=== PATIENT | male | born 1960 | race Caucasian/White ===

== ENCOUNTER 2022-05-30 18:11 | Emergency (ER) | payer MEDICARE, SELFPAY ==
[2022-05-30 18:22] VITALS: BP 144/94; PULSE 99; RESP 18; TEMP 38.2; O2SAT 95
[2022-05-30 18:24] LABS: Basophils % 0.4 %; Hematocrit 49.3 % (42.0-52.0); Hemoglobin 16.9 g/dL (11.7-16.6); Lymphocytes # 1.4 10^3/uL (0.8-4.8); Mean Corpuscular HGB Conc 34.3 g/dL (30.0-36.0); Mean Corpuscular Hemoglobin 30.3 pg (28.0-34.0); Mean Corpuscular Volume 88.4 fl (80-94); Mean Platelet Volume 11.3 fL (7.4-10.4); Monocytes # 0.6 10^3/uL (0.2-0.9); Monocytes % 10.6 %; Neutrophils # 3.26 10^3/uL (1.8-7.7); Neutrophils % 62.6 %; Nucleated Red Blood Cells % 0 %; Platelet Count 139 10^3/cmm (130-400); Red Blood Count 5.58 10^6/uL (4.1-5.3); Red Cell Distribution Width 12.5 % (12.1-15.1); White Blood Count 5.2 10^3/uL (4.0-10.0)
--- NOTE | 2022-05-30 19:12 | CTR_ITS ---
PROCEDURE INFORMATION: Exam: CT Abdomen And Pelvis Without Contrast Exam date and time: 05/30/2022 8:00 PM Age: 61 years old Clinical indication: Other: Rlq; Prior surgery; Surgery date: 6+ months; Surgery type: Inguinal hernia repair and lumbar surgery; Patient HX: Patient felt excruciating pain after lifting a box of 18 x 18 ceramic tile; Additional info: Abd pain TECHNIQUE: Imaging protocol: Computed tomography of the abdomen and pelvis without contrast. Sagittal and coronal reformatted images were created and reviewed. Radiation optimization: All CT scans at this facility use at least one of these dose optimization techniques: automated exposure control; mA and/or kV adjustment per patient size (includes targeted exams where dose is matched to clinical indication); or iterative reconstruction. COMPARISON: No relevant prior studies available. RADIATION DOSE METRICS: Total DLP (mGy-cm): 1286.23 FINDINGS: Limitations: Evaluation of solid organs and vasculature is limited without intravenous contrast. Lungs: Mild elevation of the right hemidiaphragm. Compressive atelectasis in the right middle and lower lobes. Pleural spaces: No pleural effusion. Heart: Mild enlargement of the heart. Liver: Diffuse, mildly decreased attenuation in the liver. Findings are consistent with mild fatty infiltration. Gallbladder and bile ducts: The gallbladder is unremarkable. No biliary ductal dilatation. Pancreas: The pancreas is unremarkable. No pancreatic ductal dilatation. Spleen: The spleen is unremarkable. Adrenal glands: The right and left adrenal glands are unremarkable. Kidneys and ureters: The right and left kidneys are unremarkable. The right and left ureters are unremarkable. Stomach and bowel: Scattered diverticula in the sigmoid colon. No evidence for diverticulitis. No acute abnormality in the small bowel. No acute abnormality in the stomach. Appendix: Appendix not definitely visualized. No inflammatory changes in the pericecal region however. Intraperitoneal space: No free intraperitoneal air. No ascites. No loculated fluid collections to suggest an abscess. Vasculature: Mild atherosclerotic changes in the visualized arteries. No evidence for aortic aneurysm. Lymph nodes: No lymphadenopathy. Urinary bladder: The bladder is incompletely filled, which can limit evaluation. No focal abnormality in the bladder however. Reproductive: Nonspecific parenchymal calcifications in the prostate gland. Bones/joints: Moderate degenerative changes at both the right and left hips. Patient has had previous posterior fusion at L5-S1 with an L5 laminectomy. Multilevel degenerative changes of varying severity in the visualized spine. No acute fracture. Soft tissues: No acute abnormality in the extra-abdominal soft tissues. CT/CT abdomen pelvis wo con [id number] IMPRESSION: 1. No acute abnormality in the abdomen or pelvis. 2. No evidence for acute traumatic injury in the abdomen or pelvis. 3. Mild fatty infiltration of the liver. 4. Scattered diverticula in the sigmoid colon. No evidence for diverticulitis. 5. Incidental/nonacute findings are listed in the report.
--- NOTE | 2022-05-30 19:13 | ED_ITS ---
HPI - Abdominal Pain General: Chief Complaint: Abdominal Pain Stated Complaint: ABDOMINAL PAIN/ HEADACHE Time Seen by Provider: 05/30/22 19:07 Source: patient Mode of arrival: ambulatory Limitations: no limitations History of Present Illness: 61-year-old male who states that he has been having abdominal pain throughout the day. States he is actually had pain for 2 weeks with a getting much worse over the last 2 days. Patient states that pain is sharp and mainly in his lower abdomen. He had low-grade fevers as well as some mild body aches and headache. Denies any vomiting or diarrhea denies any chest pain. Associated Symptoms: Reports fever(s); Denies chills and dysuria Review of Systems Const: Reports: fever(s) and body aches; Denies: chills or change in appetite Eyes: Denies: blurry vision or eye discomfort ENMT: Denies: throat pain or dental pain Card: Denies: chest pain Resp: Denies: dyspnea GI: Reports: abdominal pain : Denies: dysuria Musc: Denies: neck pain or back pain Skin/Breast: Denies: rash Neuro: Denies: headache(s) Psych: Denies: depression Mike/Lymph: Denies: easy bruising All/Imm: Denies: urticaria PFSH ED PFSH: Medical History No pertinent past medical history Social History Substance/Drug Use: never Physical Exam Const: COMMON NORMALS: no acute distress, patient oriented x3 and healthy appearing HENMT: COMMON NORMALS: normocephalic and atraumatic HEAD & SCALP: normocephalic and atraumatic Eye: COMMON NORMALS: Equal, round and reactive pupils present and EOMs intact bilaterally PUPIL: Yes Equal, round and reactive pupils present Neck/C-Spine: COMMON NORMALS: full ROM and supple Chest: COMMONS NORMALS: normal inspection of the chest and normal palpation of entire chest wall Resp: COMMON NORMALS: normal respiratory effort, No retractions, No use of accessory muscles and clear to auscultation bilaterally AUSCULTATION: clear to auscultation bilaterally Cardio: COMMON NORMALS: regular rate, regular rhythm and No murmurs present (Cardio) RATE: regular rate RHYTHM: regular rhythm GI: COMMON NORMALS: Normal to inspection, nondistended, normoactive bowel sounds present, Soft to palpation and no masses PALPATION: Yes Soft to palpation and Yes Tenderness to palpation present (GI) Details: RLQ Extremity: COMMON NORMALS: normal to inspection and full ROM Neuro: COMMON NORMALS: patient oriented x3, moves all extremities and no focal motor deficits Psych: COMMON NORMALS: mental status grossly normal, Normal thought process present and cooperative THOUGHT PROCESS: Normal thought process present Skin: COMMON NORMALS: no rashes or lesions noted and no wounds GENERAL SKIN EXAM: no rashes or lesions noted Course Vital Signs: Vital signs: Vital Signs Temperature 101.8 F H 05/30/22 19:24 Pulse Rate 84 05/30/22 20:33 Respiratory Rate 18 05/30/22 20:33 Blood Pressure 111/72 05/30/22 20:33 Pulse Oximetry 93 05/30/22 20:33 MDM - Abdominal Pain Medical Decision Making Patient presents here with abdominal pain he does have a fever well he could have a viral illness is CT here is normal blood work is normal as well his COVID is negative he has no signs of pneumonia. He is to follow-up with his PCP in 2 to 4 days and return if worsening he understands and agrees to plan. Lab Data : 05/30/22 17:07 05/30/22 19:20 Labs/Radiology: Radiology Impressions Abdomen/Pelvis CT 05/30/22 19:12 IMPRESSION: 1. No acute abnormality in the abdomen or pelvis. 2. No evidence for acute traumatic injury in the abdomen or pelvis. 3. Mild fatty infiltration of the liver. 4. Scattered diverticula in the sigmoid colon. No evidence for diverticulitis. 5. Incidental/nonacute findings are listed in the report. Chest X-Ray 05/30/22 21:30 IMPRESSION: 1. No acute cardiopulmonary process. 2. Incidental/nonacute findings are listed in the report. Laboratory Results WBC 5.2 10^3/uL (4.0-10.0) 05/30/22 17:07 RBC 5.58 10^6/uL (4.1-5.3) H 05/30/22 17:07 Hgb 16.9 g/dL (11.7-16.6) H 05/30/22 17:07 Hct 49.3 % (42.0-52.0) 05/30/22 17:07 MCV 88.4 fl (80-94) 05/30/22 17:07 MCH 30.3 pg (28.0-34.0) 05/30/22 17:07 MCHC 34.3 g/dL (30.0-36.0) 05/30/22 17:07 RDW 12.5 % (12.1-15.1) 05/30/22 17:07 Plt Count 139 10^3/cmm (130-400) 05/30/22 17:07 MPV 11.3 fL (7.4-10.4) H 05/30/22 17:07 Neut % (Auto) 62.6 % 05/30/22 17:07 Lymph % (Auto) 26.0 % 05/30/22 17:07 [place] % (Auto) 10.6 % 05/30/22 17:07 Eos % (Auto) 0.0 % 05/30/22 17:07 Baso % (Auto) 0.4 % 05/30/22 17:07 Neut # (Auto) 3.26 10^3/uL (1.8-7.7) 05/30/22 17:07 Lymph # (Auto) 1.4 10^3/uL (0.8-4.8) 05/30/22 17:07 [place] # (Auto) 0.6 10^3/uL (0.2-0.9) 05/30/22 17:07 Eos # (Auto) 0.0 10^3/uL (0.0-0.8) 05/30/22 17:07 Baso # (Auto) 0.0 10^3/uL (0.0-0.1) 05/30/22 17:07 Nucleated RBC % (auto) 0 % 05/30/22 17:07 Nucleated RBCs # 0.0 /100WBC 05/30/22 17:07 Sodium 135 mmol/L (136-145) L 05/30/22 19:20 Potassium 3.8 mmol/L (3.5-5.1) 05/30/22 19:20 Chloride 100 mmol/L (98-107) 05/30/22 19:20 Carbon Dioxide 21 mmol/L (22-29) L 05/30/22 19:20 Anion Gap 17.8 (5-19) 05/30/22 19:20 BUN 11 mg/dL (8-23) 05/30/22 19:20 Creatinine 0.9 mg/dL (0.7-1.2) 05/30/22 19:20 GFR Calculation 86.1 mL/min (90-130) L 05/30/22 19:20 Glucose 111 mg/dL (65-115) 05/30/22 19:20 Calculated Osmolality 280 mOsm/kg (285-295) L 05/30/22 19:20 Calcium 8.6 mg/dL (8.5-10.5) 05/30/22 19:20 Total Bilirubin 0.6 mg/dL (0.15-1.2) 05/30/22 19:20 AST 50 U/L (0-40) H 05/30/22 19:20 ALT 63 U/L (0-41) H 05/30/22 19:20 Alkaline Phosphatase 126 IU/L (40-130) 05/30/22 19:20 Total Protein 7.0 g/dL (6.6-8.7) 05/30/22 19:20 Albumin 4.2 g/dL (3.5-5.2) 05/30/22 19:20 Globulin 2.8 g/dL (1.3-4.6) 05/30/22 19:20 Lipase 101 U/L (13-60) H 05/30/22 19:20 Urine Color Yellow (Yellow) 05/30/22 19:17 Urine Appearance Clear (CLEAR) 05/30/22 19:17 Urine pH 7 (5-7) 05/30/22 19:17 Ur Specific [place] 1.010 (1.005-1.030) 05/30/22 19:17 Urine Protein Neg (Negative) 05/30/22 19:17 Urine Glucose (UA) Norm (Normal) 05/30/22 19:17 Urine Ketones Negative (Negative) 05/30/22 19:17 Urine Blood Neg (Negative) 05/30/22 19:17 Urine Nitrate Negative (Negative) 05/30/22 19:17 Urine Bilirubin Neg (Negative) 05/30/22 19:17 Urine Urobilinogen 1 mg/dL (Negative) H 05/30/22 19:17 Ur Leukocyte Esterase Negative (Negative) 05/30/22 19:17 Discharge Plan Discharge Patient Disposition: Home Clinical Impression: Abdominal pain Prescriptions: New hydrocodone-acetaminophen 5-325 mg tablet 1 tab PO Q6H PRN (Reason: pain) Qty: 14 0RF ondansetron 4 mg tablet,disintegrating 4 mg PO Q6H PRN (Reason: nausea and vomiting) Qty: 14 0RF Discharge Orders: Discharge ED (Routine); Ordered 05/30/22 Ordered By: Kalyan Ku Discharge Diet: Advance as tolerated Discharge Activity: Resume usual activity Patient Instructions: Abdominal Pain (ED), Opioid Safety Coding 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
[2022-05-30 19:24] VITALS: BP 133/92; PULSE 94; RESP 20; TEMP 38.8; O2SAT 92
[2022-05-30 19:29] VITALS: RESP 20
[2022-05-30] MEDS: acetaminophen 325 mg Tablet 650 MG PO (19:29)
[2022-05-30] MEDS: morphine 4 mg/mL SDV 1 mL IVP (19:29)
[2022-05-30] MEDS: ondansetron 2 mg/ML SDV 2 mL 4 MG IVP (19:30)
[2022-05-30] MEDS: sodium chloride 0.9% 1,000 ML 999 ML IV (19:30)
[2022-05-30 19:40] LABS: Add Urine Microscopic? NO; Charge for UA Resulting for Rev
[2022-05-30 19:48] LABS: Alanine Aminotransferase 63 U/L (0-41); Albumin Level 4.2 g/dL (3.5-5.2); Alkaline Phosphatase 126 IU/L (40-130); Anion Gap 17.8 (5-19); Aspartate Amino Transferase 50 U/L (0-40); Blood Urea Nitrogen 11 mg/dL (8-23); Calcium 8.6 mg/dL (8.5-10.5); Carbon Dioxide 21 mmol/L (22-29); Chloride 100 mmol/L (98-107); Globulin 2.8 g/dL (1.3-4.6); Glomerular Filtration Rate 86.1 mL/min (90-130); Glucose 111 mg/dL (65-115); Lipase 101 U/L (13-60); Osmolality Calculated 280 mOsm/kg (285-295); Potassium 3.8 mmol/L (3.5-5.1); Sodium 135 mmol/L (136-145); Total Bilirubin 0.6 mg/dL (0.15-1.2)
[2022-05-30 19:51] LABS: Bilirubin Urine Neg (Negative); Blood Urine Neg (Negative); Glucose Urine UA Norm (Normal); Ketones Urine Negative (Negative); Leukocyte Esterase Urine Negative (Negative); Nitrate Urine Negative (Negative); Protein Urine Neg (Negative); Urine Appearance Clear (CLEAR); Urine Color Yellow (Yellow); Urobilinogen Urine 1 mg/dL (Negative); pH Urine 7 (5-7)
[2022-05-30 20:33] VITALS: BP 111/72; PULSE 84; RESP 18; O2SAT 93
--- NOTE | 2022-05-30 21:30 | XRR_ITS ---
PROCEDURE INFORMATION: Exam: XR Chest Exam date and time: 05/30/2022 9:40 PM Age: 61 years old Clinical indication: Fever; Prior surgery; Surgery date: 6+ months; Surgery type: Cervical fusion TECHNIQUE: Imaging protocol: Radiologic exam of the chest. Views: 1 view. COMPARISON: CT abdomen pelvis wo con [id number] 05/30/2022 8:00 PM FINDINGS: Lungs: Stable mild elevation of the right hemidiaphragm. Lungs are clear bilaterally. Pleural spaces: No pleural effusion. No pneumothorax. Heart/Mediastinum: The cardiac silhouette and mediastinal contours are unremarkable. Bones/joints: Patient has had a prior cervical spine fusion. The patient has had a previous right rotator cuff repair. XR/XR chest 1V portable [id number] IMPRESSION: 1. No acute cardiopulmonary process. 2. Incidental/nonacute findings are listed in the report.
[2022-05-30 22:49] VITALS: BP 111/86; PULSE 73; RESP 20; TEMP 36.9; O2SAT 94
== END 2022-05-30 22:50 | disposition home or self-care (01) ==
PROVIDERS: Emergency Provider Emergency Medicine
DX: R10.30 Lower abdominal pain, unspecified (principal)
CPT/HCPCS: 71045; 74176; 80053; 81003; 83690; 85025; 96361; 96374; 96375; 99285; J2270; J2405; J7030

== ENCOUNTER 2022-07-08 00:38 | Emergency (ER) | payer MEDICARE, SELFPAY ==
[2022-07-08 00:42] VITALS: BP 164/105; PULSE 85; RESP 18; TEMP 36.8; O2SAT 95; BMI 33.3
[2022-07-08 00:47] VITALS: BP 120/75; PULSE 78; RESP 18; O2SAT 97
--- NOTE | 2022-07-08 00:47 | CTR_ITS ---
PROCEDURE INFORMATION: Exam: CT Lumbar Spine Without Contrast Exam date and time: 07/08/2022 1:04 AM Age: 61 years old Clinical indication: Injury or trauma; Other: Dry wall fell on head; Blunt trauma (contusions or hematomas); Injury details: PT states a bundle of drywall fell on his head. C/O neck, head, and back pain. C-collar in place; Prior surgery; Surgery type: Lumbar TECHNIQUE: Imaging protocol: Computed tomography of the lumbar spine without contrast. Radiation optimization: All CT scans at this facility use at least one of these dose optimization techniques: automated exposure control; mA and/or kV adjustment per patient size (includes targeted exams where dose is matched to clinical indication); or iterative reconstruction. COMPARISON: CT thoracic spin wo con* [id number] 07/08/2022 1:01 AM RADIATION DOSE METRICS: Total DLP (mGy-cm): 886.38 FINDINGS: Bones/joints: No evidence of acute fracture or subluxation. Normal vertebral body height. Mild lower lumbar spondylosis with degenerative endplate spurring. Previous L5-S1 laminectomies, discectomy, posterior decompression and fusion with disc spacer, right posterior fusion west and pedicle screws in place as well as left S1 pedicle screw. Evidence of prior left L5 pedicle screw removal. Possible bilateral L5 spondylolysis versus postsurgical changes. Discs/Spinal canal/Neural foramina: No acute abnormality. No significant spinal stenosis. Moderate bilateral L4 foraminal stenosis. Soft tissues: No significant soft tissue abnormalities. CT/CT lumbar spine wo con* [id number] IMPRESSION: 1. No evidence of acute fracture or subluxation. 2. Lower lumbar degenerative and postsurgical changes as described. 3. Possible bilateral L5 spondylolysis versus postsurgical changes.
--- NOTE | 2022-07-08 00:47 | CTR_ITS ---
PROCEDURE INFORMATION: Exam: CT Thoracic Spine Without Contrast Exam date and time: 07/08/2022 1:01 AM Age: 61 years old Clinical indication: Injury or trauma; Other: Dry wall fell on head; Blunt trauma (contusions or hematomas); Injury details: PT states a bundle of drywall fell on his head. C/O neck, head, and back pain. C-collar in place TECHNIQUE: Imaging protocol: Computed tomography of the thoracic spine without contrast. Radiation optimization: All CT scans at this facility use at least one of these dose optimization techniques: automated exposure control; mA and/or kV adjustment per patient size (includes targeted exams where dose is matched to clinical indication); or iterative reconstruction. COMPARISON: CT cervical spin wo con* [id number] 07/08/2022 12:59 AM RADIATION DOSE METRICS: Total DLP (mGy-cm): 1059.21 FINDINGS: Bones/joints: No evidence of acute fracture or subluxation. Grossly normal alignment and vertebral body height. [id number] thoracic spondylosis with degenerative endplate spurring. Previous lower cervical spine fusion with metallic hardware in place. Discs/Spinal canal/Neural foramina: No acute findings. No significant spinal stenosis. Soft tissues: No significant soft tissue abnormalities. CT/CT thoracic spin wo con* [id number] IMPRESSION: No evidence of acute fracture or subluxation.
--- NOTE | 2022-07-08 00:47 | CTR_ITS ---
PROCEDURE INFORMATION: Exam: CT Head Without Contrast Exam date and time: 07/08/2022 12:56 AM Age: 61 years old Clinical indication: Injury or trauma; Other: Dry wall fell onhead; Blunt trauma (contusions or hematomas); Injury details: PT states a bundle of drywall fell on his head. C/O neck, head, and back pain. C-collar in place; Prior surgery TECHNIQUE: Imaging protocol: Computed tomography of the head without contrast. Radiation optimization: All CT scans at this facility use at least one of these dose optimization techniques: automated exposure control; mA and/or kV adjustment per patient size (includes targeted exams where dose is matched to clinical indication); or iterative reconstruction. COMPARISON: No relevant prior studies available. RADIATION DOSE METRICS: Total DLP (mGy-cm): 1218.88 FINDINGS: Brain: No hemorrhage. No mass effect. Cerebral ventricles: No ventriculomegaly. Paranasal sinuses: Visualized sinuses are unremarkable. No fluid levels. Mastoid air cells: Visualized mastoid air cells are well aerated. Bones/joints: Unremarkable. No acute fracture. Soft tissues: Unremarkable. CT/CT head wo con* [id number] IMPRESSION: No acute intracranial abnormality.
--- NOTE | 2022-07-08 00:47 | CTR_ITS ---
PROCEDURE INFORMATION: Exam: CT Cervical Spine Without Contrast Exam date and time: 07/08/2022 12:59 AM Age: 61 years old Clinical indication: Injury or trauma; Other: Dry wall fell on head; Blunt trauma; Injury details: PT states a bundle of drywall fell on his head. C/O neck, head, and back pain. C-collar in place; Prior surgery TECHNIQUE: Imaging protocol: Computed tomography of the cervical spine without contrast. Radiation optimization: All CT scans at this facility use at least one of these dose optimization techniques: automated exposure control; mA and/or kV adjustment per patient size (includes targeted exams where dose is matched to clinical indication); or iterative reconstruction. COMPARISON: CT head wo con* [id number] 07/08/2022 12:56 AM RADIATION DOSE METRICS: Total DLP (mGy-cm): 247.47 FINDINGS: Bones/joints: C6-C7 intervertebral body fusion changes are appreciated. No acute fracture. Mild degenerative changes are present at C5-C6 and C7-T1. Spinal alignment is normal. Lungs: Lung apices are normal. Soft tissues: Unremarkable. CT/CT cervical spin wo con* [id number] IMPRESSION: No cervical spine fracture.
[2022-07-08] MEDS: HYDROcodone-acetaminophen 5-325 mg Tablet 1 TAB PO (00:58)
--- NOTE | 2022-07-08 00:58 | W.ED.TRAUMA ---
HPI - Trauma General: Chief Complaint: Trauma Stated Complaint: DRY WALL FELL ON HEAD Time Seen by Provider: 07/08/22 00:39 Source: patient and EMS Mode of arrival: EMS Limitations: no limitations History of Present Illness: 61-year-old male states that couple hours ago he was helping a friend unloading drywall states that his friend was releasing the telemetry bed of the truck and the drywall fell directly onto his head. He states it was a straight load directly on his head he has had neck and back pain currently he is in a c-collar he rates his pain a 6 out of 10 he has been ambulatory since event. Associated symptoms: Reports back pain and headache(s); Denies abdominal pain, chest pain, chills, dental pain, fever(s), nausea or vomiting Review of Systems Const: Denies: fever(s), chills, body aches or change in appetite Eyes: Denies: blurry vision or eye discomfort ENMT: Denies: throat pain or dental pain Card: Denies: chest pain Resp: Denies: dyspnea GI: Denies: abdominal pain, nausea, vomiting or diarrhea : Denies: dysuria Musc: Reports: neck pain and back pain Skin/Breast: Denies: rash Neuro: Reports: headache(s) Psych: Denies: depression Mike/Lymph: Denies: easy bruising All/Imm: Denies: urticaria PFSH ED PFSH: Medical History No pertinent past medical history Social History (Updated 07/08/22 @ 00:58 by Kalyan Ku MD) Substance/Drug Use: unknown Physical Exam Const: COMMON NORMALS: no acute distress, patient oriented x3 and healthy appearing HENMT: COMMON NORMALS: normocephalic and atraumatic HEAD & SCALP: normocephalic and atraumatic Eye: COMMON NORMALS: Equal, round and reactive pupils present and EOMs intact bilaterally PUPIL: Yes Equal, round and reactive pupils present Neck/C-Spine: OTHER: currently in c collar Chest: COMMONS NORMALS: normal inspection of the chest and normal palpation of entire chest wall Resp: COMMON NORMALS: normal respiratory effort, No retractions, No use of accessory muscles and clear to auscultation bilaterally AUSCULTATION: clear to auscultation bilaterally Cardio: COMMON NORMALS: regular rate, regular rhythm and No murmurs present (Cardio) RATE: regular rate RHYTHM: regular rhythm GI: COMMON NORMALS: Normal to inspection, nondistended, normoactive bowel sounds present, Soft to palpation, non-tender and no masses PALPATION: Yes Soft to palpation Back/Pelvis: OTHER: Tenderness to thoracic and lumbar spine with no obvious deformities Extremity: COMMON NORMALS: normal to inspection and full ROM Neuro: COMMON NORMALS: patient oriented x3, moves all extremities and no focal motor deficits Psych: COMMON NORMALS: mental status grossly normal, Normal thought process present and cooperative THOUGHT PROCESS: Normal thought process present Skin: COMMON NORMALS: no rashes or lesions noted and no wounds GENERAL SKIN EXAM: no rashes or lesions noted Course Vital Signs: Vital signs: Vital Signs Temperature 98.2 F 07/08/22 00:42 Pulse Rate 78 07/08/22 00:47 Respiratory Rate 18 07/08/22 00:47 Blood Pressure 120/75 07/08/22 00:47 Pulse Oximetry 97 07/08/22 00:47 Oxygen Delivery Me thod 07/08/22 00:47 Oxygen Flow Rate 2 07/08/22 00:47 MDM - Trauma Medical Decision Making Patient presents here with a cervical strain along with back pain and head injury patient's CAT scans here are normal he is well-appearing here he is stable for discharge she is to follow-up with PCP and return if worsening he understands agrees to plan. Lab Data Radiology Impressions Cervical Spine CT 07/08/22 00:47 IMPRESSION: No cervical spine fracture. Head CT 07/08/22 00:47 IMPRESSION: No acute intracranial abnormality. Lumbar Spine CT 07/08/22 00:47 IMPRESSION: 1. No evidence of acute fracture or subluxation. 2. Lower lumbar degenerative and postsurgical changes as described. 3. Possible bilateral L5 spondylolysis versus postsurgical changes. Thoracic Spine CT 07/08/22 00:47 IMPRESSION: No evidence of acute fracture or subluxation. Discharge Plan Discharge Patient Disposition: Home Clinical Impression: Neck sprain Closed head injury Qualifiers: Encounter type: initial encounter Qualified Code(s): S09.90XA - Unspecified injury of head, initial encounter Prescriptions: New methocarbamol 750 mg tablet 750 mg PO Q6H PRN (Reason: spasms) Qty: 20 0RF Naprosyn 500 mg tablet 500 mg PO BID PRN (Reason: pain) Qty: 20 0RF No Action hydrocodone-acetaminophen 5-325 mg tablet 1 tab PO Q6H PRN (Reason: pain) Qty: 14 0RF ondansetron 4 mg tablet,disintegrating 4 mg PO Q6H PRN (Reason: nausea and vomiting) Qty: 14 0RF Discharge Orders: Discharge ED (Routine); Ordered 07/08/22 Ordered By: Kalyan Ku Discharge Diet: Advance as tolerated Discharge Activity: Resume usual activity Patient Instructions: Head Injury (ED), Cervical Sprain (ED) Coding 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
[2022-07-08 01:47] VITALS: BP 133/74; PULSE 81; RESP 17; O2SAT 95
[2022-07-08 01:58] VITALS: BP 133/74; PULSE 81; RESP 17; O2SAT 95
== END 2022-07-08 02:00 | disposition home or self-care (01) ==
PROVIDERS: Emergency Provider Emergency Medicine
DX: S09.8XXA Other specified injuries of head, initial encounter (principal); S13.9XXA Sprain of joints and ligaments of unspecified parts of neck, initial encounter; W20.8XXA Other cause of strike by thrown, projected or falling object, initial encounter
CPT/HCPCS: 70450; 72125; 72128; 72131; 99284

== ENCOUNTER 2025-06-02 13:57 | Inpatient (IN) | payer MEDICARE, SELFPAY ==
[2025-06-02] VITALS (39 sets, daily range): BP systolic 117–169; BP diastolic 63–97; PULSE 61–99; RESP 15–26; TEMP 36.7–36.9; O2SAT 91–99; BMI 33.3
--- NOTE | 2025-06-02 14:01 | ECG_ITS ---
[facility] Test Date: 2025-06-02 Pat Name: Eliecer Ngo Department: Room: Gender: Male Pc Support Specialist: : [id number] Requested By: Coni Villanueva Order Number: [id number] [place] MD: Eve Rodriguez M.D. Measurements Intervals [place] Rate: 77 P: 44 NE: 158 QRS: 0 QRSD: 78 T: 10 QT: 366 QTc: 417 Interpretive Statements SINUS RHYTHM No previous ECG available for comparison Electronically Signed On 06-03-2025 15:21:03 CDT by Eve Rodriguez M.D. [email or web address] [id number]
--- NOTE | 2025-06-02 14:02 | XR_ITS ---
WS: [id number] Exam: XR chest 1V portable [id number] Date/Time of Exam: 06/02/2025 2:02 PM Reason For Exam: Chest pain Comparison 05/30/2022. Lungs are fully expanded and clear. Chronic elevation of the RIGHT diaphragm. Normal cardiomediastinal silhouette. Fusion hardware in the lower C-spine. Bony structures are intact. 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 XR/XR chest 1V portable [id number] IMPRESSION: 1. No acute cardiopulmonary finding.
--- NOTE | 2025-06-02 14:06 | ED_ITS ---
HPI - Chest Pain 2 General: Chief Complaint: Chest Pain Stated Complaint: chest pain Time Seen by Provider: 06/02/25 13:58 History of Present Illness: 64-year-old man with a history of hypert ension and obesity who presents emergency room by ambulance with chest pain. This started about an hour ago while he was out mowing on a 0 turn lawnmower. He has no cardiac history. Pain was central. Was not relieved with nitro or Nitropaste but did have some relief with fentanyl. Said it radiated to his left arm his left neck and shoulder and to his back. He had some nausea. No lower extremity swelling. No shortness of breath. No abdominal pain. Related Data Previous Rx's ?Medication ?Instructions ?Recorded hydrocodone 5 mg-acetaminophen 325 1 tab PO Q6H PRN pa in #14 tabs 05/30/22 mg tablet ondansetron 4 mg disintegrating 4 mg PO Q6H PRN nausea and 05/30/22 tablet vomiting #14 tabs methocarbamol 750 mg tablet 750 mg PO Q6H PRN spasms # 20 tabs 07/08/22 naproxen 500 mg tablet (Naprosyn) 500 mg PO BID PRN pa in #20 tabs 07/08/22 Allergies Allergy/AdvReac Type Severity Reaction Status Date / Time No Known Allergies Allergy Verified 05/30/22 18:25 Review of Systems 2 Narrative: Constitutional symptoms: Negative except as documented in HPI. Skin symptoms: Negative except as documented in HPI. Eye symptoms: Negative except as documented in HPI. ENMT symptoms: Negative except as documented in HPI. Respiratory symptoms: Negative except as documented in HPI. Cardiovascular symptoms: Negative except as documented in HPI. Gastrointestinal symptoms: Negative except as documented in HPI. Genitourinary symptoms: Negative except as documented in HPI. Musculoskeletal symptoms: Negative except as documented in HPI. Neurologic symptoms: Negative except as documented in HPI. Psychiatric symptoms: Negative except as documented in HPI. Endocrine symptoms: Negative except as documented in HPI. PFSH ED 2 PFSH: Medical History (Updated 06/02/25 @ 17:16 by Coni Lombardi MD) No pertinent past medical history Social History (Updated 07/08/22 @ 00:58 by Kalyan Ku MD) Substance/Drug Use: unknown Physical Exam 2 Narrative: EXAM NARRATIVE: General: Alert, no acute distress. Skin: Warm, dry. Head: Normocephalic, atraumatic. Neck: Supple, trachea midline. Eye: Extraocular movements are intact. Ears, nose, mouth and throat: mucosa moist. Cardiovascular: Regular, Normal peripheral perfusion. Respiratory: Lungs are clear to auscultation, respirations are non-labored, breath sounds are equal, Symmetrical chest wall expansion. Gastrointestinal: Soft, Nontender, Non distended Musculoskeletal: Normal ROM, no deformity. Neurological: Alert and oriented, No focal neurological deficit observed. Psychiatric: Cooperative, appropriate mood & affect. Course 2 Vital Signs: Vital signs: Vital Signs Temperature 98.0 F 06/02/25 13:59 Pulse Rate 67 06/02/25 16:30 Respiratory Rate 19 H 06/02/25 16:25 Blood Pressure 127/83 06/02/25 16:30 Pulse Oximetry 92 06/02/25 16:30 Oxygen Delivery Me thod Room Air 06/02/25 16:30 MDM - Chest Pain Medical Decision Making Differential diagnosis for patient with chest pain includes but is not limited to and based on the above HPI, review of systems and physical exam: Pneumonia. unstable angina. angina. Acute coronary syndrome / [place]. Pulmonary embolism. Costochondritis / musculoskeletal. Pleurisy. Pericarditis. Esophageal spasm. Pancreatis. Cholecystitis. Orders placed to evaluate differential diagnosis based on the above differential, HPI and physical exam EKG: Time 1403. Rate 77. Normal sinus rhythm, No ST-T changes, no ectopy, normal NC & QRS intervals, This was reviewed and interpreted by myself the ER physician at 1408 Chest x-ray: No acute process. No infiltrate. No pneumothorax. This was reviewed and interpreted by myself the emergency room physician. I also reviewed the radiology report. Lab Review: Laboratory results were reviewed and interpreted by myself the emergency room physician. No leukocytosis. No anemia. No renal failure. Lipase is normal. proBNP is negative. Initial troponin was 11. Repeat is 16. This is not significant or above normal but is a slight upward change. D-dimer was negative. Repeat EKG: Time 1615. Rate 66. Normal sinus rhythm, No ST-T changes, no ectopy, normal NC & QRS intervals, This was reviewed and interpreted by myself the ER physician at 1620 I reviewed the patient's medical record. Reexamination: Patient remained stable. No increased work of breathing. No altered mental status. No focal motor deficits. Patient has a heart score of 4 which would recommend observation. Patient is also not comfortable going home. [place] Chest pain did improve with Toradol, and morphine Consultation: I spoke with Dr. Sheth who is on-call for the hospitalist service who agrees to admission to observation on the cardiac stepdown unit. Assessment and plan: Noncardiac chest pain -I discussed the patient with the hospitalist on-call who is admitting the patient. - Discussed findings and plan with patient. Answered any questions. - All laboratory values were reviewed and interpreted personally by myself, the ER physician - All imaging was reviewed and interpreted personally by myself, the ER physician. - Evaluation and treatment of this problem were appropriate in the emergency setting Lab Data 06/02/25 14:11 06/02/25 14:11 Radiology Impressions Chest X-Ray 06/02/25 14:02 IMPRESSION: 1. No acute cardiopulmonary finding. Laboratory Results WBC 7.00 10^3/uL (3.29-11.43) 06/02/25 14:11 RBC 5.26 10^6/uL (3.85-5.65) 06/02/25 14:11 Hgb 15.50 g/dL (11.27-16.99) 06/02/25 14:11 Hct 46.9 % (37-53) 06/02/25 14:11 MCV 89.2 fl (82-101) 06/02/25 14:11 MCH 29.5 pg (27-33) 06/02/25 14:11 MCHC 33.0 g/dL (30-55) 06/02/25 14:11 RDW 13.0 % (12.1-15.1) 06/02/25 14:11 Plt Count 229 10^3/cmm (157-399) 06/02/25 14:11 MPV 9.7 fL (7.4-10.4) 06/02/25 14:11 Neut % (Auto) 62.2 % 06/02/25 14:11 Lymph % (Auto) 29.0 % 06/02/25 14:11 Hickory % (Auto) 7.3 % 06/02/25 14:11 Eos % (Auto) 0.4 % 06/02/25 14:11 Baso % (Auto) 0.7 % 06/02/25 14:11 Neut # (Auto) 4.35 10^3/uL (1.8-7.7) 06/02/25 14:11 Lymph # (Auto) 2.0 10^3/uL (0.8-4.8) 06/02/25 14:11 [place] # (Auto) 0.5 10^3/uL (0.2-0.9) 06/02/25 14:11 Eos # (Auto) 0.0 10^3/uL (0.0-0.8) 06/02/25 14:11 Baso # (Auto) 0.1 10^3/uL (0.0-0.1) 06/02/25 14:11 Nucleated RBC % (auto) 0 % 06/02/25 14:11 Nucleated RBCs # 0.0 /100WBC 06/02/25 14:11 D-Dimer <= 0.27 ug/mLFEU (0-0.59) 06/02/25 14:11 Sodium 139 mmol/L (136-145) 06/02/25 14:11 Potassium 3.7 mmol/L (3.5-5.1) 06/02/25 14:11 Chloride 103 mmol/L (98-107) 06/02/25 14:11 Carbon Dioxide 22 mmol/L (22-29) 06/02/25 14:11 Anion Gap 17.7 (5-19) 06/02/25 14:11 BUN 11 mg/dL (8-23) 06/02/25 14:11 Creatinine 0.9 mg/dL (0.7-1.2) 06/02/25 14:11 GFR Calculation 85.2 mL/min (90-130) L 06/02/25 14:11 Glucose 134 mg/dL (65-115) H 06/02/25 14:11 Calculated Osmolality 289 mOsm/kg (285-295) 06/02/25 14:11 Calcium 8.9 mg/dL (8.5-10.5) 06/02/25 14:11 Total Bilirubin 0.5 mg/dL (0.15-1.2) 06/02/25 14:11 AST 20 U/L (0-40) 06/02/25 14:11 ALT 25 U/L (0-41) 06/02/25 14:11 Alkaline Phosphatase 98 U/L (40-130) 06/02/25 14:11 Troponin T Baseline 11 ng/L (0-15) 06/02/25 14:11 Troponin T 120 Minute 16.60 ng/L (0-15) H 06/02/25 16:06 Delta Troponin T 5.60 ABS# (0-10) 06/02/25 16:06 NT-Pro-B Natriuret Pep 61 pg/mL (0-125) 06/02/25 14:11 Total Protein 7.0 g/dL (6.6-8.7) 06/02/25 14:11 Albumin 4.4 g/dL (3.5-5.2) 06/02/25 14:11 Globulin 2.6 g/dL (1.3-4.6) 06/02/25 14:11 Lipase 48 U/L (13-60) 06/02/25 14:11 All radiology interpretation(s) finalized by discharge Clincial Decision Support The following clinical decision support tools were used to aid in care of the patient HEART Score -> History: Moderately Suspicious, EKG: Normal, Age: 45-64 yrs, Risk Factors: >/=3 Risk Factors, Troponin: Baseline Trop <16 ng/L. Resulting HEART Score: 4. Discharge Plan Discharge Patient Disposition: Placed in Observation Clinical Impression: Non-cardiac chest pain Coding Level of Care Code ED Accessioner for Tarun Saez
[2025-06-02 14:19] LABS: Hematocrit 46.9 % (37-53); Hemoglobin 15.50 g/dL (11.27-16.99); Mean Corpuscular HGB Conc 33.0 g/dL (30-55); Mean Corpuscular Hemoglobin 29.5 pg (27-33); Mean Corpuscular Volume 89.2 fl (82-101); Nucleated Red Blood Cells % 0 %; Platelet Count 229 10^3/cmm (157-399); Red Blood Count 5.26 10^6/uL (3.85-5.65); White Blood Count 7.00 10^3/uL (3.29-11.43)
--- OUTSIDE RECORDS SUMMARY | 2025-06-02 14:20 | XMS_ITS | Encounter Summary ---
Author Organization [facility] Address 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 No / Unsure 12/22/2021 4:00 PM CROZE CUTTER documented as of this encounter Plan of Treatment Not on file documented as of this encounter Visit Diagnoses Not on filedocumented in this encounter Care Teams Rehabilitation Liaison Relationship Specialty Start Date End Date [place] [address] PCP - General Family Practice 12/31/22 documented as of this encounter
--- OUTSIDE RECORDS SUMMARY | 2025-06-02 14:20 | XMS_ITS | Encounter Summary ---
Author Organization [facility] Address [address] [place] [address] Care Team Providers Care Holter Scanning Technician Name Role Phone Catalino Melgoza MD Primary Care Provider [phone] Encounter Details Date Type Department Care Team (Late st Contact Info) Description 12/30/2021 Digital Self COVID-1 9 Monitoring [facility] ABSTRACTION Provider, Abstract NO ADDRESS ON FILE Social History Tobacco Use Types Packs/Day Years Used Date Smoking Tobacco: Never Smokeless Tobacco: Never Sex and Gender Information Value Date Recorded Sex Assigned at Not on file Legal Sex Male 3:48 PM TENTER Gender Identity Not on file Sexual Orientation Not on file COVID-19 Exposure Response Date Recorded In the last month, have you been in contact with someone who was confirmed or suspected to have Coronavirus / COVID-19? No / Unsure 12/22/2021 4:00 PM TENTER documented as of this encounter Plan of Treatment Not on file documented as of this encounter Visit Diagnoses Not on filedocumented in this encounter Care Teams Holter Scanning Technician Relationship Specialty Start Date End Date Catal[place] [address] PCP - General Family Practice 12/31/22 documented as of this encounter
--- OUTSIDE RECORDS SUMMARY | 2025-06-02 14:20 | XMS_ITS | Encounter Summary ---
Author Organization [facility] Address [address] [place] [address] Care Team Providers Care Sponge Press Operator Name Role Phone Catalino Melgoza MD Primary Care Provider [phone] [phone] Encounter Details Date Type Department Care Team (Late st Contact Info) Description 12/29/2021 Digital Self COVID-1 9 Monitoring [facility] ABSTRACTION Provider, Abstract NO ADDRESS ON FILE Social History Tobacco Use Types Packs/Day Years Used Date Smoking Tobacco: Never Smokeless Tobacco: Never Sex and Gender Information Value Date Recorded Sex Assigned at Not on file Legal Sex Male 3:48 PM CARDIOLOGY PHYSICIAN ASSISTANT Gender Identity Not on file Sexual Orientation Not on file COVID-19 Exposure Response Date Recorded In the last month, have you been in contact with someone who was confirmed or suspected to have Coronavirus / COVID-19? No / Unsure 12/22/2021 4:00 PM CARDIOLOGY PHYSICIAN ASSISTANT documented as of this encounter Plan of Treatment Not on file documented as of this encounter Visit Diagnoses Not on filedocumented in this encounter Care Teams Sponge Press Operator Relationship Specialty Start Date End Date [place] [address] PCP - General Family Practice 12/31/22 documented as of this encounter
--- OUTSIDE RECORDS SUMMARY | 2025-06-02 14:20 | XMS_ITS | Encounter Summary ---
Author Organization [facility] Address [address] [place] [address] Care Team Providers Care Digester Cook Name Role Phone Catalino Melgoza MD Primary Care Provider [phone] [phone] Encounter Details Date Type Department Care Team (Late st Contact Info) Description 12/29/2021 Digital Self COVID-1 9 Monitoring [facility] ABSTRACTION Provider, Abstract NO ADDRESS ON FILE Social History Tobacco Use Types Packs/Day Years Used Date Smoking Tobacco: Never Smokeless Tobacco: Never Sex and Gender Information Value Date Recorded Sex Assigned at Not on file Legal Sex Male 3:48 PM TALENT SOURCING SPECIALIST Gender Identity Not on file Sexual Orientation Not on file COVID-19 Exposure Response Date Recorded In the last month, have you been in contact with someone who was confirmed or suspected to have Coronavirus / COVID-19? No / Unsure 12/22/2021 4:00 PM TALENT SOURCING SPECIALIST documented as of this encounter Plan of Treatment Not on file documented as of this encounter Visit Diagnoses Not on filedocumented in this encounter Care Teams Digester Cook Relationship Specialty Start Date End Date [place] [address] PCP - General Family Practice 12/31/22 documented as of this encounter
--- OUTSIDE RECORDS SUMMARY | 2025-06-02 14:20 | XMS_ITS | Clinical Summary ---
Author Organization [facility] Address [address] [address] Phone Care Team Providers Care Experimental Mechanic Spacecraft Name Role Phone Catalino Melgoza MD Primary Care Provider [phone] Allergies No known active allergies Medications cyclobenzaprine (FLEXERIL) 5 mg TabletIndications: Neck pain,Strain of neck muscle, initial encounter Take 1 Tablet (5 mg) by mouth 3 times daily as needed for Spasm. 30 Tablet 1 12/31/19 Active Additional Information Patient not taking.Reported on 07/02/2024 amLODIPine (NORVASC) 5 mg tabletIndications: Benign hypertension Take 1 Tablet (5 mg) by mouth daily. 90 Tablet 2 07/02/20 24 Active predniSONE 5 mg Tablets, Dose PackIndications:Sa livary gland enlargement Take 4 tablets for 3 days then 3 tablets for 3 days then 2 tablets for 3 days and 1 tablet for 3 days 30 Tablet 07/16/20 24 Active gabapentin (NEURONTIN) 300 mg capsuleIndications :Neck pain Take 1 Capsule (300 mg) by mouth 3 times daily. 90 Capsule 3 11/15/20 24 Active simvastatin (ZOCOR) 20 mg tabletIndications: Hyperlipidemia, unspecified hyperlipidemia type Take 1 Tablet (20 mg) by mouth daily at bedtime. 90 Tablet 3 11/15/20 24 Active hydrocortisone (PROCTOZONE-HC) 2.5 % cream with perineal applicatorIndicati ons:Ulcerative colitis with complication, unspecified location (CMS/HCC) Insert by rectum 3 times daily as needed for Hemorrhoids. 28 Gram 3 11/22/20 24 Active Active Problems Problem Noted Date Diagnosed Date Hyperlipemia 07/02/2024 Benign hypertension 07/02/2024 Encounters Date Type Department Care Team Description 05/17/2025 External Device Data [facility] ABSTRACTION Provider, Abstract 05/11/2025 External Device Data [facility] ABSTRACTION Provider, Abstract 05/10/2025 External Device Data [facility] ABSTRACTION Provider, Abstract 04/15/2025 3:45 PM CDT - 04/15/2025 11:59 PM CDT Hospital Encounter [facility] [place] [address] [place] [address] Ambulance, [facility] Discharge Disposition: Home or Self Care 04/14/2025 External Device Data [facility] ABSTRACTION Provider, Abstract 03/08/2025 External Device Data [facility] ABSTRACTION Provider, Abstract from Last 3 Months Social History Tobacco Use Types Packs/Day Years Used Date Smoking Tobacco: Never Smokeless Tobacco: Never Tobacco Cessation:Counseling Given: Not Answered Alcohol Use Standard Drinks/Week Comments Never 0 (1 standard drink = 0.6 oz pur e alcohol) Financial Resource Strain Answer Date R ecorded How hard is it for you to pa y for the very basics like food, housing, medical care, and heating? Not hard at all 11/13/2022 Food Insecurity Answer Date Recorded In the past 12 months, have you worried that your food would run out before you had money to buy more? Never true 11/13/2022 In the past 12 months, did y ou run out of food and didn't have money to buy more? Never true 11/13/2022 Transportation Needs Answer Date Record ed In the past 12 months, has l ack of transportation kept you from medical appointments or from getting medications? No 11/13/2022 Lack of Transportation (Non-Medical) Not on file 11/13/2022 Sex and Gender Information Value Date Recorded Sex Assigned at Not on file Legal Sex Male 3:48 PM FIREBOAT OPERATOR Gender Identity Not on file Sexual Orientation Not on file Last Filed Vital Signs Vital Sign Reading Time Taken Comments Blood Pressure 116/72 07/16/2024 3:29 PM CDT Pulse 89 07/16/2024 3:29 PM CDT Temperature 36.6 C (97.9 F) 07/16/2024 3:29 PM CDT Respiratory Rate 18 07/16/2024 3:29 PM CDT Oxygen Saturation 96% 07/16/2024 3:29 PM CDT Inhaled Oxygen Concentration - - Weight 92.9 kg (204 lb 12.8 oz) 07/16/2024 3:29 PM CDT Height 165.1 cm (5' 5 ) 07/16/2024 3:29 PM CDT Body Mass Index 34.08 07/16/2024 3:29 PM CDT Plan of Treatment Health Maintenance Due Date Last Done Comments FIT/ DNA Q 3 YEARS (AUTO ORDER) 1979 FLEX SIG/CT COLONOGRAPHY Q 5 YEARS (AUTO ORDER) 1979 DTAP/TDAP/TD VACCINES (1 - Tdap) 1980 FIT-DNA Q 3 years 2006 FIT/FOBT Q 1 year 2006 Flex Sig/CT Colonography Q 5 years 2006 ZOSTER VACCINE (1 of 2) 2011 FIT/FOBT Q 1 YEAR (AUTO ORDER) 10/09/2024 10/09/2023 [place] Prev entative Visit/Annual Wellness Visit 11/24/2024 11/13/2022 INFLUENZA VACCINE (#1) 2025 11/13/2022 Pre-Diabetes and Diabetes Screening 07/02/202707/02 COLORECTAL CANCER SCREENING (AUTO ORDER) 12/17/2032 12/17/2022, 12/17/2022 COLORECTAL SCREENING 12/17/2032 12/17/2022, 12/17/19 Colorectal Cancer Screening (AUTO ORDER) 12/17/2032 Colorectal Cancer Screening 12/17/2032 RSV VACCINE (60+ or ) (1 - 1-dose 75+ series) 2036 Procedures Procedure Name Priority Date/Time Associated Diagnosis Comments HEMOGLOBIN A1C Routine 07/02/2024 9:58 AM CDT Wellness examination ENDOSCOPY, COLON, DIAGNOSTIC Stat 12/17/2022 Bleeding per rectum History of colon polyps from Last 3 Months or Most Recently Relevant to Health Maintenance Results * (ABNORMAL) HEMOGLOBIN A1C (07/02/2024 9:58 AM CDT) HEMOGLOBIN A1C 6.3(H) <5.7 % of total Hgb [facility] Comment: For someone without known diabetes, a hemoglobin A1c value between 5.7% and 6.4% is consistent with prediabetes and should be confirmed with a follow-up test. For someone with known diabetes, a value <7% indicates that their diabetes is well controlled. A1c targets should be individualized based on duration of diabetes, age, comorbid conditions, and other considerations. This assay result is consistent with an increased risk of diabetes. Currently, no consensus exists regarding use of hemoglobin A1c for diagnosis of diabetes for children. ESTIMATED AVERAGE GLUCOSE (MG/DL) 134 mg/dL [facility] ESTIMATED AVERAGE GLUCOSE (MMOL/L) 7.4 mmol/L [facility] Comment: This test was performed on the [employer] [place] jessica c503 platform. Effective 02/09/24, a change in test platforms from the [employer] Room Worker to the Jennifer jessica c503 may have shifted HbA1c results compared to historical results. Based on laboratory validation testing conducted at [facility], the Jennifer platform relative to the [employer] platform had an average increase in HbA1c value of < or = 0.3%. This difference is within accepted variability established by the National Glycohemoglobin Standardization Program. Note that not all individuals will have had a shift in their results and direct comparisons between historical and current results for testing conducted on different platforms is not recommended. Test Performed at: [facility] [id number] [place] [address] Clarissa Joseph MD Blood 07/02/2024 9:58 AM CDT 07/03/2024 4:54 AM CDT Ana Alcantar NP CHEMISTRY ORDERABLES Final Res ult [facility] [phone] [facility] [id number] [place] [address] * ENDOSCOPY, COLON, DIAGNOSTIC (12/17/2022) us [facility] GI PROCEDURE ORDERABLES Final Result from Last 3 Months or Most Recently Relevant to Health Maintenance Insurance [facility] [id number] [facility] Care Teams Experimental Mechanic Spacecraft Relationship Specialty Start Date End Date Catalino Melgoza MD [address] [place] [address] PCP - General Family Practice 12/31/22
--- OUTSIDE RECORDS SUMMARY | 2025-06-02 14:20 | XMS_ITS | Encounter Summary ---
Author Organization [facility] Address 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 No / Unsure 12/22/2021 4:00 PM TELECOMMUNICATIONS LINE INSTALLER documented as of this encounter Plan of Treatment Not on file documented as of this encounter Visit Diagnoses Not on filedocumented in this encounter Care Teams Physician Neonatology Relationship Specialty Start Date End Date [place] [address] PCP - General Family Practice 12/31/22 documented as of this encounter
--- OUTSIDE RECORDS SUMMARY | 2025-06-02 14:20 | XMS_ITS | Encounter Summary ---
Author Organization [facility] Address [address] [place] [address] Care Team Providers Care Cane Packer Name Role Phone Catalino Melgoza MD Primary Care Provider [phone] [phone] Encounter Details Date Type Department Care Team (Late st Contact Info) Description 12/30/2021 Digital Self COVID-1 9 Monitoring [facility] ABSTRACTION Provider, Abstract NO ADDRESS ON FILE Social History Tobacco Use Types Packs/Day Years Used Date Smoking Tobacco: Never Smokeless Tobacco: Never Sex and Gender Information Value Date Recorded Sex Assigned at Not on file Legal Sex Male 3:48 PM NEW CLIENT BANKING SERVICES CLERK Gender Identity Not on file Sexual Orientation Not on file COVID-19 Exposure Response Date Recorded In the last month, have you been in contact with someone who was confirmed or suspected to have Coronavirus / COVID-19? No / Unsure 12/22/2021 4:00 PM NEW CLIENT BANKING SERVICES CLERK documented as of this encounter Plan of Treatment Not on file documented as of this encounter Visit Diagnoses Not on filedocumented in this encounter Care Teams Cane Packer Relationship Specialty Start Date End Date [place] [address] PCP - General Family Practice 12/31/22 documented as of this encounter
[2025-06-02 14:37] LABS: Troponin(5th) Baseline 11 ng/L (0-15)
[2025-06-02 14:46] LABS: Alanine Aminotransferase 25 U/L (0-41); Albumin Level 4.4 g/dL (3.5-5.2); Alkaline Phosphatase 98 U/L (40-130); Anion Gap 17.7 (5-19); Aspartate Amino Transferase 20 U/L (0-40); Blood Urea Nitrogen 11 mg/dL (8-23); Calcium 8.9 mg/dL (8.5-10.5); Carbon Dioxide 22 mmol/L (22-29); Chloride 103 mmol/L (98-107); Creatinine Clr Calc Pharmacy 86.9663; Globulin 2.6 g/dL (1.3-4.6); Glucose 134 mg/dL (65-115); Lipase 48 U/L (13-60); NT Pro B Type Natriuretic Pept 61 pg/mL (0-125); Osmolality Calculated 289 mOsm/kg (285-295); Potassium 3.7 mmol/L (3.5-5.1); Sodium 139 mmol/L (136-145); Total Protein 7.0 g/dL (6.6-8.7)
--- NOTE | 2025-06-02 16:15 | ECG_ITS ---
[facility] Test Date: 2025-06-02 Pat Name: Eliecer Ngo Department: Room: Gender: Male Contract Officer: : 1960 Requested By: Coni Villanueva Order Number: [id number] Chinyere MD: Eve Rodriguez M.D. Measurements Intervals [place] Rate: 66 P: 10 FL: 159 QRS: 50 QRSD: 77 T: 43 QT: 383 QTc: 402 Interpretive Statements SINUS RHYTHM Compared to ECG 06/02/2025 14:03:57 No significant changes Electronically Signed On 06-03-2025 15:33:02 CDT by Eve Rodriguez M.D. [email or web address]
[2025-06-02] MEDS: morphine 4 mg/mL SDV 1 mL IVP (16:25)
[2025-06-02 16:59] LABS: Troponin 5 2HR 16.60 ng/L (0-15); Troponin 5 2HR Delta 5.60 ABS# (0-10)
--- NOTE | 2025-06-02 17:40 | USCV_ITS ---
Eliecer Ngo Age: 64 Gender: M : 1960 Exam Date: 06/02/2025 21:59 Ordering Phys: Ervin Sheth MD Technologist: ASHLEY Exam Location: [facility] [place] Indication: sob, HTN, history of CAD BP: 137 / 85 HR: 62 Rhythm: Sinus Technical Quality: Adequate MEASUREMENTS (Male / Female) Normal Values 2D ECHO LV Diastolic Diameter PLAX 5.1 cm 4.2 - 5.9 / 3.9 - 5.3 cm IVS Diastolic Thickness 0.9 cm 0.6 - 1.0 / 0.6 - 0.9 cm IVS Systolic Thickness 1.5 cm LVPW Diastolic Thickness 1.3 cm 0.6 - 1.0 / 0.6 - 0.9 cm LVPW Systolic Thickness 1.9 cm LVOT Diameter 1.8 cm LV Ejection Fraction 2D Teich 62.0 % LV Ejection Fraction MOD 4C 53.1 % LV Ejection Fraction MOD 2C 57.2 % LV Ejection Fraction 2C AL 58.9 % LA Diameter 2.9 cm Aorta at Sinotubular Diameter 2.9 cm IVC Diameter 1.7 cm M-MODE LA Ao Ratio MM 0.9 AV Cusp Separation MM 2.0 cm DOPPLER AV Peak Velocity 96.0 cm/s LVOT Peak Velocity 63.0 cm/s AV Area Cont Eq vti 2.0 cm squared AV Area Cont Eq pk 1.6 cm squared MV Peak Velocity 84.0 cm/s MV Area PHT 3.4 cm squared Mitral E to A Ratio 0.9 TV Peak Velocity 220.0 cm/s TR Peak Velocity 239.0 cm/s TR Peak Gradient 22.8 mmHg TV Peak E Velocity 45.0 cm/s PV Peak Velocity 89.0 cm/s FINDINGS Left Ventricle Mild diffuse hypokinesis of the left ventricle with an ejection fraction of around 50%.Grade I/IV diastolic dysfunction (abnormal relaxation filling pattern), normal to mildly elevated filling pressures. Right Ventricle The right ventricle is normal in size and function. Right Atrium The right atrium is normal in size. Left Atrium The left atrium is normal in size. Mitral Valve No gross abnormalities noted Aortic Valve Thickened aortic valve. Tricuspid Valve Trace to mild tricuspid valve regurgitation. Pulmonic Valve Pulmonic valve not well visualized. Pericardium Normal pericardium without effusion. Aorta Normal ascending aorta dimension. IVC Inferior vena cava not visualized. CONCLUSIONS Mild diffuse hypokinesis of the left ventricle with an ejection fraction of around 50%.Grade I/IV diastolic dysfunction (abnormal relaxation filling pattern), normal to mildly elevated filling pressures. Thickened aortic valve. Trace to mild tricuspid valve regurgitation. Estimated pulmonary artery peak systolic pressure 26 mmHg There is no pericardial effusion. There are no intracardiac masses. No similar previous studies are available for comparison Dr Eve Rodriguez MD [facility] (Electronically Signed) Final Date: 03 June 2025 11:42 S
--- NOTE | 2025-06-02 17:40 | CTR_ITS ---
PROCEDURE INFORMATION: Exam: CTA Chest With Contrast Exam date and time: 06/02/2025 7:01 PM Age: 64 years old Clinical indication: Other: Hemoptysis TECHNIQUE: Imaging protocol: Computed tomographic angiography of the chest with contrast. Exam focused on the arteries. 3D rendering (Not supervised by radiologist): MIP and/or 3D reconstructed images were created by the technologist. Radiation optimization: All CT scans at this facility use at least one of these dose optimization techniques: automated exposure control; mA and/or kV adjustment per patient size (includes targeted exams where dose is matched to clinical indication); or iterative reconstruction. Contrast material: OMNIPAQUE 350; Contrast volume: 83 ml; Contrast route: INTRAVENOUS (IV); COMPARISON: CR XR chest 1V portable [id number] 06/02/2025 2:10 PM RADIATION DOSE METRICS: Total DLP (mGy-cm): 418.91 FINDINGS: Pulmonary arteries: Normal. No pulmonary emboli. Aorta: Unremarkable. No aortic aneurysm. No aortic dissection. Lungs: Unremarkable. No consolidation. No masses. Pleural spaces: Unremarkable. No pneumothorax. No pleural effusion. Heart: Unremarkable. No cardiomegaly. No pericardial effusion. Coronary arteries: There is coronary artery calcification. Lymph nodes: There is a noncalcified lymph node in the anterior mediastinum with a short axis diameter of 1.7 cm. Diaphragm: There is elevation of the right hemidiaphragm. Stomach: The stomach is moderately distended with an air-fluid level. Bones/joints: Degenerative change is identified in the spine. There is no evidence for acute fracture or malalignment. Soft tissues: Unremarkable. CT/CT angio chest PE protcl [id number] IMPRESSION: There are no acute concerning abnormalities. There is a nonspecific lymph node in the anterior mediastinum.Clinical correlation is advised.
--- NOTE | 2025-06-02 17:47 | PM.HP ---
Providers/Chief Complaint Admitting Physician: Ervin Sheth MD Chief Complaint: chest pain History of Present Illness Eliecer Ngo is a 64 year old male with a past medical history of congenital lung/heart disease? Obesity, hypertension, extensive family history of CAD who presents [facility] for chest pain and hemoptysis. Patient tells me that about a week ago he had about a week history of hemoptysis, usually sputum sized amount of hemoptysis, for the last week associate with some shortness of breath, no recent surgeries, no calf pain, no calf swelling, no history of tuberculosis exposure, no history of exposure to raw unpasteurized milk or cheese, he tells me that the hemoptysis went away on its own. 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 He was offered a lung and heart transplant, but never went through with it, it eventually did not need it? He tells me that most of his medical care was out when he was in [place], he was in and out of specialist office, he has a stack of medical records, but denies any recent illness, no recent hospitalization, recent ER visit Review of Systems Const: Denies: fever(s), chills, fatigue or malaise Card: Reports: chest pain Resp: Reports: dyspnea : Denies: flank pain Skin/Breast: Denies: rash Neuro: Denies: headache(s) Medications/Allergies Home Medications ?Medication ?Instructions ?Recorded ?Confirmed ?Last Taken ?Type hydrocodone 5 mg-acetaminophen 325 1 tab PO Q6H PRN pain #14 tabs 05/30/22 Unknown Rx mg tablet ondansetron 4 mg disintegrating 4 mg PO Q6H PRN nausea and 05/30/22 Unknown Rx tablet vomiting #14 tabs methocarbamol 750 mg tablet 750 mg PO Q6H PRN spasms #20 tabs 07/08/22 Unknown Rx naproxen 500 mg tablet (Naprosyn) 500 mg PO BID PRN pain #20 tabs 07/08/22 Unknown Rx Allergies Allergy/AdvReac Type Severity Reaction Status Date / Time No Known Allergies Allergy Verified 05/30/22 18:25 PFSH Acute PFSH: Medical History No pertinent past medical history Family History Father CAD (coronary artery disease) Brother CAD (coronary artery disease) Social History (Updated 06/02/25 @ 17:52 by Ervin Sheth MD) Smoking and tobacco/nicotine status: never used tobacco/nicotine Alcohol intake: never Substance/Drug Use: never Vitals/I&O/Wt Last Vital Signs Temp 98.0 F 06/02/25 13:59 Pulse 69 06/02/25 17:15 Resp 19 H 06/02/25 16:25 BP 137/85 06/02/25 17:15 Pulse Ox 97 06/02/25 17:15 O2 Del Method Room Air 06/02/25 17:15 Weight last 48 hrs Weight 90.718 kg Physical Exam Const: COMMON NORMALS: no acute distress and patient oriented x3 HENMT: COMMON NORMALS: normocephalic HEAD & SCALP: normocephalic Neck/C-Spine: COMMON NORMALS: no JVD Resp: COMMON NORMALS: normal respiratory effort, No retractions, No use of accessory muscles and clear to auscultation bilaterally AUSCULTATION: clear to auscultation bilaterally Cardio: COMMON NORMALS: regular rate, regular rhythm, S1 normal heart sound present and S2 normal heart sound present RATE: regular rate RHYTHM: regular rhythm HEART SOUNDS: S1 normal heart sound present and S2 normal heart sound present GI: COMMON NORMALS: Normal to inspection, nondistended, normoactive bowel sounds present, Soft to palpation and non-tender Extremity: COMMON NORMALS: no pedal edema Neuro: COMMON NORMALS: patient oriented x3, CN's II-XII intact bilaterally and moves all extremities Psych: COMMON NORMALS: mental status grossly normal Data 06/02/25 14:11 06/02/25 14:11 A&P Assessment and plan 1. Chest pain: 2. Hemoptysis: Plan: Chest pain Plan - Serial EKGs, serial troponins, telemetry monitoring - Cardiac echo - N.p.o. at midnight, cardiac stress test tomorrow - Aspirin, statin, metoprolol Hemoptysis? - CT angiogram of the chest Full code Lovenox for DVT prophylaxis PDMP PDMP Reviewed: Last Reviewed 06/02/25 17:41 by Ervin Sheth MD Attestations Medical Necessity Statement*: Patient requires hospitalization, outpatient with observation, for chest pain, hemoptysis Diagnoses Chest pain R07.9 Hemoptysis R04.2
--- NOTE | 2025-06-02 18:01 | ECG_ITS ---
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 Interpretive Statements Lung unchanged pre/post procedure; Intraprocedure shortess of breath; Symptoms resoled by discharge PROCEDURE: At the baseline, the EKG revealed sinus rhythm with a poor R wave progression. Nonspecific T wave changes. The baseline heart was 73 bpm with a blood pressue of 126/88 mm of Hg Lexiscan was infused over a period of 20 seconds. A total of 0.4 milligrams of Lexiscan was infused. The stress phase was continued for a total of 5 minutes. Heart rate at the end of the stress phase was 106 bpm with a blood pressure 115/70 mm of Hg. The EKG at the peak infusion revealed no significant changes. Sestamibi was injected 20 seconds after the Lexiscan infusion. Heart rate at the end of the recovery phase was 106 bpm with a blood pressure of 111/90 mm of Hg. CONCLUSION: 1. No significant EKG changes with the LexiScan infusion 2. No LexiScan induced chest pain or cardiac arrhythmia 3. Normal blood pressure and heart rate response 4. Sestamibi/sestamibi perfusion scan pending; see separate report. Electronically Signed On 06-05-2025 21:29:47 CDT by Eve Rodriguez M.D. [email or web address]
[2025-06-02] MEDS: pantoprazole 40 mg SDV IVP (18:46)
[2025-06-02 18:52] LABS: Cholesterol 163 mg/dL (0-200); HDL Cholesterol 42 mg/dL (60-100); Thyroid Stimulating Hormone 2.23 uIU/mL (0.27-4.20); Triglycerides 82 mg/dL (0-150)
[2025-06-02 18:55] LABS: Estmated Average Glucose 137; Hemoglobin A1C 6.4 % (4.0-6.0)
[2025-06-02 18:56] LABS: Alcohol Level < 10 mg/dL (0-10)
[2025-06-02] MEDS: iohexol 350 mg/mL 500 mL Btl (per mL) IV (19:03)
[2025-06-02 19:29] LABS: PCP Screen Urine Negative (Negative)
--- NOTE | 2025-06-02 19:41 | PC.NURSE ---
Provider updated that Mr Huber he is allergic to pork and it flagged the lovenox. He gets Hives. Provider discontinued the lovenox.
--- NOTE | 2025-06-02 19:43 | ECG_ITS ---
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 Measurements Intervals [place] Rate: 74 P: 51 NH: 161 QRS: 4 QRSD: 83 T: 8 QT: 373 QTc: 415 Interpretive Statements SINUS RHYTHM Compared to ECG 06/02/2025 16:15:46 No significant changes Electronically Signed On 06-03-2025 15:20:33 CDT by Eve Rodriguez M.D. [email or web address]
[2025-06-02] MEDS: morphine 4 mg/mL SDV 1 mL 2 MG IVP (20:08)
[2025-06-02 20:41] LABS: Troponin 5 6HR < 6.0 ng/L (0-15)
[2025-06-02 20:47] LABS: Troponin 5 6HR Delta -5.00001 ng/L (0-12)
--- NOTE | 2025-06-02 23:46 | ECG_ITS ---
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 Measurements Intervals [place] Rate: 73 P: 39 IN: 163 QRS: 2 QRSD: 82 T: 3 QT: 382 QTc: 422 Interpretive Statements SINUS RHYTHM Compared to ECG 06/02/2025 19:46:59 No significant changes Electronically Signed On 06-03-2025 15:18:47 CDT by Eve Rodriguez M.D. [email or web address]
[2025-06-03] VITALS (55 sets, daily range): BP systolic 99–122; BP diastolic 59–90; PULSE 59–106; RESP 12–26; TEMP 36.7–37.1; O2SAT 88–100; BMI 35.1
[2025-06-03 04:01] LABS: Hematocrit 47.6 % (37-53); Hemoglobin 14.50 g/dL (11.27-16.99); Mean Corpuscular HGB Conc 30.5 g/dL (30-55); Mean Corpuscular Hemoglobin 29.2 pg (27-33); Mean Corpuscular Volume 96.0 fl (82-101); Nucleated Red Blood Cells % 0 %; Platelet Count 194 10^3/cmm (157-399); Red Blood Count 4.96 10^6/uL (3.85-5.65); White Blood Count 6.86 10^3/uL (3.29-11.43)
[2025-06-03 04:32] LABS: Alanine Aminotransferase 22 U/L (0-41); Albumin Level 4.1 g/dL (3.5-5.2); Alkaline Phosphatase 84 U/L (40-130); Anion Gap 17.2 (5-19); Aspartate Amino Transferase 18 U/L (0-40); Blood Urea Nitrogen 10 mg/dL (8-23); Calcium 8.7 mg/dL (8.5-10.5); Carbon Dioxide 20 mmol/L (22-29); Chloride 104 mmol/L (98-107); Creatinine Clr Calc Pharmacy 80.4043; Globulin 2.2 g/dL (1.3-4.6); Glucose 90 mg/dL (65-115); Osmolality Calculated 283 mOsm/kg (285-295); Potassium 4.2 mmol/L (3.5-5.1); Sodium 137 mmol/L (136-145); Total Protein 6.3 g/dL (6.6-8.7)
--- NOTE | 2025-06-03 04:58 | PC.NURSE ---
Patient was having chest pain 8/10. Nitro given x2 with no relief. Patient very anxious and crying. Dr Muñoz notified and new order for one time dose xanax ordered. EKg was aken and sent to chart. EKG showed Sinus rhythm. Patient again began to have chest pain 10/10 radiating down left arm and into back. Nitro given x3 with no relief. EKG was performed and no changes. Morphine was given and Dr Fisher was notified. New medication order was placed.
[2025-06-03 05:05] LABS: Troponin T (5th) Once < 6 ng/L (0-15)
[2025-06-03] MEDS: pantoprazole 40 mg SDV IVP ×2 (05:49→17:06)
--- NOTE | 2025-06-03 07:30 | PC.NURSE ---
patient taken by wheelchair to [facility] for planned cardiac stress test.
[2025-06-03] MEDS: HYDROcodone-acetaminophen 5-325 mg Tablet 1 TAB PO ×3 (08:54→22:23)
--- NOTE | 2025-06-03 10:28 | P.CONIM_ITS ---
<Statement entered by Fab Petersen M.D - 06/05/25 14:07> Patient was evaluated and cared for in conjunction with an advanced practice practitioner.? I personally examined the patient and reviewed the chart and all pertinent data including imaging, telemetry, and laboratory results.? I discussed the patient in detail with the advanced practice practitioner.? Please see? their note for complete H&P, testing results and agreed upon plan of care for the patient. ? Patient's stress test not showing significant ischemia however his chest pain is typical and worsening for 2 days. Radiating to the jaw and the back. Given typical worsening chest pain concerning for unstable angina, we will proceed with coronary angiogram with possible PCI. Risks and benefits of procedure were discussed. He understands these and wants to proceed. GENERAL: Patient is alert, awake and oriented x3. HEART: Regular S1 and S2 LUNGS: Clear to auscultate bilaterally. CENTRAL NERVOUS SYSTEM: Grossly nonfocal. EXTREMITIES: Lower extremities without edema bilaterally. Providers/Reason For Consult 2 Consulting Physician/Specialty*: Dr Petersen, cardiology Reason for Consult*: chest pain Requesting Physician: Ervin Sheth MD Attending Physician: Ervin Sheth MD History of Present Illness History of Present Illness Eliecer Ngo is a 64 year old male with past medical history of hypertension presented to the emergency room yesterday for chest pain. 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 He was evaluated by EMS but at the scene refused further evaluation. 2 days ago he started having intermittent chest pain in the left chest radiating to the neck arms and back. It has been intermittent lasting between sometimes 3 to 4 minutes but as long as 15 to 20 minutes for each episode. Troponin series: 11-> 16-> <6. Stress test performed this morning did not show any significant reversibility, patchy areas of decreased tracer uptake. LVEF and transient ischemic dilation ratio normal. Echocardiogram revealed LVEF around 50%, trace to mild tricuspid regurgitation, no other significant valvular abnormalities. Given the unstable angina presentation with continued intermittent chest pain, will recommend coronary angiogram tomorrow. Review of Systems 2 Const: Denies: fever(s), chills, change in weight, fatigue or diaphoresis Eyes: Denies: change in vision ENMT: Denies: epistaxis Card: Denies: chest pain, palpitations, irregular heart rhythm, edema, syncope, pre-syncope, dyspnea on exertion, orthopnea or leg pain with exertion Resp: Denies: dyspnea, productive cough or wheezing GI: Denies: nausea, vomiting, hematemesis, hematochezia or melena : Denies: hematuria Musc: Denies: extremity swelling Mike/Lymph: Denies: easy bruising or easy bleeding Medications/Allergies Home Medications ?Medication ?Instructions ?Recorded ?Confirmed ?Last Taken ?Type amlodipine 5 mg tablet 5 mg PO DAILY 06/03/2506/0306/01/25 History simvastatin 20 mg tablet 20 mg PO BEDTIME 06/03/2506/01/25 20:00 History Allergies Allergy/AdvReac Type Severity Reaction Status Date / Time Pork/Porcine Containing Allergy ALGY-Hives Verified 06/02/25 18:30 Products Current Medications Generic Name Dose Route Start Last Admin Trade Name Freq PRN Reason Stop Dose Admin Hydrocodone Bitart/Acetaminophen 1 tab 06/03/25 00:17 06/03/25 08:54 Hydrocodone-Acetaminophen 5-325 Mg Tablet PO 1 tab Q4H PRN Administration MODERATE PAIN Aspirin 81 mg 06/02/25 18:01 06/03/25 08:54 Aspirin 81 Mg Ec Tablet PO 81 mg DAILY DIOGO Administration Atorvastatin Calcium 40 mg 06/02/25 21:00 06/02/25 20:11 Atorvastatin 40 Mg Tablet PO 40 mg BEDTIME DIOGO Administration Metoprolol Tartrate 12.5 mg 06/02/25 21:00 06/03/25 08:54 Metoprolol Tartrate 25 Mg Tablet PO 12.5 mg BID@0900,2100 DIOGO Administration Morphine Sulfate 2 mg 06/02/25 18:01 06/02/25 20:08 Morphine 4 Mg/Ml Sdv 1 Ml IVP 2 mg Q4H PRN Administration SEVERE PAIN Nitroglycerin 0.4 mg 06/02/25 18:01 06/02/25 23:53 Nitroglycerin 0.4 Mg Sublingual Tablet SUBLINGUAL 0.4 mg Q5M PRN Administration CHEST PAIN Pantoprazole Sodium 40 mg 06/02/25 18:01 06/03/25 05:49 Pantoprazole 40 Mg Sdv IVP 40 mg Q12H DIOGO Administration PFSH Acute 2 PFSH: Medical History No pertinent past medical history Family History Father CAD (coronary artery disease) Brother CAD (coronary artery disease) Social History Smoking and tobacco/nicotine status: never used tobacco/nicotine Alcohol intake: never Substance/Drug Use: never Vitals/I&O/Wt Last Vital Signs Temp 98.0 F 06/03/25 07:39 Pulse 106 H 06/03/25 08:05 Resp 14 06/03/25 07:39 BP 111/90 06/03/25 08:05 Pulse Ox 100 06/03/25 07:39 O2 Del Method Nasal Cannula 06/03/25 07:39 O2 Flow Rate 2 06/03/25 04:00 06/02/25 06/03/25 06/03/25 22:59 06:59 14:59 Intake Total 600 / 600 360 / 360 Output Total 325 / 325 Balance 275 / 275 360 / 360 Weight last 48 hrs Weight 211 lb 1 oz Weight 211 lb Weight 200 lb Physical Exam 2 Const: COMMON NORMALS: no acute distress and patient oriented x3 GENERAL APPEARANCE: cooperative and comfortable ORIENTATION/CONSCIOUSNESS: Yes awake, Yes oriented to person, Yes oriented to place and Yes oriented to time Chest: COMMONS NORMALS: normal inspection of the chest and normal palpation of entire chest wall CHEST: Yes Symmetrical chest wall rise Resp: COMMON NORMALS: normal respiratory effort, No retractions, No use of accessory muscles and clear to auscultation bilaterally EFFORT & INSPECTION: Yes symmetric chest movement AUSCULTATION: clear to auscultation bilaterally Cardio: COMMON NORMALS: regular rate, regular rhythm, S1 normal heart sound present, S2 normal heart sound present, No gallops present (Cardio), No clicks present (Cardio), No murmurs present (Cardio) and No rub (Cardio) RATE: r egular rate RHYTHM: regular rhythm HEART SOUNDS: S1 normal heart sound present and S2 normal heart sound present PERIPHERAL PULSES: radial pulses present Extremity: COMMON NORMALS: no pedal edema Neuro: COMMON NORMALS: patient oriented x3 and moves all extremities S ENSORIUM/ORIENTATION: Yes oriented to person, Yes oriented to place and Yes oriented to time Data 06/03/25 03:40 06/03/25 03:40 A&P Assessment and plan 1. Chest pain: 2. Unstable angina: Plan: Plan for coronary angiography tomorrow. He should be n.p.o. after midnight tonight. Continue aspirin, metoprolol, atorvastatin. PDMP PDMP Reviewed: Not Reviewed Coding Level of Care Code Acute Code for [facility] Fwd Diagnoses Chest pain R07.9 Unstable angina I20.0
--- NOTE | 2025-06-03 11:58 | P.PN_ITS ---
Subjective 2 Subjective: Patient was seen this morning, currently alert oriented x 3, following all commands, denies any fevers, no chills, no cough patient reports persistent chest pain Vitals/I&O/Wt Last Vital Signs Temp 98.0 F 06/03/25 07:39 Pulse 106 H 06/03/25 08:05 Resp 14 06/03/25 07:39 BP 111/90 06/03/25 08:05 Pulse Ox 100 06/03/25 07:39 O2 Del Method Nasal Cannula 06/03/25 07:39 O2 Flow Rate 2 06/03/25 04:00 06/02/25 06/03/25 06/03/25 22:59 06:59 14:59 Intake Total 600 / 600 360 / 360 Output Total 325 / 325 Balance 275 / 275 360 / 360 Weight last 48 hrs Weight 95.736 kg Weight 95.708 kg Weight 90.718 kg Physical Exam 2 Const: COMMON NORMALS: no acute distress and patient oriented x3 Resp: COMMON NORMALS: normal respiratory effort, No retractions, No use of accessory muscles and clear to auscultation bilaterally AUSCULTATION: clear to auscultation bilaterally Cardio: COMMON NORMALS: regular rate, regular rhythm, S1 normal heart sound present and S2 normal heart sound present RATE: regular rate RHYTHM: r egular rhythm HEART SOUNDS: S1 normal heart sound present and S2 normal heart sound present GI: COMMON NORMALS: Normal to inspection, nondistended, normoactive bowel sounds present and non-tender Extremity: COMMON NORMALS: no pedal edema Neuro: COMMON NORMALS: patient oriented x3 Psych: COMMON NORMALS: mental status grossly normal Data 06/03/25 03:40 06/03/25 03:40 A&P Assessment and plan 1. Chest pain: 2. Hemoptysis: Plan: Chest pain Plan - Serial EKGs, serial troponins, telemetry monitoring - Cardiac echo CONCLUSIONS Mild diffuse hypokinesis of the left ventricle with an ejection fraction of around 50%.Grade I/IV diastolic dysfunction (abnormal relaxation filling pattern), normal to mildly elevated filling pressures. Thickened aortic valve. Trace to mild tricuspid valve regurgitation. Estimated pulmonary artery peak systolic pressure 26 mmHg There is no pericardial effusion. There are no intracardiac masses. No similar previous studies are available for comparison - Undergoing cardiac stress test today IMPRESSIONS 1. Myocardial perfusion imaging revealing patchy areas of slightly decreased persistent tracer uptake in the anterior wall, inferior wall and apical regions with no significant reversibility suggesting myocardial scarring versus attenuation artifact. 2. Normal LV ejection fraction of 60%. 3. LV wall motion analysis revealing no gross wall motion abnormalities. 4. Normal LV volume No significant coronary ischemia, based on the above findings - Aspirin, statin, metoprolol Hemoptysis? - CT angiogram of the chest CT/CT angio chest PE protcl [id number] IMPRESSION: There are no acute concerning abnormalities. There is a nonspecific lymph node in the anterior mediastinum.Clinical correlation is advised. Full code Lovenox for DVT prophylaxis Patient requires hospitalization for persistent chest pain, requiring cardiology consultation PDMP PDMP Reviewed: Last Reviewed 06/02/25 17:41 by Ervin Sheth MD Attestations 2 Medical Necessity Statement*: Patient requires hospitalization for chest pain, NSTEMI Diagnoses Chest pain R07.9 Hemoptysis R04.2
--- NOTE | 2025-06-03 18:01 | NMCV_ITS ---
NM stephon perf SPECT r/s* [id number] Eliecer Ngo Age: 64 Gender: M : 1960 Exam Date: 06/03/2025 07:21 Ordering Phys: Ervin Sheth MD Technologist: EDGAR Parikh Exam Location: [facility] Indications: cp STRESS TEST Please see separate stress test report in [facility] for full findings IMAGE PROTOCOL Rest/Stress 1 Lexiscan Day Radiopharmaceutical Dose (mCi) Administration Site Administered by Rest: Tc-99m 10.7 IV Stefany Alberto, PSYCHOLOGY TECHNICIAN Sestamibi Stress:Tc-99m 32.6 IV Stefany Pachecogle, PSYCHOLOGY TECHNICIAN Sestamibi Rest: 03-Jun-2025 60 Discovery 630 Stress: 03-Jun-2025 30 Discovery 630 0.4mg Lexiscan. Images obtained in supine and prone position. SPECT RESULTS Technical Quality: Good Raw Data Analysis: Normal Image Corrections: No attenuation or motion correction applied Summed Stress Score: 1 Summed Rest Score: 0 Summed Difference Score: 1 PERFUSION FINDINGS Patchy areas of slightly decreased tracer uptake in the mid anterior, mid inferior and apical regions. No significant reversibility was noted in these regions. FUNCTIONAL RESULTS (calculated via Gated SPECT) Stress Image LV EF (%): 60 Stress EDV (mL):104 TID: 0.92 Stress ESV (mL):42 FUNCTIONAL FINDINGS: Segmental wall motion analysis revealing no gross wall motion abnormalities IMPRESSIONS 1. Myocardial perfusion imaging revealing patchy areas of slightly decreased persistent tracer uptake in the anterior wall, inferior wall and apical regions with no significant reversibility suggesting myocardial scarring versus attenuation artifact. 2. Normal LV ejection fraction of 60%. 3. LV wall motion analysis revealing no gross wall motion abnormalities. 4. Normal LV volume No significant coronary ischemia, based on the above findings Dr Eve Rodriguez MD [facility] (Electronically Signed) Final Date: 03 June 2025 10:58 S
[2025-06-04] VITALS (11 sets, daily range): BP systolic 82–144; BP diastolic 43–90; PULSE 67–86; RESP 18–28; TEMP 37; O2SAT 94–98
[2025-06-04 04:17] LABS: Hematocrit 45.0 % (37-53); Hemoglobin 14.90 g/dL (11.27-16.99); Mean Corpuscular HGB Conc 33.1 g/dL (30-55); Mean Corpuscular Hemoglobin 29.6 pg (27-33); Mean Corpuscular Volume 89.3 fl (82-101); Nucleated Red Blood Cells % 0 %; Platelet Count 193 10^3/cmm (157-399); Red Blood Count 5.04 10^6/uL (3.85-5.65); White Blood Count 6.75 10^3/uL (3.29-11.43)
[2025-06-04 04:38] LABS: Alanine Aminotransferase 23 U/L (0-41); Albumin Level 4.1 g/dL (3.5-5.2); Alkaline Phosphatase 105 U/L (40-130); Anion Gap 16.7 (5-19); Aspartate Amino Transferase 18 U/L (0-40); Blood Urea Nitrogen 12 mg/dL (8-23); Calcium 8.7 mg/dL (8.5-10.5); Carbon Dioxide 26 mmol/L (22-29); Chloride 100 mmol/L (98-107); Creatinine Clr Calc Pharmacy 80.4162; Globulin 2.5 g/dL (1.3-4.6); Glucose 109 mg/dL (65-115); Osmolality Calculated 288 mOsm/kg (285-295); Potassium 3.7 mmol/L (3.5-5.1); Sodium 139 mmol/L (136-145); Total Protein 6.6 g/dL (6.6-8.7)
[2025-06-04] MEDS: pantoprazole 40 mg SDV IVP ×2 (05:29→17:25)
--- NOTE | 2025-06-04 07:03 | W.PM.OPSUD ---
Surgery/Procedure H&P Update DATE OF PROCEDURE: June 04, 2025 DATE H&P PERFORMED: 06/04/25 H&P UPDATE INFORMATION: I have reviewed H&P completed within last 30 days, I have examined patient prior to procedure and Changes to prior documentation as noted here CHANGES TO PREVIOUS DOCUMENTATION: Patient continues having worsening chest pain radiating to the jaw and the back. Started 2 days back. Activity making it worse. Concern for unstable angina PREOP DIAGNOSIS: Worsening angina/ unstable angina PRIMARY INDICATION FOR PROCEDURE: Worsening angina/ unstable angina PLANNED PROCEDURE: Left heart cath with possible percutaneous coronary intervention PATIENT REASSESSED PRIOR TO SEDATION, WITH NO CHANGE NOTED: Yes PHYSICAL EXAM: alert, oriented x 3, clear to auscultation bilaterally and regular rate & rhythm AIRWAY EVAL/ANESTHESIA PLAN: normal airway, ASA III, Local Anesthesia, Risks, benefits & alternatives of sedation and/or procedure discussed and Patient agrees to continue as planned ADDITIONAL INFORMATION: Moderate sedation
--- NOTE | 2025-06-04 07:51 | PM.PROC ---
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 Status post successful revascularization with 1 stent Aspirin and plavix for atleast 1 year High intensity statin therapy Aggrastat and angiomax for 2 hours Performing Provider: Fab Petersen Estimated blood loss (mL): 10 Complications: None Condition: stable Disposition: floor Coding Level of Care Code Acute Code for Tarun Saez
[2025-06-04] MEDS: bivalirudin 250 MG in sodium chloride 0.9% 500 ML 333.87 MG IV (08:00)
--- NOTE | 2025-06-04 10:04 | PM.PN ---
Subjective Subjective: Patient had PDA PCI with 1 stent. Had some discomfort afterwards and resolved with nitro. Vitals/I&O/Wt Last Vital Signs Temp 98.6 F 06/04/25 04:00 Pulse 84 06/04/25 08:00 Resp 18 06/04/25 08:00 BP 144/90 06/04/25 08:00 Pulse Ox 96 06/04/25 08:00 O2 Del Method Nasal Cannula 06/04/25 04:00 O2 Flow Rate 2 06/03/25 04:00 06/03/25 06/04/25 06/04/25 22:59 06:59 14:59 Intake Total 440 / 1040 Output Total 325 / 325 Balance 115 / 715 Weight last 48 hrs Weight 210 lb 4.8 oz Weight 211 lb 1 oz Weight 211 lb Weight 200 lb Physical Exam Narrative: GENERAL: Patient is alert, awake and oriented x3. [] NECK: No jugular vein distension. [] HEENT: No cyanosis. No icterus. No pallor. [] HEART: Regular S1 and S2. No murmur, rub or gallop. [] LUNGS: Clear to auscultate bilaterally. [] CENTRAL NERVOUS SYSTEM: Grossly nonfocal. [] EXTREMITIES: Lower extremities with no edema bilaterally. Data 06/05/25 02:34 06/05/25 02:34 A&P Assessment and plan 1. Chest pain: 2. Unstable angina: Plan: Patient had PCI of PDA with 1 stent. Had some chest discomfort afterwards which resolved with 1 nitro. Will start Imdur. Dual antiplatelet therapy with aspirin and Plavix. Will observe patient overnight and if stable tomorrow can be discharged home. Thank you for involving us with care of this patient. Will continue to follow. Please call with questions. PDMP PDMP Reviewed: Not Reviewed Attestations Medical Necessity Statement*: Care expected to cross 2 midnights. Coding Level of Care Code Acute Code for [employer] Diagnoses Chest pain R07.9 Unstable angina I20.0
--- NOTE | 2025-06-04 11:07 | PC.NURSE ---
patient's bag of bivalrudin stopped at 1000, 2 hours after research laboratory specialist per instructions from Dr Petersen.
--- NOTE | 2025-06-04 12:28 | PC.CHAP ---
Pastoral Care Encounter/Spiritual Assessment Type of Contact [] Declined credit manager visit [] Patient/Family/Request visit [] Outpatient visit [] Follow-up visit [] Physician referral [] Code/Alert [x] Routine visit [] Staff referral [] Actively dying [x] Patient sleeping [] Family support [] [] Out of room [] Palliative care [] [] Receiving care in room [] Pre-surgical visit [] Trauma [] Long length of stay [] ICU visit [] Other: Relational/Emotional Strength [] Patient feels connected with others/family/visitors/staff [] Distress [] Loneliness/isolation [] Abandonment Spirituality of Patient [] Person of Rehana [] Attends Taoist of their Rehana [] Believes in Prayer [] Reads Bible or Shinto materials [] There are Spiritual issues to be addressed Systems Eng Interventions [] Prayer [] Active listening [] Non-anxious presence [] Spiritual/emotional support [] Crisis/trauma care [] Spiritual counseling [] Bereavement support [] Provided bereavement packet [] Provided Bible/devotional materials [] Provided toy/stuffed animal, coloring book to patient or family member [] Provided Communion [] Anointing/[place] [] Salvation [] Completed spiritual assessment [] Other: Impact on Illness or Injury [] Angry [] Fearful [] Anxious [] Often cries [] Exhaustion [] Unable to work [] Unable to attend yazdanism [] Unable to walk/stand [] Unable to read [] Unable to drive [] Unable to eat/drink [] Unable to sleep [] Unable to be with family [] Patient intubated [] Other: Summary Time spent with patient
--- NOTE | 2025-06-04 13:37 | ECG_ITS ---
[facility] Date: 2025-[facility]04 Pat Name: Eliecer Ngo Department: Room: 105 Gender: Male Color Coater: : 1960 Requested By: Fab Petersen Order Number: [id number] Chinyere MD: Eve Rodrgiuez M.D. Measurements Intervals [place] Rate: 77 P: 49 [place]: 169 QRS: -8 QRSD: 80 T: 2 QT: 341 QTc: 388 Interpretive Statements SINUS RHYTHM Compared to ECG 06/02/2025 23:48:58 No significant changes Electronically Signed On 06-07-2025 10:11:14 CDT by Eve Rodriguez M.D. [id number]
--- NOTE | 2025-06-04 13:47 | P.PN_ITS ---
Subjective 2 Subjective: Patient was seen this morning, currently alert oriented x 3, following all commands, no family numbers at bedside, no chest pain, he is status post cardiac stent placement Vitals/I&O/Wt Last Vital Signs Temp 98.6 F 06/04/25 04:00 Pulse 86 06/04/25 10:01 Resp 28 H 06/04/25 10:01 BP 117/86 06/04/25 10:01 Pulse Ox 96 06/04/25 10:01 O2 Del Method Nasal Cannula 06/04/25 04:00 O2 Flow Rate 2 06/03/25 04:00 06/03/25 06/04/25 06/04/25 22:59 06:59 14:59 Intake Total 440 / 1040 860 / 860 Output Total 325 / 325 Balance 115 / 715 860 / 860 Weight last 48 hrs Weight 95.39 kg Weight 95.736 kg Weight 95.708 kg Weight 90.718 kg Physical Exam 2 Const: COMMON NORMALS: no acute distress and patient oriented x3 Resp: COMMON NORMALS: normal respiratory effort, No retractions, No use of accessory muscles and clear to auscultation bilaterally AUSCULTATION: clear to auscultation bilaterally Cardio: COMMON NORMALS: regular rate, regular rhythm, S1 normal heart sound present and S2 normal heart sound present RATE: regular rate RHYTHM: r egular rhythm HEART SOUNDS: S1 normal heart sound present and S2 normal heart sound present GI: COMMON NORMALS: Normal to inspection, nondistended, normoactive bowel sounds present and non-tender Extremity: COMMON NORMALS: no pedal edema Neuro: COMMON NORMALS: patient oriented x3 Psych: COMMON NORMALS: mental status grossly normal Data 06/04/25 02:14 06/04/25 02:14 A&P Assessment and plan 1. Chest pain: 2. Hemoptysis: Plan: Chest pain Plan - Serial EKGs, serial troponins, telemetry monitoring - Cardiac echo CONCLUSIONS Mild diffuse hypokinesis of the left ventricle with an ejection fraction of around 50%.Grade I/IV diastolic dysfunction (abnormal relaxation filling pattern), normal to mildly elevated filling pressures. Thickened aortic valve. Trace to mild tricuspid valve regurgitation. Estimated pulmonary artery peak systolic pressure 26 mmHg There is no pericardial effusion. There are no intracardiac masses. No similar previous studies are available for comparison - Undergoing cardiac stress test today IMPRESSIONS 1. Myocardial perfusion imaging revealing patchy areas of slightly decreased persistent tracer uptake in the anterior wall, inferior wall and apical regions with no significant reversibility suggesting myocardial scarring versus attenuation artifact. 2. Normal LV ejection fraction of 60%. 3. LV wall motion analysis revealing no gross wall motion abnormalities. 4. Normal LV volume No significant coronary ischemia, based on the above findings - Aspirin, statin, metoprolol ? Status post coronary angiogram, stenting to ostial PDA Hemoptysis? Resolved - CT angiogram of the chest CT/CT angio chest PE protcl [id number] IMPRESSION: There are no acute concerning abnormalities. There is a nonspecific lymph node in the anterior mediastinum.Clinical correlation is advised. Full code Has a allergy to Lovenox and heparin, allergy to pork products SCDs for now Status post cardiac stent placement, will monitor PDMP PDMP Reviewed: Last Reviewed 06/02/25 17:41 by Ervin Sheth MD Attestations 2 Medical Necessity Statement*: Patient requires hospitalization for cardiac stent placement Diagnoses Chest pain R07.9 Hemoptysis R04.2
[2025-06-05] VITALS (17 sets, daily range): BP systolic 82–106; BP diastolic 55–61; PULSE 65–91; RESP 11–29; TEMP 36.6; O2SAT 92–96
[2025-06-05 02:55] LABS: Hematocrit 40.9 % (37-53); Hemoglobin 13.50 g/dL (11.27-16.99); Mean Corpuscular HGB Conc 33.0 g/dL (30-55); Mean Corpuscular Hemoglobin 29.5 pg (27-33); Mean Corpuscular Volume 89.3 fl (82-101); Nucleated Red Blood Cells % 0 %; Platelet Count 169 10^3/cmm (157-399); Red Blood Count 4.58 10^6/uL (3.85-5.65); White Blood Count 8.54 10^3/uL (3.29-11.43)
[2025-06-05 03:17] LABS: Alanine Aminotransferase 18 U/L (0-41); Albumin Level 3.7 g/dL (3.5-5.2); Alkaline Phosphatase 84 U/L (40-130); Anion Gap 14.8 (5-19); Aspartate Amino Transferase 17 U/L (0-40); Blood Urea Nitrogen 14 mg/dL (8-23); Calcium 8.5 mg/dL (8.5-10.5); Carbon Dioxide 26 mmol/L (22-29); Chloride 103 mmol/L (98-107); Creatinine Clr Calc Pharmacy 80.2682; Globulin 2.3 g/dL (1.3-4.6); Glucose 104 mg/dL (65-115); Osmolality Calculated 291 mOsm/kg (285-295); Potassium 3.8 mmol/L (3.5-5.1); Sodium 140 mmol/L (136-145); Total Protein 6.0 g/dL (6.6-8.7)
[2025-06-05] MEDS: pantoprazole 40 mg SDV IVP (05:09)
--- NOTE | 2025-06-05 09:37 | P.PN_ITS ---
Subjective 2 Subjective: Patient doing well. No more chest pain. Vitals/I&O/Wt Last Vital Signs Temp 98.6 F 06/04/25 04:00 Pulse 88 06/05/25 09:00 Resp 29 H 06/05/25 09:00 BP 106/61 06/05/25 09:00 Pulse Ox 93 06/05/25 09:00 O2 Del Method Nasal Cannula 06/04/25 04:00 O2 Flow Rate 2 06/03/25 04:00 06/04/25 06/05/25 06/05/25 22:59 06:59 14:59 Intake Total 720 / 1940 1000 / 2940 240 / 240 Output Total 325 / 325 Balance 395 / 1615 1000 / 2615 240 / 240 Weight last 48 hrs Weight 208 lb 5 oz Weight 210 lb 4.8 oz Physical Exam 2 Narrative: GENERAL: Patient is alert, awake and oriented x3. [] NECK: No jugular vein distension. [] HEENT: No cyanosis. No icterus. No pallor. [] HEART: Regular S1 and S2. No murmur, rub or gallop. [] LUNGS: Clear to auscultate bilaterally. [] CENTRAL NERVOUS SYSTEM: Grossly nonfocal. [] EXTREMITIES: Lower extremities with no edema bilaterally. Data 06/05/25 02:34 06/05/25 02:34 A&P Assessment and plan 1. Chest pain: 2. Unstable angina: Plan: Patient doing well. Stable to be discharged from cardiac standpoint on aspirin and Plavix, high intensity statin therapy and imdur Thank you for involving us with care of this patient. Please call with questions. PDMP PDMP Reviewed: Not Reviewed Attestations 2 Medical Necessity Statement*: Care expected to cross 2 midnights. Coding Level of Care Code Acute Code for [facility] Diagnoses Chest pain R07.9 Unstable angina I20.0
--- NOTE | 2025-06-05 10:32 | PM.DCS ---
Discharge Providers Date of Admission: 06/04/25 13:44 Date of Discharge: June 05, 2025 Attending Provider at Admission: Ervin Sheth MD Attending Provider at Discharge: Ervin Sheth MD Diagnoses at Discharge Discharge Diagnosis 1. Chest pain: 2. Unstable angina: Reason for Visit Reason for Visit: chest pain Hospital Course Hospital Course Eliecer Ngo is a 64 year old male with a past medical history of congenital lung/heart disease? Obesity, hypertension, extensive family history of CAD who presents [facility] for chest pain and hemoptysis. Patient tells me that about a week ago he had about a week history of hemoptysis, usually sputum sized amount of hemoptysis, for the last week associate with some shortness of breath, no recent surgeries, no calf pain, no calf swelling, no history of tuberculosis exposure, no history of exposure to raw unpasteurized milk or cheese, he tells me that the hemoptysis went away on its own. 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 He was offered a lung and heart transplant, but never went through with it, it eventually did not need it? He tells me that most of his medical care was out when he was in [place], he was in and out of specialist office, he has a stack of medical records, but denies any recent illness, no recent hospitalization, Patient was admitted to [facility] for chest pain, echo CONCLUSIONS Mild diffuse hypokinesis of the left ventricle with an ejection fraction of around 50%.Grade I/IV diastolic dysfunction (abnormal relaxation filling pattern), normal to mildly elevated filling pressures. Thickened aortic valve. Trace to mild tricuspid valve regurgitation. Estimated pulmonary artery peak systolic pressure 26 mmHg There is no pericardial effusion. There are no intracardiac masses. No similar previous studies are available for comparison IMPRESSIONS 1. Myocardial perfusion imaging revealing patchy areas of slightly decreased persistent tracer uptake in the anterior wall, inferior wall and apical regions with no significant reversibility suggesting myocardial scarring versus attenuation artifact. 2. Normal LV ejection fraction of 60%. 3. LV wall motion analysis revealing no gross wall motion abnormalities. 4. Normal LV volume No significant coronary ischemia, based on the above findings - Patient was seen by status post coronary angiogram found to have ostial PDA had 80 to 90% eccentric hazy stenosis, status post stenting - Was managed on aspirin, statin, Plavix - No recurrent chest pain during hospitalization - Ambulating without significant symptomatology - Will be discharged on aspirin, Plavix, discussed importance of compliance, risk of stent closure with noncompliance, morbidity and mortality associated - Discharged on beta-jacquelyn, statin - Nitro as needed for chest pain - Follow-up with cardiology - If any recurrent chest pain immediately go to the emergency room or call [phone] - 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, 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 into 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 work in a graded fashion For his complaints of hemoptysis, week ago - CT angiogram negative for pulmonary embolism -No TB risk factors, history of exposure, or history of tuberculosis - No recurrent episodes of hemoptysis during his hospitalization - He will be discharged on aspirin, Plavix, he was monitored as inpatient no issues or hemoptysis during his hospitalization - Discussed with patient if he does develop a hemoptysis anemia, to [facility] or call 9 11 Patient did have a lymph node in the anterior mediastinum, measuring 1.7 cm, will have him follow-up with pulmonary as outpatient Physical Exam Const: COMMON NORMALS: no acute distress and patient oriented x3 Resp: COMMON NORMALS: normal respiratory effort, No retractions, No use of accessory muscles and clear to auscultation bilaterally AUSCULTATION: clear to auscultation bilaterally Cardio: COMMON NORMALS: regular rate, regular rhythm, S1 normal heart sound present and S2 normal heart sound present RATE: regular rate RHYTHM: regular rhythm HEART SOUNDS: S1 normal heart sound present and S2 normal heart sound present GI: COMMON NORMALS: Normal to inspection, nondistended, normoactive bowel sounds present and non-tender Extremity: COMMON NORMALS: no pedal edema Neuro: COMMON NORMALS: patient oriented x3 Psych: COMMON NORMALS: mental status grossly normal Discharge Data Studies Completed and Pending Completed Studies During Hospitalization Category Date Time Status CT angio chest PE protcl [id number] Stat Cat Scan 06/02/25 17:40 Completed Sestamibi Stress Test Request Routine Exams 06/02/25 18:01 Draft XR chest 1V portable [id number] Stat Exams 06/02/25 14:02 Completed NM stephon perf SPECT r/s* [id number] Routine Nuc Med 06/03/25 18:01 Completed CV. echo complete* [id number] Stat Ultrasound 06/02/25 17:40 Completed Pending at discharge Category Date Time Status CASE MANAGER SPECIALIST request for service Routine Exams 06/04/25 06:34 Ordered Radiology Impressions Chest X-Ray 06/02/25 14:02 IMPRESSION: 1. No acute cardiopulmonary finding. Chest CTA 06/02/25 17:40 IMPRESSION: There are no acute concerning abnormalities. There is a nonspecific lymph node in the anterior mediastinum.Clinical correlation is advised. Laboratory Results WBC 8.54 10^3/uL (3.29-11.43) 06/05/25 02:34 RBC 4.58 10^6/uL (3.85-5.65) 06/05/25 02:34 Hgb 13.50 g/dL (11.27-16.99) 06/05/25 02:34 Hct 40.9 % (37-53) 06/05/25 02:34 MCV 89.3 fl (82-101) 06/05/25 02:34 MCH 29.5 pg (27-33) 06/05/25 02:34 MCHC 33.0 g/dL (30-55) 06/05/25 02:34 RDW 12.7 % (12.1-15.1) 06/05/25 02:34 Plt Count 169 10^3/cmm (157-399) 06/05/25 02:34 MPV 9.8 fL (7.4-10.4) 06/05/25 02:34 Neut % (Auto) 68.3 % 06/05/25 02:34 Lymph % (Auto) 21.4 % 06/05/25 02:34 Sac % (Auto) 8.3 % 06/05/25 02:34 Eos % (Auto) 1.1 % 06/05/25 02:34 Baso % (Auto) 0.5 % 06/05/25 02:34 Neut # (Auto) 5.84 10^3/uL (1.8-7.7) 06/05/25 02:34 Lymph # (Auto) 1.8 10^3/uL (0.8-4.8) 06/05/25 02:34 Sac # (Auto) 0.7 10^3/uL (0.2-0.9) 06/05/25 02:34 Eos # (Auto) 0.1 10^3/uL (0.0-0.8) 06/05/25 02:34 Baso # (Auto) 0.0 10^3/uL (0.0-0.1) 06/05/25 02:34 Nucleated RBC % (auto) 0 % 06/05/25 02:34 Nucleated RBCs # 0.0 /100WBC 06/05/25 02:34 ESR 10 mm/hr (0-10) 06/02/25 14:11 D-Dimer <= 0.27 ug/mLFEU (0-0.59) 06/02/25 14:11 Sodium 140 mmol/L (136-145) 06/05/25 02:34 Potassium 3.8 mmol/L (3.5-5.1) 06/05/25 02:34 Chloride 103 mmol/L (98-107) 06/05/25 02:34 Carbon Dioxide 26 mmol/L (22-29) 06/05/25 02:34 Anion Gap 14.8 (5-19) 06/05/25 02:34 BUN 14 mg/dL (8-23) 06/05/25 02:34 Creatinine 1.0 mg/dL (0.7-1.2) 06/05/25 02:34 GFR Calculation 75.5 mL/min (90-130) L 06/05/25 02:34 Glucose 104 mg/dL (65-115) 06/05/25 02:34 Estimat Average Glucose 137 06/02/25 14:11 Hemoglobin A1c 6.4 % (4.0-6.0) H 06/02/25 14:11 Calculated Osmolality 291 mOsm/kg (285-295) 06/05/25 02:34 Calcium 8.5 mg/dL (8.5-10.5) 06/05/25 02:34 Total Bilirubin 0.5 mg/dL (0.15-1.2) 06/05/25 02:34 AST 17 U/L (0-40) 06/05/25 02:34 ALT 18 U/L (0-41) 06/05/25 02:34 Alkaline Phosphatase 84 U/L (40-130) 06/05/25 02:34 Troponin T 5th Gen ng/L < 6 ng/L (0-15) 06/03/25 03:40 Troponin T Baseline 11 ng/L (0-15) 06/02/25 14:11 Troponin T 120 Minute 16.60 ng/L (0-15) H 06/02/25 16:06 Delta Troponin T 5.60 ABS# (0-10) 06/02/25 16:06 Troponin T Hi Sens 6Hr < 6.0 ng/L (0-15) 06/02/25 20:09 Troponin T Hi Sens 6Hr Delta -5.57868 ng/L (0-12) L 06/02/25 20:09 C-Reactive Protein 3.0 mg/L (0.0-4.9) 06/02/25 14:11 NT-Pro-B Natriuret Pep 61 pg/mL (0-125) 06/02/25 14:11 Total Protein 6.0 g/dL (6.6-8.7) L 06/05/25 02:34 Albumin 3.7 g/dL (3.5-5.2) 06/05/25 02:34 Globulin 2.3 g/dL (1.3-4.6) 06/05/25 02:34 Triglycerides 82 mg/dL (0-150) 06/02/25 14:11 Cholesterol 163 mg/dL (0-200) 06/02/25 14:11 LDL Cholesterol, Calc 105 mg/dL (50-129) 06/02/25 14:11 HDL Cholesterol 42 mg/dL (60-100) L 06/02/25 14:11 LDL/HDL Ratio 2.50 RATIO (0.00-3.22) 06/02/25 14:11 Cholesterol/HDL Ratio 3.88 mg/dL (1.0-5.00) 06/02/25 14:11 Lipase 48 U/L (13-60) 06/02/25 14:11 TSH 2.23 uIU/mL (0.27-4.20) 06/02/25 14:11 Urine Opiates Screen Positive ng/mL (Negative) H 06/02/25 18:50 Ur Barbiturates Screen Negative ng/mL (Negative) 06/02/25 18:50 Ur Phencyclidine Scrn Negative ng/mL (Negative) 06/02/25 18:50 Ur Amphetamines Screen Negative ng/mL (Negative) 06/02/25 18:50 U Benzodiazepines Scrn Negative ng/mL (Negative) 06/02/25 18:50 Urine Cocaine Screen Negative ng/mL (Negative) 06/02/25 18:50 U Marijuana (THC) Screen Negative ng/mL (Negative) 06/02/25 18:50 Ethyl Alcohol < 10 mg/dL (0-10) 06/02/25 14:11 Vitals Last Vital Signs Temp 98.6 F 06/04/25 04:00 Pulse 88 06/05/25 09:00 Resp 29 H 06/05/25 09:00 BP 106/61 06/05/25 09:00 Pulse Ox 93 06/05/25 09:00 O2 Del Method Nasal Cannula 06/04/25 04:00 O2 Flow Rate 2 06/03/25 04:00 Discharge Plan Discharge Patient Disposition: Home Condition: Stable Prescriptions: New atorvastatin 40 mg Tablet 40 mg PO BEDTIME 30 Days Qty: 30 0RF isosorbide mononitrate 30 mg Tablet Extended Release 24 Hr 15 mg PO DAILY 30 Days Qty: 30 0RF clopidogrel 75 mg Tablet 75 mg PO DAILY 30 Days Qty: 30 0RF aspirin 81 mg Tablet,Delayed Release (Dr/Ec) 81 mg PO DAILY 30 Days Qty: 30 0RF nitroglycerin 0.4 mg Tablet, Sublingual 0.4 mg sublingual Q5M PRN (Reason: Chest Pain) 30 Days Qty: 30 0RF metoprolol tartrate 25 mg Tablet 12.5 mg PO BID@0900,2100 30 Days Qty: 30 0RF Discontinued amlodipine 5 mg tablet 5 mg PO DAILY simvastatin 20 mg 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 Brianna Hamm, ARIADNA [Nurse Practitioner, Cardiology] - 4-7 days Referral Note: We have notified your physician's clinic of the need for a follow-up appointment to be scheduled. If you have not heard from them within the next 2 business days, please call them directly. Juan Carlos Gaitan MD [Physician, Interventional Pulmonology] - 1 week Referral Note: anterior mediastinal lymph node Discharge Diet: Cardiac Discharge Activity: Resume usual activity Patient Instructions: Coronary Angioplasty (DC), Noncardiac Chest Pain (DC), Opioid Safety, Patient Portal & Marilyn Instructions Activity Restrictions/Additional Instructions: - Please follow-up with cardiology - Please continue aspirin, statin, Plavix - If any recurrent chest pain go to the emergency room - For your lymph node please follow-up with pulmonary Discharge Attestations Time Spent in Discharge Care*: greater than 30 min Quality Metrics Clinical Quality Measures [ No reported AMI, CVA or VTE this stay] Coding Level of Care Code Acute Code for [facility] Diagnoses Chest pain R07.9 Unstable angina I20.0
== END 2025-06-05 11:45 | disposition home or self-care (01) | DRG 251 ==
LOC: ER 17:42 → CSU 17:47
PROVIDERS: Internal Medicine; Student in an Organized Health Care Education/Training Program; Admitting Provider Family Medicine; Emergency Provider Emergency Medicine; Visit Provider Family Medicine
PROC: 02703ZZ Dilation of Coronary Artery, One Artery, Percutaneous Approach (ICD-10-PCS; principal; 2025-06-04 07:00)
PROC: 02703ZZ Dilation of Coronary Artery, One Artery, Percutaneous Approach (ICD-10-PCS; 2025-06-04 07:00)
DX: I25.110 Atherosclerotic heart disease of native coronary artery with unstable angina pectoris (principal); R04.2 Hemoptysis; Z82.49 Family history of ischemic heart disease and other diseases of the circulatory system
CPT/HCPCS: 36415; 71045; 71275; 78452; 80053; 80061; 80306; 80307; 83036; 83690; 83880; 84443; 84484; 85025; 85378; 85651; 86140; 93005; 93017; 93306; 93458; 94664; 96374; 96375; 96376; 99152; 99153; 99285; A9500; C1760; C1769; C1874; C1887; C1894; C9600; G0269; G0378; J0583; J1200; J1885; J2250; J2270; J2470; J2785; J3010; J3490; J7030; J7040; J9999; Q9967

== ENCOUNTER 2025-06-06 14:55 | Emergency (ER) | payer MEDICARE, SELFPAY ==
[2025-06-06] VITALS (7 sets, daily range): BP systolic 132–143; BP diastolic 87–94; PULSE 68–80; RESP 15–18; TEMP 36.7; O2SAT 95–99; BMI 33.3
--- NOTE | 2025-06-06 14:56 | XRR_ITS ---
PROCEDURE INFORMATION: Exam: XR Chest Exam date and time: 06/06/2025 3:32 PM Age: 64 years old Clinical indication: Pain; Angina pectoris; Prior surgery; Surgery date: 6+ months; Surgery type: Cardiac stent; Additional info: C p TECHNIQUE: Imaging protocol: Radiologic exam of the chest. Views: 1 view. COMPARISON: CT angio chest PE protcl [id number] 06/02/2025 7:01 PM FINDINGS: Lungs: Unremarkable. No consolidation or mass. Pleural spaces: Unremarkable. No pleural effusion. No pneumothorax. Heart/Mediastinum: Unremarkable. No cardiomegaly. Diaphragm: There is chronic elevation of the right hemidiaphragm. Bones/joints: Unremarkable. XR/XR chest 1V portable [id number] IMPRESSION: No acute findings.
--- NOTE | 2025-06-06 14:56 | ECG_ITS ---
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 Measurements Intervals [place] Rate: 83 P: 49 HI: 149 QRS: 7 QRSD: 72 T: 16 QT: 336 QTc: 395 Interpretive Statements SINUS RHYTHM INTERPRETATION BASED ON A DEFAULT AGE OF 40 YEARS Compared to ECG 06/04/2025 13:37:54 No significant changes Electronically Signed On 06-07-2025 09:50:47 CDT by Eve Rodriguez M.D. [email or web address] [id number]
--- OUTSIDE RECORDS SUMMARY | 2025-06-06 15:10 | XMS_ITS | Clinical Summary ---
Author Organization [facility] Address [address] [address] Phone Care Team Providers Care Tail End Rider Name Role Phone Catalino Melgoza MD Primary Care Provider [phone] [phone] Allergies No known active allergies Medications cyclobenzaprine [...] - 04/15/2025 11:59 PM CDT Hospital Encounter [facility] Emergency Medical Services [place] [address] [place] [address] Ambulance, [facility] Discharge Disposition: Home or Self [...] on file Legal Sex Male 3:48 PM MODELER Gender Identity Not on file Sexual Orientation [...] YEAR (AUTO ORDER) 10/09/2024 10/09/2023 [place] Prev entative Visit/Annual Wellness Visit 11/24/2024 11/13/2022 [...] children. ESTIMATED AVERAGE GLUCOSE (MG/DL) 134 mg/dL [facility] ESTIMATED AVERAGE GLUCOSE (MMOL/L) 7.4 mmol/L [facility] Comment: This test was performed on the [employer] jessica c503 platform. Effective 02/09/24, a change in test platforms from the [employer] to the Jennifer jessica c503 may have shifted HbA1c results compared to historical results. Based on laboratory validation testing conducted at [facility], the Jennifer platform relative to the [employer] [...] platforms is not recommended. Test Performed at: [facility] [id number] [place] [address] Clarissa Joseph MD Blood 07/02/2024 9:58 AM CDT 07/03/2024 4:54 AM CDT Ana Alcantar NP CHEMISTRY ORDERABLES Final Res ult [facility] [phone] [facility] [address] [place] [address] * ENDOSCOPY, COLON, DIAGNOSTIC (12/17/2022) [facility] GI PROCEDURE ORDERABLES Final Result from Last 3 Months or Most Recently Relevant to Health Maintenance Insurance [facility] [id number] [facility] Care Teams Tail End Rider Relationship Specialty Start Date End Date Catalino Melgoza MD [address] [place] [address] PCP - General Family Practice 12/31/22
--- OUTSIDE RECORDS SUMMARY | 2025-06-06 15:10 | XMS_ITS | Encounter Summary ---
Author Organization [facility] Address [address] [place] [address] Care Team Providers Care Certified Lactation Educator Name Role Phone Catalino Melgoza MD Primary Care Provider [phone] [phone] Encounter Details Date Type Department Care Team (Late st Contact Info) Description 12/31/2021 Digital Self COVID-1 9 Monitoring [facility] ABSTRACTION Provider, Abstract NO ADDRESS ON FILE Social History Tobacco Use Types Packs/Day Years Used Date Smoking Tobacco: Never Smokeless Tobacco: Never Sex and Gender Information Value Date Recorded Sex Assigned at Not on file Legal Sex Male 3:48 PM RELIEF PHARMACIST Gender Identity Not on file Sexual Orientation Not on file COVID-19 Exposure Response Date Recorded In the last month, have you been in contact with someone who was confirmed or suspected to have Coronavirus / COVID-19? No / Unsure 12/22/2021 4:00 PM RELIEF PHARMACIST documented as of this encounter Plan of Treatment Not on file documented as of this encounter Visit Diagnoses Not on filedocumented in this encounter Care Teams Certified Lactation Educator Relationship Specialty Start Date End Date Catal[place] [address] PCP - General Family Practice 12/31/22 documented as of this encounter
--- OUTSIDE RECORDS SUMMARY | 2025-06-06 15:10 | XMS_ITS | Encounter Summary ---
Author Organization [facility] Address [address] [place] [address] Care Team Providers Care Surgical Sales Representative Name Role Phone Catalino Melgoza MD Primary Care Provider [phone] Encounter Details Date Type Department Care Team (Late st Contact Info) Description 12/29/2021 Digital Self COVID-1 9 Monitoring [facility] ABSTRACTION Provider, Abstract NO ADDRESS ON FILE Social History Tobacco Use Types Packs/Day Years Used Date Smoking Tobacco: Never Smokeless Tobacco: Never Sex and Gender Information Value Date Recorded Sex Assigned at Not on file Legal Sex Male 3:48 PM MANAGER VALIDATION Gender Identity Not on file Sexual Orientation Not on file COVID-19 Exposure Response Date Recorded In the last month, have you been in contact with someone who was confirmed or suspected to have Coronavirus / COVID-19? No / Unsure 12/22/2021 4:00 PM MANAGER VALIDATION documented as of this encounter Plan of Treatment Not on file documented as of this encounter Visit Diagnoses Not on filedocumented in this encounter Care Teams Surgical Sales Representative Relationship Specialty Start Date End [place] [address] PCP - General Family Practice 12/31/22 documented as of this encounter
--- OUTSIDE RECORDS SUMMARY | 2025-06-06 15:10 | XMS_ITS | Encounter Summary ---
Author Organization [facility] Address [address] [place] [address] Care Team Providers Care Rail Washer Name Role Phone Catalino Melgoza MD Primary Care Provider [phone] Encounter Details Date Type Department Care Team (Late st Contact Info) Description 12/31/2021 Digital Self COVID-1 9 Monitoring [facility] ABSTRACTION Provider, Abstract NO ADDRESS ON FILE Social History Tobacco Use Types Packs/Day Years Used Date Smoking Tobacco: Never Smokeless Tobacco: Never Sex and Gender Information Value Date Recorded Sex Assigned at Not on file Legal Sex Male 3:48 PM FORECAST ANALYST Gender Identity Not on file Sexual Orientation Not on file COVID-19 Exposure Response Date Recorded In the last month, have you been in contact with someone who was confirmed or suspected to have Coronavirus / COVID-19? No / Unsure 12/22/2021 4:00 PM FORECAST ANALYST documented as of this encounter Plan of Treatment Not on file documented as of this encounter Visit Diagnoses Not on filedocumented in this encounter Care Teams Rail Washer Relationship Specialty Start Date End [place] [address] PCP - General Family Practice 12/31/22 documented as of this encounter
--- OUTSIDE RECORDS SUMMARY | 2025-06-06 15:10 | XMS_ITS | Encounter Summary ---
Author Organization [facility] Address [address] [place] [address] Care Team Providers Care Information Assurance Engineer Name Role Phone Catalino Melgoza MD Primary Care Provider [phone] Encounter Details Date Type Department Care Team (Late st Contact Info) Description 12/30/2021 Digital Self COVID-1 9 Monitoring [facility] ABSTRACTION Provider, Abstract NO ADDRESS ON FILE Social History Tobacco Use Types Packs/Day Years Used Date Smoking Tobacco: Never Smokeless Tobacco: Never Sex and Gender Information Value Date Recorded Sex Assigned at Not on file Legal Sex Male 3:48 PM PEDIATRIC OPHTHALMOLOGIST Gender Identity Not on file Sexual Orientation Not on file COVID-19 Exposure Response Date Recorded In the last month, have you been in contact with someone who was confirmed or suspected to have Coronavirus / COVID-19? No / Unsure 12/22/2021 4:00 PM PEDIATRIC OPHTHALMOLOGIST documented as of this encounter Plan of Treatment Not on file documented as of this encounter Visit Diagnoses Not on filedocumented in this encounter Care Teams Information Assurance Engineer Relationship Specialty Start Date End [place] [address] PCP - General Family Practice 12/31/22 documented as of this encounter
--- OUTSIDE RECORDS SUMMARY | 2025-06-06 15:10 | XMS_ITS | Encounter Summary ---
Author Organization [facility] Address [address] [place] [address] Care Team Providers Care Supervisor Orchard Name Role Phone Catalino Melgoza MD Primary Care Provider [phone] Encounter Details Date Type Department Care Team (Late st Contact Info) Description 12/30/2021 Digital Self COVID-1 9 Monitoring [facility] ABSTRACTION Provider, Abstract NO ADDRESS ON FILE Social History Tobacco Use Types Packs/Day Years Used Date Smoking Tobacco: Never Smokeless Tobacco: Never Sex and Gender Information Value Date Recorded Sex Assigned at Not on file Legal Sex Male 3:48 PM CENTRAL LAB TECHNICIAN Gender Identity Not on file Sexual Orientation Not on file COVID-19 Exposure Response Date Recorded In the last month, have you been in contact with someone who was confirmed or suspected to have Coronavirus / COVID-19? No / Unsure 12/22/2021 4:00 PM CENTRAL LAB TECHNICIAN documented as of this encounter Plan of Treatment Not on file documented as of this encounter Visit Diagnoses Not on filedocumented in this encounter Care Teams Supervisor Orchard Relationship Specialty Start Date End Date [place] [address] PCP - General Family Practice 12/31/22 documented as of this encounter
--- OUTSIDE RECORDS SUMMARY | 2025-06-06 15:10 | XMS_ITS | Encounter Summary ---
Author Organization [facility] Address [address] [place] [address] Care Team Providers Care Ladder Operator Name Role Phone Catalino Melgoza MD Primary Care Provider [phone] [phone] Encounter Details Date Type Department Care Team (Late st Contact Info) Description 12/29/2021 Digital Self COVID-1 9 Monitoring ST[facility] ABSTRACTION Provider, Abstract NO ADDRESS ON FILE Social History Tobacco Use Types Packs/Day Years Used Date Smoking Tobacco: Never Smokeless Tobacco: Never Sex and Gender Information Value Date Recorded Sex Assigned at Not on file Legal Sex Male 3:48 PM DIGITAL TRAFFIC COORDINATOR Gender Identity Not on file Sexual Orientation Not on file COVID-19 Exposure Response Date Recorded In the last month, have you been in contact with someone who was confirmed or suspected to have Coronavirus / COVID-19? No / Unsure 12/22/2021 4:00 PM DIGITAL TRAFFIC COORDINATOR documented as of this encounter Plan of Treatment Not on file documented as of this encounter Visit Diagnoses Not on filedocumented in this encounter Care Teams Ladder Operator Relationship Specialty Start Date End Date Catal[place] [address] PCP - General Family Practice 12/31/22 documented as of this encounter
--- NOTE | 2025-06-06 15:42 | ED_ITS ---
HPI - Chest Pain 2 General: Chief Complaint: Chest Pain Stated Complaint: chest pain Time Seen by Provider: 06/06/25 15:25 Source: patient Mode of arrival: ambulatory Limitations: no limitations History of Present Illness: 64-year-old male with a history of a raffi nt placed this last week. He states he had recently been discharged from the hospital he started having some chest pain just it worsened today pain is a sharp pain in his left chest with some numbness in his arm he denies any shortness of breath denies any worse improving factors. Associated symptoms: Deny abdominal pain, dyspnea, fever(s), nausea or vomiting Related Data Previous Rx's ?Medication ?Instructions ?Recorded aspirin 81 mg tablet,delayed 81 mg PO DAILY 30 days #3 0 tabs 06/05/25 release atorvastatin 40 mg tablet 40 mg PO BEDTIME 30 days #30 tabs 06/05/25 clopidogrel 75 mg tablet 75 mg PO DAILY 30 days #30 t abs 06/05/25 isosorbide mononitrate 30 mg 15 mg (1/2 x 30 mg) PO DA BLADIMIR 30 06/05/25 tablet,extended release 24 hr days #30 tabs metoprolol tartrate 25 mg tablet 12.5 mg (1/2 x 25 mg) PO 06/05/25 BID@0900,2100 30 days #30 tabs nitroglycerin 0.4 mg sublingual 0.4 mg sublingual Q5M PRN Chest 06/05/25 tablet Pain 30 days #30 tabs Allergies Allergy/AdvReac Type Severity Reaction Status Date / Time Pork/Porcine Containing Allergy ALGY-Hives Verified 06/02/25 18:30 Products Review of Systems 2 Const: Denies: fever(s), chills, body aches or change in appetite ENMT: Denies: throat pain or dental pain Card: Reports: chest pain Resp: Denies: dyspnea GI: Denies: abdominal pain, nausea, vomiting or diarrhea Musc: Denies: neck pain or back pain Skin/Breast: Denies: rash Neuro: Denies: headache(s) PFSH ED 2 PFSH: Medical History No pertinent past medical history Family History Father CAD (coronary artery disease) Brother CAD (coronary artery disease) Social History Smoking and tobacco/nicotine status: never used tobacco/nicotine Alcohol intake: never Substance/Drug Use: never Physical Exam 2 Const: COMMON NORMALS: no acute distress, patient oriented x3 and healthy appearing HENMT: COMMON NORMALS: normocephalic and atraumatic HEAD & SCALP: n ormocephalic and atraumatic Eye: COMMON NORMALS: conjunctivae normal CONJUNCTIVA: Yes conjunctivae normal Neck/C-Spine: COMMON NORMALS: full ROM and supple Chest: COMMONS NORMALS: normal inspection of the chest Resp: COMMON NORMALS: normal respiratory effort, No retractions, No use of accessory muscles and clear to auscultation bilaterally AUSCULTATION: clear to auscultation bilaterally Cardio: COMMON NORMALS: regular rate, regular rhythm and No murmurs present (Cardio) RATE: regular rate RHYTHM: regular rhythm Extremity: COMMON NORMALS: normal to inspection and full ROM Neuro: COMMON NORMALS: patient oriented x3, moves all extremities and no focal motor deficits Psych: COMMON NORMALS: mental status grossly normal, Normal thought process present and cooperative THOUGHT PROCESS: Normal thought process present Skin: COMMON NORMALS: no rashes or lesions noted and no wounds GENERAL SKIN EXAM: no rashes or lesions noted Course 2 Vital Signs: Vital signs: Vital Signs Temperature 98.0 F 06/06/25 14:57 Pulse Rate 68 06/06/25 17:02 Respiratory Rate 16 06/06/25 17:02 Blood Pressure 136/92 06/06/25 17:02 Pulse Oximetry 95 06/06/25 17:02 Oxygen Delivery Me thod Room Air 06/06/25 17:02 MDM - Chest Pain Medical Decision Making Patient presents for chest pain is atypical in nature his pain is resolved here initial repeat troponin are negative no signs of ACS he is to follow-up with his database administrator return if worsening he understands agrees to plan Medical Records I reviewed the patient's medical records. Lab Data I reviewed the patient's lab results. 06/06/25 15:24 06/06/25 15:24 Laboratory Results WBC 7.09 10^3/uL (3.29-11.43) 06/06/25 15:24 RBC 5.10 10^6/uL (3.85-5.65) 06/06/25 15:24 Hgb 15.00 g/dL (11.27-16.99) 06/06/25 15:24 Hct 45.1 % (37-53) 06/06/25 15:24 MCV 88.4 fl (82-101) 06/06/25 15:24 MCH 29.4 pg (27-33) 06/06/25 15:24 MCHC 33.3 g/dL (30-55) 06/06/25 15:24 RDW 12.7 % (12.1-15.1) 06/06/25 15:24 Plt Count 195 10^3/cmm (157-399) 06/06/25 15:24 MPV 9.8 fL (7.4-10.4) 06/06/25 15:24 Neut % (Auto) 65.6 % 06/06/25 15:24 Lymph % (Auto) 24.0 % 06/06/25 15: [place] % (Auto) 8.6 % 06/06/25 15:24 Eos % (Auto) 0.7 % 06/06/25 15:24 Baso % (Auto) 0.7 % 06/06/25 15:24 Neut # (Auto) 4.65 10^3/uL (1.8-7.7) 06/06/25 15:24 Lymph # (Auto) 1.7 10^3/uL (0.8-4.8) 06/06/25 15:24 [place] # (Auto) 0.6 10^3/uL (0.2-0.9) 06/06/25 15:24 Eos # (Auto) 0.1 10^3/uL (0.0-0.8) 06/06/25 15:24 Baso # (Auto) 0.1 10^3/uL (0.0-0.1) 06/06/25 15: Nucleated RBC % (auto) 0 % 06/06/25 15: Nucleated RBCs # 0.0 /100WBC 06/06/25 15: PT 13.40 SECONDS (12.1-14.9) 06/06/25 15: INR 0.95 (0.8-1.2) 06/06/25 15:24 Sodium 140 mmol/L (136-145) 06/06/25 15:24 Potassium 4.0 mmol/L (3.5-5.1) 06/06/25 15:24 Chloride 102 mmol/L (98-107) 06/06/25 15:24 Carbon Dioxide 22 mmol/L (22-29) 06/06/25 15:24 Anion Gap 20.0 (5-19) H 06/06/25 15:24 BUN 13 mg/dL (8-23) 06/06/25 15:24 Creatinine 0.9 mg/dL (0.7-1.2) 06/06/25 15:24 GFR Calculation 85.2 mL/min (90-130) L 06/06/25 15:24 Glucose 100 mg/dL (65-115) 06/06/25 15:24 Calculated Osmolality 290 mOsm/kg (285-295) 06/06/25 15:24 Calcium 9.2 mg/dL (8.5-10.5) 06/06/25 15:24 Total Bilirubin 0.6 mg/dL (0.15-1.2) 06/06/25 15:24 AST 17 U/L (0-40) 06/06/25 15:24 ALT 18 U/L (0-41) 06/06/25 15:24 Alkaline Phosphatase 98 U/L (40-130) 06/06/25 15:24 Troponin T Baseline 46 ng/L (0-15) H 06/06/25 15:24 Troponin T 120 Minute 44.78 ng/L (0-15) H 06/06/25 16:53 Delta Troponin T -1.22 ABS# (0-10) L 06/06/25 16:53 Total Protein 7.2 g/dL (6.6-8.7) 06/06/25 15:24 Albumin 4.7 g/dL (3.5-5.2) 06/06/25 15:24 Globulin 2.5 g/dL (1.3-4.6) 06/06/25 15:24 Lipase 32 U/L (13-60) 06/06/25 15:24 All radiology interpretation(s) finalized by discharge Discharge Plan Discharge Patient Disposition: Home Clinical Impression: Chest pain Condition: Stable Prescriptions: No Action atorvastatin 40 mg Tablet 40 mg PO BEDTIME 30 Days Qty: 30 0RF isosorbide mononitrate 30 mg Tablet Extended Release 24 Hr 15 mg PO DAILY 30 Days Qty: 30 0RF clopidogrel 75 mg Tablet 75 mg PO DAILY 30 Days Qty: 30 0RF aspirin 81 mg Tablet,Delayed Release (Dr/Ec) 81 mg PO DAILY 30 Days Qty: 30 0RF nitroglycerin 0.4 mg Tablet, Sublingual 0.4 mg sublingual Q5M PRN (Reason: Chest Pain) 30 Days Qty: 30 0RF metoprolol tartrate 25 mg Tablet 12.5 mg PO BID@0900,2100 30 Days Qty: 30 0RF Discharge Orders: Discharge ED (Routine); Ordered 06/06/25 Ordered By: Kalyan Ku Referrals: Fab Petersen M.D [Physician, Cardiology] - 4-7 days Discharge Diet: Advance as tolerated Discharge Activity: Resume usual activity Patient Instructions: Chest Pain (ED) Print Language: Ukrainian Coding Level of Care Code ED Observation Nurse for Tarun Saez
[2025-06-06 15:51] LABS: Hematocrit 45.1 % (37-53); Hemoglobin 15.00 g/dL (11.27-16.99); Mean Corpuscular HGB Conc 33.3 g/dL (30-55); Mean Corpuscular Hemoglobin 29.4 pg (27-33); Mean Corpuscular Volume 88.4 fl (82-101); Nucleated Red Blood Cells % 0 %; Platelet Count 195 10^3/cmm (157-399); Red Blood Count 5.10 10^6/uL (3.85-5.65); White Blood Count 7.09 10^3/uL (3.29-11.43)
[2025-06-06] MEDS: ondansetron 2 mg/ML SDV 2 mL 4 MG IVP (16:02)
[2025-06-06] MEDS: morphine 4 mg/mL SDV 1 mL IVP (16:02)
[2025-06-06 16:08] LABS: INR 0.95 (0.8-1.2); Prothrombin Time 13.40 SECONDS (12.1-14.9)
[2025-06-06 16:13] LABS: Troponin(5th) Baseline 46 ng/L (0-15)
[2025-06-06 16:17] LABS: Alanine Aminotransferase 18 U/L (0-41); Albumin Level 4.7 g/dL (3.5-5.2); Alkaline Phosphatase 98 U/L (40-130); Anion Gap 20.0 (5-19); Aspartate Amino Transferase 17 U/L (0-40); Blood Urea Nitrogen 13 mg/dL (8-23); Calcium 9.2 mg/dL (8.5-10.5); Carbon Dioxide 22 mmol/L (22-29); Chloride 102 mmol/L (98-107); Creatinine Clr Calc Pharmacy 86.9663; Globulin 2.5 g/dL (1.3-4.6); Glucose 100 mg/dL (65-115); Lipase 32 U/L (13-60); Osmolality Calculated 290 mOsm/kg (285-295); Potassium 4.0 mmol/L (3.5-5.1); Sodium 140 mmol/L (136-145); Total Protein 7.2 g/dL (6.6-8.7)
[2025-06-06 17:24] LABS: Troponin 5 2HR 44.78 ng/L (0-15)
[2025-06-06 17:25] LABS: Troponin 5 2HR Delta -1.22 ABS# (0-10)
== END 2025-06-06 17:49 | disposition home or self-care (01) ==
PROVIDERS: Emergency Provider Emergency Medicine
DX: R07.9 Chest pain, unspecified (principal); Z79.02 Long term (current) use of antithrombotics/antiplatelets; Z79.82 Long term (current) use of aspirin
CPT/HCPCS: 36415; 71045; 80053; 83690; 84484; 85025; 85610; 93005; 96374; 96375; 99285; J2270; J2405; J9999

== ENCOUNTER → 2025-06-09 08:27 | Outpatient (BNVA) | payer MEDICARE, SELFPAY | PROVIDERS: Visit Provider Nurse Practitioner Family | DX: R07.9 Chest pain, unspecified (principal); Z79.02 Long term (current) use of antithrombotics/antiplatelets; Z79.82 Long term (current) use of aspirin | CPT/HCPCS: 93005; 99213 ==

== ENCOUNTER 2025-06-10 10:21 | Observation (INO) | payer MEDICARE, SELFPAY ==
--- OUTSIDE RECORDS SUMMARY | 2025-06-07 11:00 | XMS_ITS | Encounter Summary ---
Author Organization [facility] Address [address] [place] [address] Care Team Providers Care Bark Skinner Name Role Phone Catalino Melgoza MD Primary Care Provider +1 [phone] Reason for Visit * Reason Comments Hospital Follow Up Chest PainOZH D/C Encounter Details Date Type Department Care Team (Late st Contact Info) Description 06/07/2025 11:00 AM CDT Office Visit [facility] Medicine [address] [address] Ana Alcantar NP [address] [place] [address] Hospital discharge follow-up (Primary Dx); Oral lesion; Blisters of multiple sites; Chest pain, unspecified type; Morbid obesity (CMS/HCC) Social History Tobacco Use Types Packs/Day Years Used Date Smoking Tobacco: Never Smokeless Tobacco: Never Alcohol Use Standard Drinks/Week Comments Never 0 (1 standard drink = 0.6 oz pur e alcohol) Sex and Gender Information Value Date Recorded Sex Assigned at Not on file Legal Sex Male 3:48 PM ARTIFICIAL GLASS EYE MAKER Gender Identity Not on file Sexual Orientation Not on file documented as of this encounter Last Filed Vital Signs Vital Sign Reading Time Taken Comments Blood Pressure 119/79 06/07/2025 11:02 AM CDT Pulse 77 06/07/2025 11:02 AM CDT Temperature 37.1 C (98.8 F) 06/07/2025 11:02 AM CDT Respiratory Rate 19 06/07/2025 11:02 AM CDT Oxygen Saturation 99% 06/07/2025 11:02 AM CDT Inhaled Oxygen Concentration - - Weight 96.3 kg (212 lb 6.4 oz) 06/07/2025 11:02 AM CDT Height 165.1 cm (5' 5 ) 06/07/2025 11:02 AM CDT Body Mass Index 35.35 06/07/2025 11:02 AM CDT documented in this encounter Progress Notes * Catalino Melgoza MD - 06/08/2025 8:46 AM CDTAssociated Order(s): EKG 12-LEAD Pre-Procedure Diagnose(s): Chest pain, unspecified type Post-Procedure Diagnose(s): Chest pain, unspecified type EKG 12-LEAD Date/Time: 06/07/2025 11:00 AM Performed by: Catalino Melgoza MD Authorized by: Ana Alcantar NP Comparison: not compared with previous ECG Previous ECG: no previous ECG available Rhythm: sinus rhythm Rate: normal BPM: 77 QRS axis: normal Conduction: conduction normal ST Segments: ST segments normal T Waves: T waves normal Other: no other findings Clinical impression: normal ECG Annotated Image * Ana Alcantar NP - 06/07/2025 11:13 AM CDT Images from the original note were not included. [facility] 06/07/2025 Subjective: Eliecer Ngo is a 64 y.o. male who comes today for evaluation of Hospital Follow Up (Chest Pain/OZH D/C 06/06/25) . History of Present Illness The patient is a 64-year-old male here for [facility] discharge, chest pain, stent placement,and blisters on his left arm. He was recently admitted to [facility] for 4 to 5 days due to persistent chest pain, which he describes as intermittent but constant, accompanied by spasms. The severity of the pain increasedyesterday, leading to his readmission. Despite undergoing several tests, including blood work, no abnormalities were found. He was informed that the pain could be due to the new blood flow from a recently opened vein exciting the heart, a condition expected to last for another 9 to 15 days. His blood pressure today is 117/80. He has not taken any medication today due to concerns about developing blisters. He has been advised to consult his primary care physician before seeing his turning sander tender. He reports no issues with his blood pressure since starting the prescribed medication, but notes a decrease in his blood pressure following the vein opening procedure. He is considering discontinuing his blood pressure medication once his current health issues are resolved. He experienced chest painand numbness in his entire arm, prompting him to seek medical attention. His blood test results showed an increase from 6 to 15, and then to 16.9, leading to his admission for surgery. He was informed that 55% of his heart is functioning well and that the new blood flow should strengthen it. He reports no breathing difficulties. He has developed blisters on his left arm, which he first noticed during his hospital stay. He alsoreports feeling similar blisters inside his mouth and around his eyelids. He suspects these could be a reaction to the medication he was given in the hospital. He reports no presence of blisters in his groin area. He describes the blisters as hot and painful, but notes that they have not yet burst.He recalls a similar experience when he was 21 years old, after consuming pork, which caused blistering on his arms. PAST SURGICAL HISTORY: Stent placement Review of Systems Constitutional: Negative for chills and fever. Respiratory: Negative for shortness of breath. Cardiovascular: Negative for chest pain. Musculoskeletal: Negative for myalgias. Skin: Positive for rash. All other systems reviewed and are negative. Objective: Vitals: 06/07/25 1102 Temp: 98.8 ??F (37.1 ??C) Pulse: 77 BP: 119/79 Resp: 19 SpO2: 99% Physical Exam Vitals and nursing note reviewed. Constitutional: Appearance: Normal appearance. HENT: Head: Normocephalic and atraumatic. Right Ear: Tympanic membrane, ear canal and external ear normal. Left Ear: Tympanic membrane, ear canal and external ear normal. Nose: Nose normal. Mouth/Throat: Mouth: Mucous membranes are moist. Pharynx: Oropharynx is clear. Eyes: Pupils: Pupils are equal, round, and reactive to light. Cardiovascular: Rate and Rhythm: Normal rate and regular rhythm. Pulses: Normal pulses. Heart sounds: Normal heart sounds. No murmur heard. Pulmonary: Effort: Pulmonary effort is normal. Breath sounds: Normal breath sounds. Abdominal: General: Abdomen is flat. Bowel sounds are normal. Palpations: Abdomen is soft. Musculoskeletal: General: Normal range of motion. Cervical back: Normal range of motion and neck supple. Skin: General: Skin is warm and dry. Capillary Refill: Capillary refill takes less than 2 seconds. Comments: Blisters noted to left thumb, in mouth, around eyebrows and mustache Neurological: General: No focal deficit present. Mental Status: He is alert and oriented to person, place, and time. Psychiatric: Mood and Affect: Mood normal. Behavior: Behavior normal. Past medical history, surgical history and social history reviewed. Past Medical History: Diagnosis Date Diverticulitis Diverticulosis of colon HTN (hypertension) Hyperlipidemia Assessment/Plan: ICD-10-CM ICD-9-CM 1. Hospital discharge follow-up Z09 V67.59 2. Oral lesion K13.70 528.9 triamcinolone acetonide (KENALOG) 0.1 % Paste 3. Blisters of multiple sites R23.8 919.2 mupirocin (BACTROBAN) 2 % Ointment 4. Chest pain, unspecified type R07.9 786.50 EKG 12-LEAD 5. Morbid obesity (CMS/HCC) E66.01 278.01 Assessment & Plan 1. Chest pain. - Recent lab work results were within normal limits. - EKG performed today due to ongoing chest pain yielded satisfactory results. - Chest pain could be attributed to recent stent placement; current medication regimen may need adjustment. - Advised to consult with turning sander tender promptly for further evaluation and potential adjustment of medication regimen. 2. Blisters on left arm. - Blisters could be a side effect of current medication. - Discontinuing any medications is not recommended due to their necessity following recent stent placement. - Topical antibiotic cream will be prescribed to prevent infection of the blisters. - Medication will be prescribed to help resolve the blisters in the mouth. ELAINE Chris The author of this note, patient (or authorized retail service representative), and all other persons present consent to the audio recording of this visit for charting documentation purposes. This note was automatically generated by a Generative AI technology ([email or web address]), reviewed, edited, and finalized by Ana Alcantar NP. Depression Screen Positive: PHQ-2 score >= 3 or PHQ-9 score >= 9 PHQ-2 Total: 0 (06/07/2025 11:02 AM) DEPRESSION PLAN OF CARE His depression screen was negative. (PHQ2 <3, PHQ9 <10, [place] <11) documented in this encounter Plan of Treatment Upcoming Encounters Date Type Department Care Team (Late st Contact Info) Description 11/07/2025 8:40 AM ARTIFICIAL GLASS EYE MAKER Office Visit [facility] [address] [address] Catalino Melgoza MD [address] [phone] documented as of this encounter Procedures Procedure Name Priority Date/Time Associated Diagnosis Comments PA ECG ROUTINE ECG W/LEAST 12 LDS W/I&R Routine 06/07/2025 11:00 AM CDT Chest pain, unspecified type documented in this encounter Results * PA ECG ROUTINE ECG W/LEAST 12 LDS W/I&R (06/07/2025 11:00 AM CDT) Narrative [facility] - 06/07/2025 11:00 AM CDT Catalino Melgoza MD 06/08/2025 8:47 AM EKG 12-LEAD Date/Time: 06/07/2025 11:00 AM Performed by: Catalino Melgoza MD Authorized by: Ana Alcantar NP Comparison: not compared with previous ECG Previous ECG: no previous ECG available Rhythm: sinus rhythm Rate: normal BPM: 77 QRS axis: normal Conduction: conduction normal ST Segments: ST segments normal T Waves: T waves normal Other: no other findings Clinical impression: normal ECG us Ana Alcantar NP ECG ORDERABLES Edited Result - Final [facility] CLIA# [id number] [address] [place] [address] documented in this encounter Visit Diagnoses Diagnosis Hospital discharge follow-up- Primary Other follow-up examination Oral lesion Other and unspecified diseases of the oral soft tissues Blisters of multiple sites Other, multiple, and unspecified sites, blister, without mention of infection Chest pain, unspecified type Morbid obesity (CMS/HCC) Morbid obesity documented in this encounter Care Teams Bark Skinner Relationship Specialty Start Date End Date Catalino Melgoza MD [address] [place] [address] PCP - General Family Practice 12/31/22 documented as of this encounter
--- OUTSIDE RECORDS SUMMARY | 2025-06-07 11:00 | XMS_ITS | Encounter Summary ---
Author Organization [facility] Address 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 [facility] 06/07/2025 Subjective: Eliecer Ngo is a 64 y.o. male who comes today for evaluation of Hospital Follow Up (Chest Pain/OZH D/C 06/06/25) . History of Present Illness The patient is a 64-year-old male here for [facility] discharge, chest pain, stent placement,and blisters on his left arm. He was recently admitted to [facility] for 4 to 5 days due [...] his primary care physician before seeing his claim review medical director. He reports no issues with his blood [...] need adjustment. - Advised to consult with claim review medical director promptly for further evaluation and potential adjustment [...] author of this note, patient (or authorized account development representative), and all other persons present consent to the audio recording of this visit for charting documentation purposes. This note was automatically generated by a Generative AI technology ([email or web address]), reviewed, edited, and finalized by Ana Alcantar NP. Depression Screen Positive: PHQ-2 score >= 3 or PHQ-9 score >= 9 PHQ-2 Total: 0 (06/07/2025 11:02 AM) DEPRESSION PLAN OF CARE His depression screen was negative. (PHQ2 <3, PHQ9 <10, [place] <11) documented in this encounter Plan of Treatment Upcoming Encounters Date Type Department Care Team (Late st Contact Info) Description 11/07/2025 8:40 AM SENIOR NET SOFTWARE ENGINEER Office Visit [facility] [address] [address] Catalino Melgoza MD [address] [phone] documented as of this encounter Procedures Procedure Name Priority Date/Time Associated Diagnosis Comments ME ECG ROUTINE ECG W/LEAST 12 LDS W/I&R Routine 06/07/2025 11:00 AM CDT Chest pain, unspecified type documented in this encounter Results * ME ECG ROUTINE ECG W/LEAST 12 LDS W/I&R (06/07/2025 11:00 AM CDT) Narrative [facility] - 06/07/2025 11:00 AM CDT Catalino Melgoza [...] NP ECG ORDERABLES Edited Result - Final [facility] CLIA# [id number] [address] [place] [address] documented in this encounter Visit Diagnoses Diagnosis Hospital discharge follow-up- Primary Other follow-up examination Oral lesion Other and unspecified diseases of the oral soft tissues Blisters of multiple sites Other, multiple, and unspecified sites, blister, without mention of infection Chest pain, unspecified type Morbid obesity (CMS/HCC) Morbid obesity documented in this encounter Care Teams Beam Racker Relationship Specialty Start Date End Date Catalino Melgoza MD [address] [place] [address] PCP - General Family Practice 12/31/22 documented as of this encounter
[2025-06-10] VITALS (13 sets, daily range): BP systolic 126–161; BP diastolic 88–103; PULSE 63–77; RESP 17–23; TEMP 36.6–36.8; O2SAT 91–97; BMI 33.3
--- NOTE | 2025-06-10 10:25 | XR_ITS ---
WS: [id number] XR chest 1V portable [id number] REASON FOR EXAM: chest pain FINDINGS: The chest is unchanged compared to 06/06/2025. Mild tortuosity of the thoracic aorta. Heart size is within normal limits. Elevation of the right hemidiaphragm. Calcified granulomatous disease bilaterally. No acute pulmonary parenchymal or pleural abnormality. 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 Mild degenerative spondylosis in the thoracic spine. XR/XR chest 1V portable [id number] IMPRESSION: Stable chest without acute abnormality.
--- NOTE | 2025-06-10 10:25 | ECG_ITS ---
[facility]25[facility] Pat Name: Eliecer Ngo Department: Room: Gender: Male Health Counselor: : 1960 Requested By: Johnathan Villanueva Order Number: [id number] Chinyere MD: Eve Rodriguez M.D. Measurements Intervals [place] Rate: 78 P: 40 IA: 158 QRS: -11 QRSD: 78 T: -3 QT: 367 QTc: 420 Interpretive Statements SINUS RHYTHM Compared to ECG 06/09/2025 08:34:00 No significant changes Electronically Signed On 06-11-2025 14:10:46 CDT by Eve Rodriguez M.D. [email or web address]
--- OUTSIDE RECORDS SUMMARY | 2025-06-10 10:32 | XMS_ITS | Encounter Summary ---
Author Organization [facility] Address [address] [place] [address] Care Team Providers Care Nuclear Supervising Operator Name Role Phone Catalino Melgoza MD Primary Care Provider +1 [phone] Encounter Details Date Type Department Care Team (Late st Contact Info) Description 12/30/2021 Digital Self COVID-1 9 Monitoring [place] ABSTRACTION Provider, Abstract NO ADDRESS ON FILE Social History Tobacco Use Types Packs/Day Years Used Date Smoking Tobacco: Never Smokeless Tobacco: Never Sex and Gender Information Value Date Recorded Sex Assigned at Not on file Legal Sex Male 3:48 PM BREAKER ENGINEER Gender Identity Not on file Sexual Orientation Not on file COVID-19 Exposure Response Date Recorded In the last month, have you been in contact with someone who was confirmed or suspected to have Coronavirus / COVID-19? No / Unsure 12/22/2021 4:00 PM BREAKER ENGINEER documented as of this encounter Plan of Treatment Upcoming Encounters Date Type Department Care Team (Late st Contact Info) Description 11/07/2025 8:40 AM BREAKER ENGINEER Office Visit [facility] Medicine [address] [phone] Catalino Melgoza MD [address] [phone] documented as of this encounter Visit Diagnoses Not on filedocumented in this encounter Care Teams Nuclear Supervising Operator Relationship Specialty Start Date End Date Catalino Melgoza MD [address] [place] [address] PCP - General Family Practice 12/31/22 documented as of this encounter
--- OUTSIDE RECORDS SUMMARY | 2025-06-10 10:32 | XMS_ITS | Encounter Summary ---
Author Organization [facility] Address [address] [place] [address] Care Team Providers Care Purler Name Role Phone Catalino Melgoza MD Primary Care Provider +1 [phone] Reason for Visit * Reason Comments Hospital Follow Up Encounter Details Date Type Department Care Team (Late st Contact Info) Description 06/07/2025 Telephone [facility] Medicine [address] [address] Ana Alcantar NP [address] [place] [phone] Hospital Follow Up Social History Tobacco Use Types Packs/Day Years Used Date Smoking Tobacco: Never Smokeless Tobacco: Never Alcohol Use Standard Drinks/Week Comments Never 0 (1 standard drink = 0.6 oz pur e alcohol) Sex and Gender Information Value Date Recorded Sex Assigned at Not on file Legal Sex Male 3:48 PM RESIN PAINTER Gender Identity Not on file Sexual Orientation Not on file documented as of this encounter Miscellaneous Notes * Telephone Encounter - Ale Lindo - 06/07/2025 3:40 PM CDT Patient was seen 06/07/2025 for his hospital follow up. Ale Lindo, 06/07/2025 3:41 PM * Telephone Encounter - Ariana Spencer - 06/07/2025 9:51 AM CDT Copied from [facility] #[id number]. Topic: Established Patient Care >> Jun 07, 2025 9:45 AM Ariana Traore wrote: Is the patient established with a [facility] provider? Yes, select appropriate option in Discharge Facility SmartList Caller Name: Eliecer Ngo Callback Number: No relevant phone numbers on file. Call Notes: chest pain, stent placed. Scheduled for hospital f/u from [facility] on 06.07.20. Discharged - 06.06.25 Dx: Chest pain Patient is Low Risk Where was the patient discharged from? Hospital Is there availability to schedule the patient within 5 calendar days of discharge? Yes, in person appointment available Patient Access Instructions 1. Enter Appointment Notes as followed based on where patient was discharged from. If discharged from a [facility] discharge If discharged from another hospital - Hospital name, date of discharge, informed patient to sign DINA 2. Link appointment in attachment section below. 3. Select Appointment Scheduled Resolve Reason and Click Close CRM. documented in this encounter Plan of Treatment Upcoming Encounters Date Type Department Care Team (Late st Contact Info) Description 11/07/2025 8:40 AM RESIN PAINTER Office Visit [facility] Family Medicine [address] [phone] Catalino Melgoza MD [address] [phone] documented as of this encounter Visit Diagnoses Not on filedocumented in this encounter Care Teams Purler Relationship Specialty Start Date End Date Catalino Melgoza MD [address] [place] [address] PCP - General Family Practice 12/31/22 documented as of this encounter
--- OUTSIDE RECORDS SUMMARY | 2025-06-10 10:32 | XMS_ITS | Encounter Summary ---
Author Organization [facility] Address [address] [place] [address] Care Team Providers Care Housekeeping Laundry Worker Name Role Phone Catalino Melgoza MD Primary Care Provider [phone] [phone] Encounter Details Date Type Department Care Team (Late st Contact Info) Description 12/29/2021 Digital Self COVID-1 9 Monitoring STL ABSTRACTION Provider, Abstract NO ADDRESS ON FILE Social History Tobacco Use Types Packs/Day Years Used Date Smoking Tobacco: Never Smokeless Tobacco: Never Sex and Gender Information Value Date Recorded Sex Assigned at Not on file Legal Sex Male 3:48 PM INVENTORY ASSOCIATE AND DRIVER Gender Identity Not on file Sexual Orientation Not on file COVID-19 Exposure Response Date Recorded In the last month, have you been in contact with someone who was confirmed or suspected to have Coronavirus / COVID-19? No / Unsure 12/22/2021 4:00 PM INVENTORY ASSOCIATE AND DRIVER documented as of this encounter Plan of Treatment Upcoming Encounters Date Type Department Care Team (Late st Contact Info) Description 11/07/2025 8:40 AM INVENTORY ASSOCIATE AND DRIVER Office Visit [facility] Medicine [address] [phone] Catalino Melgoza MD [address] [phone] documented as of this encounter Visit Diagnoses Not on filedocumented in this encounter Care Teams Housekeeping Laundry Worker Relationship Specialty Start Date End Date Catalino Melgoza MD [address] [place] [address] PCP - General Family Practice 12/31/22 documented as of this encounter
--- OUTSIDE RECORDS SUMMARY | 2025-06-10 10:32 | XMS_ITS | Encounter Summary ---
Author Organization [facility] Address [address] [place] [address] Care Team Providers Care Store Product Demonstrator Name Role Phone Catalino Melgoza MD Primary Care Provider [phone] [phone] Encounter Details Date Type Department Care Team (Late st Contact Info) Description 12/29/2021 Digital Self COVID-1 9 Monitoring [place] ABSTRACTION Provider, Abstract NO ADDRESS ON FILE Social History Tobacco Use Types Packs/Day Years Used Date Smoking Tobacco: Never Smokeless Tobacco: Never Sex and Gender Information Value Date Recorded Sex Assigned at Not on file Legal Sex Male 3:48 PM MAINFRAME ANALYST Gender Identity Not on file Sexual Orientation Not on file COVID-19 Exposure Response Date Recorded In the last month, have you been in contact with someone who was confirmed or suspected to have Coronavirus / COVID-19? No / Unsure 12/22/2021 4:00 PM MAINFRAME ANALYST documented as of this encounter Plan of Treatment Upcoming Encounters Date Type Department Care Team (Late st Contact Info) Description 11/07/2025 8:40 AM MAINFRAME ANALYST Office Visit [facility] Medicine [address] [phone] Catalino Melgoza MD [address] [phone] documented as of this encounter Visit Diagnoses Not on filedocumented in this encounter Care Teams Store Product Demonstrator Relationship Specialty Start Date End Date Catalino Melgoza MD [address] [place] [address] PCP - General Family Practice 12/31/22 documented as of this encounter
--- OUTSIDE RECORDS SUMMARY | 2025-06-10 10:32 | XMS_ITS | Encounter Summary ---
Author Organization [facility] Address [address] [place] [address] Care Team Providers Care Order Picker Name Role Phone Catalino Melgoza MD Primary Care Provider [phone] [phone] Encounter Details Date Type Department Care Team (Late st Contact Info) Description 06/07/[address] [phone] Provider, Abstract NO ADDRESS ON FILE Social History Tobacco Use Types Packs/Day Years Used Date Smoking Tobacco: Never Smokeless Tobacco: Never Alcohol Use Standard Drinks/Week Comments Never 0 (1 standard drink = 0.6 oz pur e alcohol) Sex and Gender Information Value Date Recorded Sex Assigned at Not on file Legal Sex Male 3:48 PM POT RUNNER Gender Identity Not on file Sexual Orientation Not on file documented as of this encounter Plan of Treatment Upcoming Encounters Date Type Department Care Team (Late st Contact Info) Description 11/07/2025 8:40 AM POT RUNNER Office Visit [address] [phone] Catalino Melgoza MD [facility] [address] [phone] documented as of this encounter Visit Diagnoses Not on filedocumented in this encounter Care Teams Order Picker Relationship Specialty Start Date End Date Catalino Melgoza MD [address] [place] [address] PCP - General Family Practice 12/31/22 documented as of this encounter
--- OUTSIDE RECORDS SUMMARY | 2025-06-10 10:32 | XMS_ITS | Clinical Summary ---
Author Organization [facility] Address [address] [address] Phone Care Team Providers Care Sample Steamer Name Role Phone Catalino Melgoza MD Primary Care Provider [phone] [phone] Allergies Active Allergy Reactions Criticality Noted Date Comments Pork Derived (Porcine) Hives High 06/07/2025 Medications cyclobenzaprine (FLEXERIL) 5 mg TabletIndications: Neck pain,Strain of neck muscle, initial encounter Take 1 Tablet (5 mg) by mouth 3 times daily as needed for Spasm. 30 Tablet 1 12/31/19 23 Active Additional Information Patient not taking.Reported on 06/07/2025 amLODIPine (NORVASC) 5 mg tabletIndications: Benign hypertension [...] Hemorrhoids. 28 Gram 3 11/22/20 24 Active atorvastatin (LIPITOR) 40 mg tablet Take 40 mg by mouth daily. Active nitroglycerin (NITROSTAT) 0.4 mg Tablet, Sublingual Place 0.4 mg under tongue every 5 minutes as needed for Chest Pain. Active aspirin (SARA CHEWABLE) 81 mg Tablet, Chewable Take 81 mg by mouth daily. Active metoprolol tartrate (LOPRESSOR) 25 mg tablet Take 25 mg by mouth 2 times daily. Active isosorbide mononitrate (IMDUR) 30 mg Extended Release 24 hour tablet Take 30 mg by mouth daily in the morning. Active clopidogreL (PLAVIX) 75 mg Tablet Take 75 mg by mouth. Active mupirocin (BACTROBAN) 2 % OintmentIndication s:Blisters of multiple sites Apply to affected area daily. 30 Gram 1 06/07/20 25 Active triamcinolone acetonide (KENALOG) 0.1 % PasteIndications:O ral lesion Apply to affected area 2 times daily. 5 Gram 1 06/07/20 25 Active Active Problems Problem Noted Date Diagnosed Date Hyperlipemia 07/02/2024 Benign hypertension 07/02/2024 Encounters Date Type Department Care Team Description 06/07/2025 11:00 AM CDT Office Visit [address] [phone] Ana Alcantar NP Hospital discharge follow-up (Primary Dx); Oral lesion; Blisters of multiple sites; Chest pain, unspecified type; Morbid obesity ([facility]/HCC) 06/07/[address] [phone] Provider, Abstract 06/07/[address] [phone] Provider, Abstract 06/07/[address] [phone] Ana Alcantar NP Hospital Follow Up 05/17/2025 External Device Data [facility] ABSTRACTION Provider, Abstract 05/11/2025 External Device Data [facility] ABSTRACTION Provider, Abstract 05/10/2025 External Device Data [place] ABSTRACTION Provider, Abstract 04/15/2025 3:45 PM CDT - 04/15/2025 11:59 PM CDT Hospital Encounter [facility] [place] [address] [phone] Amb[facility] [place] [facility] Discharge Disposition: Home or Self Care 04/14/2025 [...] on file Legal Sex Male 3:48 PM NEWSPAPER INSERTER Gender Identity Not on file Sexual Orientation [...] Mass Index 35.35 06/07/2025 11:02 AM CDT Plan of Treatment Upcoming Encounters Date Type Department Care Team (Late st Contact Info) Description 11/07/2025 8:40 AM NEWSPAPER INSERTER Office Visit [facility] Family Medicine [place] [address] [phone] Catalino Melgoza MD [address] [phone] Health Maintenance Due Date Last Done Comments FIT/ DNA Q 3 YEARS (AUTO ORDER) 1979 FLEX SIG/CT COLONOGRAPHY Q 5 YEARS (AUTO ORDER) 1979 DTAP/TDAP/TD VACCINES (1 - Tdap) 1980 FIT-DNA Q 3 years 2006 FIT/FOBT Q 1 year 2006 Flex Sig/CT Colonography Q 5 years 2006 ZOSTER VACCINE (1 of 2) 2011 RSV VACCINE (60+ or ) (1 - Risk 60-74 years 1-dose series) 2021 FIT/FOBT Q 1 YEAR (AUTO ORDER) 10/09/2024 10/09/2023 Medicare Ad[place]age ([place]) Prev entative Visit/Annual Wellness Visit 11/24/2024 11/13/2022 INFLUENZA VACCINE (#1) 2025 11/13/2022 Pre-Diabetes and Diabetes Screening 07/02/202707/02 COLORECTAL CANCER SCREENING (AUTO ORDER) 12/17/2032 12/17/2022, 12/17/2022 COLORECTAL SCREENING 12/17/2032 12/17/2022, 12/17/19 Colorectal Cancer Screening (AUTO ORDER) 12/17/2032 Colorectal Cancer Screening 12/17/2032 Procedures Procedure Name Priority Date/Time Associated Diagnosis Comments MD ECG ROUTINE ECG W/LEAST 12 LDS W/I&R Routine 06/07/2025 11:00 AM CDT Chest pain, unspecified type HEMOGLOBIN A1C Routine 07/02/2024 9:58 AM CDT Wellness examination ENDOSCOPY, COLON, DIAGNOSTIC Stat 12/17/2022 Bleeding per rectum History of colon polyps from Last 3 Months or Most Recently Relevant to Health Maintenance Results * MD ECG ROUTINE ECG W/LEAST 12 LDS W/I&R (06/07/2025 11:00 AM CDT) [facility] - 06/07/2025 11:00 AM CDT Catalino Melgoza [...] no other findings Clinical impression: normal ECG Ana Alcantar PORCELAIN ENAMEL LABORER ECG ORDERABLES Edited Result - Final [facility]# [id number] [address] [place] [address] * (ABNORMAL) HEMOGLOBIN A1C (07/02/2024 9:58 AM CDT) HEMOGLOBIN A1C 6.3(H) <5.7 % of total Hgb [facility] Comment: For someone without known diabetes, [...] children. ESTIMATED AVERAGE GLUCOSE (MG/DL) 134 mg/dL [facility] ESTIMATED AVERAGE GLUCOSE (MMOL/L) 7.4 mmol/L [facility] Comment: This test was performed on the Jennifer jessica c503 platform. Effective 02/09/24, a change in test platforms from the [facility] to the Jennifer jessica c503 may have shifted HbA1c results compared to historical results. Based on laboratory validation testing conducted at [facility], the Jennifer platform relative to the [facility] [...] platforms is not recommended. Test Performed at: [facility] [address] [facility] [address] Clarissa Joseph MD Blood 07/02/2024 9:58 AM CDT 07/03/2024 4:54 AM CDT Ana Alcantar PORCELAIN ENAMEL LABORER CHEMISTRY ORDERABLES Final Res ult [facility] [phone] [facility] [address] [address] [address] * ENDOSCOPY, COLON, DIAGNOSTIC (12/17/2022) Loreto Pearson Sheridan TEACHER PRIVATE GI PROCEDURE ORDERABLES Final Result from Last 3 Months or Most Recently Relevant to Health Maintenance Insurance [facility] [id number] [facility] Care Teams Sample Steamer Relationship Specialty Start Date End Date Catalino [place] [address] PCP - General Family Practice 12/31/22
--- OUTSIDE RECORDS SUMMARY | 2025-06-10 10:32 | XMS_ITS | Encounter Summary ---
Author Organization [facility] Address [address] [place] [address] Care Team Providers Care Environmental Protection Forester Name Role Phone Catalino Melgoza MD Primary Care Provider [phone] [phone] Encounter Details Date Type Department Care Team (Late st Contact Info) Description 06/07/[address] [phone] Provider, Abstract NO ADDRESS ON FILE Social History Tobacco Use Types Packs/Day Years Used Date Smoking Tobacco: Never Smokeless Tobacco: Never Alcohol Use Standard Drinks/Week Comments Never 0 (1 standard drink = 0.6 oz pur e alcohol) Sex and Gender Information Value Date Recorded Sex Assigned at Not on file Legal Sex Male 3:48 PM ANTENNA RIGGER Gender Identity Not on file Sexual Orientation Not on file documented as of this encounter Plan of Treatment Upcoming Encounters Date Type Department Care Team (Late st Contact Info) Description 11/07/2025 8:40 AM ANTENNA RIGGER Office Visit [address] [phone] Catalino Melgoza MD [employer] [address] [phone] documented as of this encounter Visit Diagnoses Not on filedocumented in this encounter Care Teams Environmental Protection Forester Relationship Specialty Start Date End Date Catalino Melgoza MD [address] [place] [address] PCP - General Family Practice 12/31/22 documented as of this encounter
--- OUTSIDE RECORDS SUMMARY | 2025-06-10 10:32 | XMS_ITS | Encounter Summary ---
Author Organization [facility] Address [address] [place] [address] Care Team Providers Care Fox Raiser Name Role Phone Catalino Melgoza MD Primary Care Provider [phone] [phone] Encounter Details Date Type Department Care Team (Late st Contact Info) Description 12/31/2021 Digital Self COVID-1 9 Monitoring STL ABSTRACTION Provider, Abstract NO ADDRESS ON FILE Social History Tobacco Use Types Packs/Day Years Used Date Smoking Tobacco: Never Smokeless Tobacco: Never Sex and Gender Information Value Date Recorded Sex Assigned at Not on file Legal Sex Male 3:48 PM INSPECTOR HOT FORGINGS Gender Identity Not on file Sexual Orientation Not on file COVID-19 Exposure Response Date Recorded In the last month, have you been in contact with someone who was confirmed or suspected to have Coronavirus / COVID-19? No / Unsure 12/22/2021 4:00 PM INSPECTOR HOT FORGINGS documented as of this encounter Plan of Treatment Upcoming Encounters Date Type Department Care Team (Late st Contact Info) Description 11/07/2025 8:40 AM INSPECTOR HOT FORGINGS Office Visit [facility] Medicine [address] [phone] Catalino Melgoza MD [address] [phone] documented as of this encounter Visit Diagnoses Not on filedocumented in this encounter Care Teams Fox Raiser Relationship Specialty Start Date End Date Catalino Melgoza MD [address] [place] [address] PCP - General Family Practice 12/31/22 documented as of this encounter
--- OUTSIDE RECORDS SUMMARY | 2025-06-10 10:32 | XMS_ITS | Encounter Summary ---
Author Organization [facility] Address [address] [place] [address] Care Team Providers Care President Mortgage Company Name Role Phone Catalino Melgoza MD Primary Care Provider [phone] [phone] Encounter Details Date Type Department Care Team (Late st Contact Info) Description 12/31/2021 Digital Self COVID-1 9 Monitoring STL ABSTRACTION Provider, Abstract NO ADDRESS ON FILE Social History Tobacco Use Types Packs/Day Years Used Date Smoking Tobacco: Never Smokeless Tobacco: Never Sex and Gender Information Value Date Recorded Sex Assigned at Not on file Legal Sex Male 3:48 PM FILM DRYING MACHINE OPERATOR Gender Identity Not on file Sexual Orientation Not on file COVID-19 Exposure Response Date Recorded In the last month, have you been in contact with someone who was confirmed or suspected to have Coronavirus / COVID-19? No / Unsure 12/22/2021 4:00 PM FILM DRYING MACHINE OPERATOR documented as of this encounter Plan of Treatment Upcoming Encounters Date Type Department Care Team (Late st Contact Info) Description 11/07/2025 8:40 AM FILM DRYING MACHINE OPERATOR Office Visit [facility] Medicine [address] [phone] Catalino Melgoza MD [address] [phone] documented as of this encounter Visit Diagnoses Not on filedocumented in this encounter Care Teams President Mortgage Company Relationship Specialty Start Date End Date Catalino Melgoza MD [address] [place] [address] PCP - General Family Practice 12/31/22 documented as of this encounter
--- OUTSIDE RECORDS SUMMARY | 2025-06-10 10:32 | XMS_ITS | Encounter Summary ---
Author Organization [facility] Address [address] [place] [address] Care Team Providers Care Industrial Tractor Driver Name Role Phone Catalino Melgoza MD Primary Care Provider [phone] [phone] Encounter Details Date Type Department Care Team (Late st Contact Info) Description 12/30/2021 Digital Self COVID-1 9 Monitoring STL ABSTRACTION Provider, Abstract NO ADDRESS ON FILE Social History Tobacco Use Types Packs/Day Years Used Date Smoking Tobacco: Never Smokeless Tobacco: Never Sex and Gender Information Value Date Recorded Sex Assigned at Not on file Legal Sex Male 3:48 PM WELDER 2ND SHIFT Gender Identity Not on file Sexual Orientation Not on file COVID-19 Exposure Response Date Recorded In the last month, have you been in contact with someone who was confirmed or suspected to have Coronavirus / COVID-19? No / Unsure 12/22/2021 4:00 PM WELDER 2ND SHIFT documented as of this encounter Plan of Treatment Upcoming Encounters Date Type Department Care Team (Late st Contact Info) Description 11/07/2025 8:40 AM WELDER 2ND SHIFT Office Visit [facility] Medicine [address] [phone] Catalino Melgoza MD [address] [phone] documented as of this encounter Visit Diagnoses Not on filedocumented in this encounter Care Teams Industrial Tractor Driver Relationship Specialty Start Date End Date Catalino Melgoza MD [address] [place] [address] PCP - General Family Practice 12/31/22 documented as of this encounter
--- NOTE | 2025-06-10 10:41 | ED_ITS ---
HPI - Chest Pain 2 General: Chief Complaint: Chest Pain Stated Complaint: CP Time Seen by Provider: 06/10/25 10:25 History of Present Illness: 61-year-old male presents emergency room complaining of chest pain that woke him up from sleep. Left-sided chest radiating to his jaw. He was given aspirin nitro and route after the nitro at sublingual and an inch of Nitropaste he reports pain is gone from a 10 of 10 to a 5 out of 10. Initial EKG did not show any acute changes. Procedure note reviewed in the chart. Showed 80 to 90% stenosis Ostial PDA which was stented previously. Associated symptoms: Deny abdominal pain, dyspnea or fever(s) Related Data Home Medications ?Medication ?Instructions ?Recorded ?Confirmed mupirocin 2 % topical ointment 1 applic topical DAILY PRN Skin 06/10/25 06/10/25 Irritation triamcinolone acetonide 0.1 % 1 applic mucous membrane BID 06/10/25 06/10/25 dental paste Previous Rx's ?Medication ?Instructions ?Recorded nitroglycerin 0.4 mg sublingual 0.4 mg sublingual Q5M PRN Chest 06/05/25 tablet Pain 30 days #30 tabs aspirin 81 mg tablet,delayed 81 mg PO DAILY #90 tabs 0 06/09/25 release atorvastatin 40 mg tablet 40 mg PO BEDTIME #90 tabs clopidogrel 75 mg tablet 75 mg PO DAILY #90 tabs 05/24 06/17 isosorbide mononitrate 30 mg 30 mg PO DAILY #90 tabs 0 06/09/25 tablet,extended release 24 hr metoprolol tartrate 25 mg tablet 12.5 mg (1/2 x 25 mg) PO 06/09/25 BID@0900,2100 #90 tabs Allergies Allergy/AdvReac Type Severity Reaction Status Date / Time Pork/Porcine Containing Allergy ALGY-Hives Verified 06/09/25 08:00 Products Review of Systems 2 Const: Denies: fever(s) or chills Card: Reports: chest pain Resp: Denies: dyspnea GI: Denies: abdominal pain : Denies: dysuria, urinary frequency or urinary urgency Musc: Denies: neck pain or back pain Skin/Breast: Denies: rash PFSH ED 2 PFSH: Medical History No pertinent past medical history Family History Father CAD (coronary artery disease) Brother CAD (coronary artery disease) Social History Smoking and tobacco/nicotine status: never used tobacco/nicotine Alcohol intake: never Substance/Drug Use: never Physical Exam 2 Const: COMMON NORMALS: no acute distress GENERAL APPEARANCE: cooperative and comfortable ORIENTATION/CONSCIOUSNESS: Yes awake, Yes oriented to person, Yes oriented to place and Yes oriented to time HENMT: COMMON NORMALS: normocephalic, atraumatic and hearing grossly normal bilaterally HEAD & SCALP: normocephalic and atraumatic Resp: COMMON NORMALS: normal respiratory effort, No retractions, No use of accessory muscles and clear to auscultation bilaterally AUSCULTATION: clear to auscultation bilaterally Cardio: COMMON NORMALS: regular rate, regular rhythm and No murmurs present (Cardio) RATE: regular rate RHYTHM: regular rhythm GI: COMMON NORMALS: Soft to palpation and No hepatosplenomegaly present A USCULTATION: Yes normoactive bowel sounds PALPATION: Yes Soft to palpation, No Tenderness to palpation present (GI), No Guarding due to palpation present (GI) and Yes No hepatosplenomegaly present Extremity: COMMON NORMALS: normal to inspection, capillary refill normal, no clubbing, cyanosis or edema, no calf tenderness and no pedal edema Neuro: SENSORIUM/ORIENTATION: Yes oriented to person, Yes oriented to place and Yes oriented to time Skin: COMMON NORMALS: no rashes or lesions noted GENERAL SKIN EXAM: no rashes or lesions noted Course 2 Vital Signs: Vital signs: Vital Signs Temperature 98.3 F 06/10/25 13:05 Pulse Rate 65 06/10/25 13:05 Respiratory Rate 23 H 06/10/25 13:05 Blood Pressure 153/93 06/10/25 13:05 Pulse Oximetry 96 06/10/25 13:05 Oxygen Delivery Me thod Room Air 06/10/25 13:46 MDM - Chest Pain Medical Decision Making Recent stent presenting with a second episode of chest pain since he had a stent very concerning relieved by nitro occurred at rest. Discussed with cardiology will admit initial EKG does not show any acute changes first troponin unremarkable. Discussed with hospitalist and with patient. Orders written Medical Records I reviewed the patient's medical records. Lab Data I reviewed the patient's lab results. 06/10/25 11:02 06/10/25 11:02 Radiology Impressions Chest X-Ray 06/10/25 10:25 IMPRESSION: Stable chest without acute abnormality. Laboratory Results WBC 6.66 10^3/uL (3.29-11.43) 06/10/25 11:02 RBC 5.16 10^6/uL (3.85-5.65) 06/10/25 11:02 Hgb 15.20 g/dL (11.27-16.99) 06/10/25 11:02 Hct 45.2 % (37-53) 06/10/25 11:02 MCV 87.6 fl (82-101) 06/10/25 11:02 MCH 29.5 pg (27-33) 06/10/25 11:02 MCHC 33.6 g/dL (30-55) 06/10/25 11:02 RDW 12.8 % (12.1-15.1) 06/10/25 11:02 Plt Count 218 10^3/cmm (157-399) 06/10/25 11:02 MPV 9.4 fL (7.4-10.4) 06/10/25 11:02 Neut % (Auto) 64.9 % 06/10/25 11:02 Lymph % (Auto) 24.8 % 06/10/25 11:02 Fallon % (Auto) 8.0 % 06/10/25 11:02 Eos % (Auto) 1.1 % 06/10/25 11:02 Baso % (Auto) 0.6 % 06/10/25 11:02 Neut # (Auto) 4.33 10^3/uL (1.8-7.7) 06/10/25 11:02 Lymph # (Auto) 1.7 10^3/uL (0.8-4.8) 06/10/25 11:02 Fallon # (Auto) 0.5 10^3/uL (0.2-0.9) 06/10/25 11:02 Eos # (Auto) 0.1 10^3/uL (0.0-0.8) 06/10/25 11:02 Baso # (Auto) 0.0 10^3/uL (0.0-0.1) 06/10/25 11:02 Nucleated RBC % (auto) 0 % 06/10/25 11:02 Nucleated RBCs # 0.0 /100WBC 06/10/25 11:02 D-Dimer 0.61 ug/mLFEU (0-0.59) H 06/10/25 11:02 Sodium 138 mmol/L (136-145) 06/10/25 11:02 Potassium 4.2 mmol/L (3.5-5.1) 06/10/25 11:02 Chloride 100 mmol/L (98-107) 06/10/25 11:02 Carbon Dioxide 24 mmol/L (22-29) 06/10/25 11:02 Anion Gap 18.2 (5-19) 06/10/25 11:02 BUN 10 mg/dL (8-23) 06/10/25 11:02 Creatinine 0.9 mg/dL (0.7-1.2) 06/10/25 11:02 GFR Calculation 85.2 mL/min (90-130) L 06/10/25 11:02 Glucose 114 mg/dL (65-115) 06/10/25 11:02 Calculated Osmolality 286 mOsm/kg (285-295) 06/10/25 11:02 Calcium 9.2 mg/dL (8.5-10.5) 06/10/25 11:02 Total Bilirubin 0.5 mg/dL (0.15-1.2) 06/10/25 11:02 AST 20 U/L (0-40) 06/10/25 11:02 ALT 24 U/L (0-41) 06/10/25 11:02 Alkaline Phosphatase 106 U/L (40-130) 06/10/25 11:02 Troponin T Baseline 11 ng/L (0-15) 06/10/25 11:02 Total Protein 7.2 g/dL (6.6-8.7) 06/10/25 11:02 Albumin 4.5 g/dL (3.5-5.2) 06/10/25 11:02 Globulin 2.7 g/dL (1.3-4.6) 06/10/25 11:02 All radiology interpretation(s) finalized by discharge Discharge Plan Discharge Patient Disposition: Admitted As Inpatient Admit Provider: Iza Larson Clinical Impression: Unstable angina, History of coronary artery disease Condition: Stable Coding Level of Care Code ED Medicine Tech for Tarun Saez
[2025-06-10 11:07] LABS: Hematocrit 45.2 % (37-53); Hemoglobin 15.20 g/dL (11.27-16.99); Mean Corpuscular HGB Conc 33.6 g/dL (30-55); Mean Corpuscular Hemoglobin 29.5 pg (27-33); Mean Corpuscular Volume 87.6 fl (82-101); Nucleated Red Blood Cells % 0 %; Platelet Count 218 10^3/cmm (157-399); Red Blood Count 5.16 10^6/uL (3.85-5.65); White Blood Count 6.66 10^3/uL (3.29-11.43)
[2025-06-10] MEDS: morphine 4 mg/mL SDV 1 mL IVP ×3 (11:24→23:23)
[2025-06-10] MEDS: ondansetron 2 mg/ML SDV 2 mL 4 MG IVP (11:24)
[2025-06-10 11:25] LABS: Troponin(5th) Baseline 11 ng/L (0-15)
[2025-06-10 11:26] LABS: Alanine Aminotransferase 24 U/L (0-41); Albumin Level 4.5 g/dL (3.5-5.2); Alkaline Phosphatase 106 U/L (40-130); Anion Gap 18.2 (5-19); Aspartate Amino Transferase 20 U/L (0-40); Blood Urea Nitrogen 10 mg/dL (8-23); Calcium 9.2 mg/dL (8.5-10.5); Carbon Dioxide 24 mmol/L (22-29); Chloride 100 mmol/L (98-107); Creatinine Clr Calc Pharmacy 86.9663; Globulin 2.7 g/dL (1.3-4.6); Glucose 114 mg/dL (65-115); Osmolality Calculated 286 mOsm/kg (285-295); Potassium 4.2 mmol/L (3.5-5.1); Sodium 138 mmol/L (136-145); Total Protein 7.2 g/dL (6.6-8.7)
--- NOTE | 2025-06-10 12:25 | ECG_ITS ---
[facility]: 2025-06-10 Pat Name: Eliecer Ngo Department: Room: 108 Gender: Male Division Traffic Superintendent: : 1960 Requested By: Johnathan Villanueva Order Number: [id number] Reading MD: CORNELL KHAN Measurements Intervals Collins Rate: 70 P: 47 CT: 161 QRS: 5 QRSD: 80 T: 8 QT: 387 QTc: 418 Interpretive Statements SINUS RHYTHM Compared to ECG 06/10/2025 10:27:52 No significant changes Electronically Signed On 06-11-2025 16:11:03 CDT by CORNELL KHAN [email or web address]
--- NOTE | 2025-06-10 12:59 | PM.HP ---
Providers/Chief Complaint Admitting Physician: Iza Larson MD Chief Complaint: CP History of Present Illness Eliecer Ngo is a 64 year old male with past medical history of congenital heart/lung disease?, Obesity, hypertension, extensive family history of CAD, recent PCI and discharged on 06/05 presented to the hospital for complaint of chest pain. He states that he has seen his primary care doctor, had an ER visit, seen cardiology yesterday for chest pain. He states that he had a stent placed about 10 days ago and since then has been having chest pain radiating into his left arm and jaw. He states that this happened again today and therefore he called EMS. They told him to chew 4 aspirins. He also took 5 nitro tablets which finally relieved the pain. He said when he saw cardiology yesterday they had a suspicion of blood clot in his lung and asked him to go to the ER however he states he did not come yesterday. He states his chest hurts when he takes a deep breath and is reproduced with palpation however at times he is sitting comfortably and the pain is still there. He describes it almost as a spasm in the left arm and jaw area. At this moment he denies chest pain. He has a nitro patch in place. He also stated that on his previous hospitalization his troponins and EKG were not indicating heart disease however because he was having continued chest pain that ended up putting a stent in . Denies shortness of breath, nausea vomiting at this time. Medications/Allergies Home Medications ?Medication ?Instructions ?Recorded ?Confirmed ?Last Taken ?Type nitroglycerin 0.4 mg sublingual 0.4 mg sublingual Q5M PRN Chest 06/05/25 06/10/25 06/10/25 Rx tablet Pain 30 days #30 tabs aspirin 81 mg tablet,delayed 81 mg PO DAILY #90 tabs 06/09/25 06/10/25 06/10/25 Rx release atorvastatin 40 mg tablet 40 mg PO BEDTIME #90 tabs 06/09/25 06/10/25 06/09/25 Rx clopidogrel 75 mg tablet 75 mg PO DAILY #90 tabs 06/09/25 06/10/25 06/09/25 Rx isosorbide mononitrate 30 mg 30 mg PO DAILY #90 tabs 06/09/25 06/10/25 06/09/25 Rx tablet,extended release 24 hr metoprolol tartrate 25 mg tablet 12.5 mg (1/2 x 25 mg) PO 06/09/25 06/10/25 06/09/25 Rx BID@0900,2100 #90 tabs mupirocin 2 % topical ointment 1 applic topical DAILY PRN Skin 06/10/25 06/10/25 Unknown History Irritation triamcinolone acetonide 0.1 % 1 applic mucous membrane BID 06/10/25 06/10/25 06/09/25 History dental paste Allergies Allergy/AdvReac Type Severity Reaction Status Date / Time Pork/Porcine Containing Allergy ALGY-Hives Verified 06/09/25 08:00 Products PFSH Acute PFSH: Medical History (Updated 06/10/25 @ 15:28 by Eve Rodriguez MD) No pertinent past medical history Family History Father CAD (coronary artery disease) Brother CAD (coronary artery disease) Social History Smoking and tobacco/nicotine status: never used tobacco/nicotine Alcohol intake: never Substance/Drug Use: never Vitals/I&O/Wt Last Vital Signs Temp 98.2 F 06/10/25 10:27 Pulse 63 06/10/25 12:22 Resp 17 06/10/25 11:24 BP 132/92 06/10/25 12:22 Pulse Ox 92 06/10/25 12:22 O2 Del Method Room Air 06/10/25 11:32 Weight last 48 hrs Weight 90.718 kg Physical Exam Narrative: General: Alert oriented x3, patient seen sitting up in bed appearing comfortable, Nitropatch in place. Vitals are stable. HEENT: Normocephalic, atraumatic, EOMI, breathing room air. Cardio: Regular rate rhythm, normal S1-S2, chest pain reproducible with palpation Respiratory: Clear to auscultation bilaterally no wheezes no rhonchi. GI: Abdomen soft, nontender, nondistended, bowel sounds + Extremities: No edema bilateral lower extremities Data 06/10/25 11:02 06/10/25 11:02 A&P Assessment and plan 1. Chest pain, unspecified type: 2. History of coronary artery disease: 3. Coronary artery disease with recent acute coronary syndrome and history of coronary revascularization: Plan: #Chest pain atypical #Coronary artery disease status post PCI June 04, 2025 #History of congenital heart disease? #History of pulmonary embolism in the past ? EKG shows no acute ischemic changes ? Patient's chest pain is somewhat atypical however he also has chest pain not upon exertion. Nothing makes it better or worse. ? He has been to cardiology, ER, his primary care doctor since he had the coronary angiogram and had his stent placed. He states the pain has been persistent since then. It comes and goes. His presentation is very nonspecific. D-dimer 0.6. My suspicion for PE is very low at this time. He is not tachycardic however also is on metoprolol at home. He is not hypoxic. We will still go ahead and check a CTA chest to rule out PE. Patient is allergic to Lovenox and heparin secondary to poor products. We will hold off on DVT prophylaxis at this time. I will wait for cardiology evaluation and input before making further decisions. ? We can continue Nitropaste for now however I do not believe that this is unstable angina. ? He may benefit from a repeat coronary angiogram however I will leave that up to cardiology to decide. ? We will place on cardiac telemetry continue aspirin Plavix atorvastatin Imdur metoprolol tartrate twice daily and admit to [facility] for observation. - Discussed with Dr. Rodriguez at length. He will evaluate patient and we will decide next course of management. Full code DVT prophylaxis: SCDs. PDMP PDMP Reviewed: Not Reviewed Attestations Medical Necessity Statement*: atypical chest pain Diagnoses Chest pain, unspecified type R07.9 Chest pain type: unspecified History of coronary artery disease Z86.79 Coronary artery disease with recent acute coronary syndrome and history of coronary revascularization I25.10; I24.9; Z98.61
--- NOTE | 2025-06-10 13:09 | USCV_ITS ---
Eliecer Ngo Age: 64 Gender: M : 1960 Exam Date: 06/10/2025 14:34 Ordering Phys: Iza Larson MD Technologist: [place] [facility] [place]: chest pain BP: / HR: Rhythm: Sinus Technical Quality: Adequate MEASUREMENTS (Male / Female) Normal Values 2D ECHO LV Diastolic Diameter PLAX 4.7 cm 4.2 - 5.9 / 3.9 - 5.3 cm IVS Diastolic Thickness 1.3 cm 0.6 - 1.0 / 0.6 - 0.9 cm IVS Systolic Thickness 1.6 cm LVPW Diastolic Thickness 1.1 cm 0.6 - 1.0 / 0.6 - 0.9 cm LVPW Systolic Thickness 1.6 cm LVOT Diameter 2.1 cm LV Ejection Fraction 2D Teich 67.2 % LV Ejection Fraction MOD 4C 51.7 % LV Ejection Fraction MOD 2C 60.5 % LV Ejection Fraction 2C AL 61.1 % LA Diameter 3.4 cm RA Systolic Volume 4C AL 36.7 ml RA Systolic Volume 4C MOD 34.8 ml Aorta at Sinotubular Diameter 2.9 cm M-MODE LA Ao Ratio MM 1.1 AV Cusp Separation MM 2.2 cm FINDINGS Left Ventricle Normal LV size and ejection fraction 50 to 55%. Relative hypokinesia of the septum and inferior wall segments. Right Ventricle The right ventricle is normal in size and function. Right Atrium The right atrium is normal in size. Left Atrium The left atrium is normal in size. Mitral Valve No gross abnormalities noted Aortic Valve Thickened aortic valve. Tricuspid Valve No gross abnormalities noted Pulmonic Valve Pulmonic valve not well visualized. Pericardium Normal pericardium without effusion. Aorta Normal aortic annulus size. IVC Inferior vena cava not visualized. CONCLUSIONS Normal LV size and ejection fraction 50 to 55%. Relative hypokinesia of the septum and inferior wall segments. Normal cardiac chamber sizes. Thickened aortic valve. There is no pericardial effusion. There are no intracardiac masses. Compared to the study from a 06/02/2025, there may not be a significant change Dr Eve Rodriguez MD [facility] (Electronically Signed) Final Date: 10 June 2025 17:11 S
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
--- NOTE | 2025-06-10 15:35 | CTR_ITS ---
PROCEDURE INFORMATION: Exam: CTA Chest With Contrast Exam date and time: 06/10/2025 3:54 PM Age: 64 years old Clinical indication: Pain; Chest pressure; Additional info: Chest pain, R/O pe TECHNIQUE: Imaging protocol: Computed tomographic angiography of the chest with contrast. Exam focused on the arteries. 3D rendering (Not supervised by radiologist): MIP and/or 3D reconstructed images were created by the technologist. Radiation optimization: All CT scans at this facility use at least one of these dose optimization techniques: automated exposure control; mA and/or kV adjustment per patient size (includes targeted exams where dose is matched to clinical indication); or iterative reconstruction. Contrast material: OMNI 350; Contrast volume: 76 ml; Contrast route: INTRAVENOUS (IV); COMPARISON: CT angio chest PE protcl [id number] 06/02/2025 7:01 PM RADIATION DOSE METRICS: Total DLP (mGy-cm): 463.09 FINDINGS: Pulmonary arteries: Normal. No pulmonary emboli. Aorta: The ascending thoracic aorta is mildly dilated measuring 4.2 cm in maximal dimension unchanged when compared to prior exam. The descending thoracic aorta is more normal in caliber. There is calcified plaque involving the aorta and coronary vessels. Lungs: There is linear atelectasis or scarring at the right lung base. No consolidated infiltrates are appreciated. No lung nodules or masses are identified. Pleural spaces: Unremarkable. No pneumothorax. No pleural effusion. Heart: Unremarkable. No cardiomegaly. No pericardial effusion. Lymph nodes: There are a few small mediastinal lymph nodes. Diaphragm: There is elevation of the right hemidiaphragm. Bones/joints: There are partially imaged postoperative changes involving the cervical spine. Soft tissues: Unremarkable. Other findings: Small hypodense lesion is seen within the prevascular space measuring 2 cm in size unchanged. CT/CT angio chest PE protcl [id number] IMPRESSION: 1. Elevation of the right hemidiaphragm with linear scarring or atelectasis at the right lung base. 2. 2 cm hypodense lesion possibly lymph node within the anterior mediastinum unchanged.
[2025-06-10 15:50] LABS: Troponin 5 2HR 8.77 ng/L (0-15)
[2025-06-10 15:51] LABS: Troponin 5 2HR Delta -2.23 ABS# (0-10)
[2025-06-10] MEDS: iohexol 350 mg/mL 500 mL Btl (per mL) IV (15:59)
--- NOTE | 2025-06-10 16:25 | ECG_ITS ---
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
--- OUTSIDE RECORDS SUMMARY | 2025-06-10 17:51 | XMS_ITS | Encounter Summary ---
Author Organization [facility] Address 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 documented as of this encounter Plan of Treatment Upcoming Encounters Date Type Department Care Team (Late st Contact Info) Description 11/07/2025 8:40 AM CHEMICAL TEST ENGINEER Office Visit [facility] Medicine [address] [phone] Catalino Melgoza MD [address] [phone] documented as of this encounter Visit Diagnoses Not on filedocumented in this encounter Care Teams French Polisher Relationship Specialty Start Date End Date Catalino Melgoza MD [address] [place] [phone] PCP - General Family Practice 12/31/22 documented as of this encounter
--- OUTSIDE RECORDS SUMMARY | 2025-06-10 17:51 | XMS_ITS | Encounter Summary ---
Author Organization [facility] Address [address] [place] [address] Care Team Providers Care Assistant Center Director Name Role Phone Catalino Melgoza MD Primary Care Provider [phone] Encounter Details Date Type Department Care Team (Late st Contact Info) Description 06/07/[address] [phone] Provider, Abstract NO ADDRESS ON FILE Social History Tobacco Use Types Packs/Day Years Used Date Smoking Tobacco: Never Smokeless Tobacco: Never Alcohol Use Standard Drinks/Week Comments Never 0 (1 standard drink = 0.6 oz pur e alcohol) Sex and Gender Information Value Date Recorded Sex Assigned at Not on file 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 Gender Identity Not on file Sexual Orientation Not on file documented as of this encounter Plan of Treatment Upcoming Encounters Date Type Department Care Team (Late st Contact Info) Description 11/07/2025 8:40 AM CLINICAL SCIENCES PROFESSOR Office Visit [address] [phone] Catalino Melgoza MD [facility] [address] [phone] documented as of this encounter Visit Diagnoses Not on filedocumented in this encounter Care Teams Assistant Center Director Relationship Specialty Start Date End Date Catalino Melgoza MD [address] [place] [phone] PCP - General Family Practice 12/31/22 documented as of this encounter
--- OUTSIDE RECORDS SUMMARY | 2025-06-10 17:51 | XMS_ITS | Encounter Summary ---
Author Organization [facility] Address [address] [place] [address] Care Team Providers Care Pediatric Acute Care Unit Nurse Name Role Phone Catalino Melgoza MD Primary Care Provider [phone] [phone] Reason for Visit * Reason Comments Hospital Follow Up Encounter Details Date Type Department Care Team (Late st Contact Info) Description 06/07/2025 Telephone [facility] Medicine [address] [phone] Ana Alcantar NP [address] [place] [phone] Hospital Follow Up Social History Tobacco Use Types Packs/Day Years Used Date Smoking Tobacco: Never Smokeless Tobacco: Never Alcohol Use Standard Drinks/Week Comments Never 0 (1 standard drink = 0.6 oz pur e alcohol) Sex and Gender Information Value Date Recorded Sex Assigned at Not on file Legal Sex Male 3:48 PM VAULT MANAGER Gender Identity Not on file Sexual Orientation Not on file documented as of this encounter Miscellaneous Notes * Telephone Encounter - Ale Lindo - 06/07/2025 3:40 PM CDT Patient was seen 06/07/2025 for his hospital follow up. Ale Lindo, 06/07/2025 3:41 PM * Telephone Encounter - Ariana Spencer - 06/07/2025 9:51 AM CDT Copied from [facility] #[id number]. Topic: Established Patient Care >> Jun 07, 2025 9:45 AM Ariana Traore wrote: Is the patient established with a [facility] provider? Yes, select appropriate option in Discharge Facility SmartList Caller Name: Eliecer Ngo Callback Number: No relevant phone numbers on file. Call Notes: chest pain, stent placed. Scheduled for hospital f/u from [facility] on 06.07.20. Discharged - 06.06.25 Dx: Chest pain Patient is Low Risk Where was the patient discharged from? Hospital Is there availability to schedule the patient within 5 calendar days of discharge? Yes, in person appointment available Patient Access Instructions 1. Enter Appointment Notes as followed based on where patient was discharged from. If discharged from a [facility] - [facility] discharge If discharged from another hospital - Hospital name, date of discharge, informed patient to sign DINA 2. Link appointment in attachment section below. 3. Select Appointment Scheduled Resolve Reason and Click Close CRM. documented in this encounter Plan of Treatment Upcoming Encounters Date Type Department Care Team (Late st Contact Info) Description 11/07/2025 8:40 AM VAULT MANAGER Office Visit [facility] Family Medicine [address] [phone] Catalino Melgoza MD [address] [phone] documented as of this encounter Visit Diagnoses Not on filedocumented in this encounter Care Teams Pediatric Acute Care Unit Nurse Relationship Specialty Start Date End Date Catalino Melgoza MD [address] [place] [address] PCP - General Family Practice 12/31/22 documented as of this encounter
--- OUTSIDE RECORDS SUMMARY | 2025-06-10 17:51 | XMS_ITS | Encounter Summary ---
Author Organization [facility] Address [address] [place] [address] Care Team Providers Care Web Database Developer Name Role Phone Catalino Melgoza MD Primary Care Provider [phone] [phone] Encounter Details Date Type Department Care Team (Late st Contact Info) Description 06/07/[address] [phone] Provider, Abstract NO ADDRESS ON FILE Social History Tobacco Use Types Packs/Day Years Used Date Smoking Tobacco: Never Smokeless Tobacco: Never Alcohol Use Standard Drinks/Week Comments Never 0 (1 standard drink = 0.6 oz pur e alcohol) Sex and Gender Information Value Date Recorded Sex Assigned at Not on file Legal 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 Gender Identity Not on file Sexual Orientation Not on file documented as of this encounter Plan of Treatment Upcoming Encounters Date Type Department Care Team (Late st Contact Info) Description 11/07/2025 8:40 AM HYDRAULIC DREDGE OPERATOR Office Visit [address] [phone] Catalino Melgoza MD [facility] [address] [phone] documented as of this encounter Visit Diagnoses Not on filedocumented in this encounter Care Teams Web Database Developer Relationship Specialty Start Date End Date Catalino Melgoza MD [address] [place] [address] PCP - General Family Practice 12/31/22 documented as of this encounter
--- OUTSIDE RECORDS SUMMARY | 2025-06-10 17:51 | XMS_ITS | Encounter Summary ---
Author Organization [facility] Address [address] [place] [address] Care Team Providers Care Curriculum And Instruction Director Name Role Phone Catalino Melgoza MD Primary Care Provider +1 [phone] Encounter Details Date Type Department Care Team (Late st Contact Info) Description 12/29/2021 Digital Self COVID-1 9 Monitoring [facility] ABSTRACTION Provider, Abstract NO ADDRESS ON FILE Social History Tobacco Use Types Packs/Day Years Used Date Smoking Tobacco: Never Smokeless Tobacco: Never Sex and Gender Information Value Date Recorded Sex Assigned at Not on file Legal Sex Male 3:48 PM QUALITY AND RELIABILITY ENGINEER Gender Identity Not on file Sexual Orientation Not on file COVID-19 Exposure Response Date Recorded In the last month, have you been in contact with someone who was confirmed or suspected to have Coronavirus / COVID-19? No / Unsure 12/22/2021 4:00 PM QUALITY AND RELIABILITY ENGINEER documented as of this encounter Plan of Treatment Upcoming Encounters Date Type Department Care Team (Late st Contact Info) Description 11/07/2025 8:40 AM QUALITY AND RELIABILITY ENGINEER Office Visit [facility] Medicine [address] [phone] Catalino Melgoza MD [address] [phone] documented as of this encounter Visit Diagnoses Not on filedocumented in this encounter Care Teams Curriculum And Instruction Director Relationship Specialty Start Date End Date Catalino Melgoza MD [address] [place] [address] PCP - General Family Practice 12/31/22 documented as of this encounter
--- OUTSIDE RECORDS SUMMARY | 2025-06-10 17:51 | XMS_ITS | Clinical Summary ---
Author Organization [facility] Address [address] [address] Phone Care Team Providers Care Integration Assistant Name Role Phone Catalino Melgoza MD Primary Care Provider [phone] [phone] Allergies Active Allergy Reactions Criticality Noted Date [...] Description 06/07/2025 11:00 AM CDT Office Visit [address] [phone] Ana Alcantar NP Hospital discharge follow-up (Primary Dx); Oral lesion; Blisters of multiple sites; Chest pain, unspecified type; Morbid obesity ([facility]/H[facility]) 06/07/[address] [address] Provider, Abstract 06/07/[address] [address] Provider, Abstract 06/07/[address] [phone] Ana Alcantar NP Hospital Follow Up 05/17/2025 External Device Data [facility] ABSTRACTION Provider, Abstract 05/11/2025 External Device Data [facility] ABSTRACTION Provider, Abstract 05/10/2025 External Device Data [facility] ABSTRACTION Provider, Abstract 04/15/2025 3:45 PM CDT - 04/15/2025 11:59 PM CDT Hospital Encounter [facility] [place] [address] [phone] Ambulance[facility] Discharge Disposition: [...] on file Legal Sex Male 3:48 PM SUPERVISOR CABINETMAKER Gender Identity Not on file Sexual Orientation [...] st Contact Info) Description 11/07/2025 8:40 AM SUPERVISOR CABINETMAKER Office Visit [facility] Family Medicine [place] [address] [phone] Catalino Melgoza MD [address] [phone] Health Maintenance Due Date Last [...] YEAR (AUTO ORDER) 10/09/2024 10/09/2023 Medicare Advantage (OR) Prev entative Visit/Annual Wellness Visit 11/24/2024 11/13/2022 INFLUENZA VACCINE (#1) 2025 11/13/2022 Pre-Diabetes and Diabetes Screening 07/02/202707/02 COLORECTAL CANCER SCREENING (AUTO ORDER) 12/17/2032 12/17/2022, 12/17/2022 COLORECTAL SCREENING 12/17/2032 12/17/2022, 12/17/19 Colorectal Cancer Screening (AUTO ORDER) 12/17/2032 Colorectal Cancer Screening 12/17/2032 Procedures Procedure Name Priority Date/Time Associated Diagnosis Comments CO ECG ROUTINE ECG W/LEAST 12 LDS W/I&R Routine 06/07/2025 11:00 AM CDT Chest pain, unspecified type HEMOGLOBIN A1C Routine 07/02/2024 9:58 AM CDT Wellness examination ENDOSCOPY, COLON, DIAGNOSTIC Stat 12/17/2022 Bleeding per rectum History of colon polyps from Last 3 Months or Most Recently Relevant to Health Maintenance Results * CO ECG ROUTINE ECG W/LEAST 12 LDS W/I&R (06/07/2025 11:00 AM CDT) [facility] - 06/07/2025 11:00 AM CDT Catalino Melgoza [...] findings Clinical impression: normal ECG Ana Alcantar DEPARTMENT DIRECTOR ECG ORDERABLES Edited Result - Final [facility]# [id number] [address] [place] [address] * (ABNORMAL) HEMOGLOBIN A1C (07/02/2024 9:58 AM CDT) HEMOGLOBIN A1C 6.3(H) <5.7 % of total Hgb [facility] Comment: For someone without known diabetes, [...] children. ESTIMATED AVERAGE GLUCOSE (MG/DL) 134 mg/dL [facility] ESTIMATED AVERAGE GLUCOSE (MMOL/L) 7.4 mmol/L [facility] Comment: This test was performed on the Jennifer jessica c503 platform. Effective 02/09/24, a change in test platforms from the Rosales Powder Cutting Operator to the Jennifer jessica c503 may have shifted HbA1c results compared to historical results. Based on laboratory validation testing conducted at [facility], the Jennifer platform relative to the Rosales [...] platforms is not recommended. Test Performed at: [facility] [address] [facility] [address] Clarissa Joseph MD Blood 07/02/2024 9:58 AM CDT 07/03/2024 4:54 AM CDT Ana Alcantar DEPARTMENT DIRECTOR CHEMISTRY ORDERABLES Final Res ult [facility] [phone] [facility] [address] [address] [address] * ENDOSCOPY, COLON, DIAGNOSTIC (12/17/2022) Loreto Pearson Sheridan PRISM INSPECTOR GI PROCEDURE ORDERABLES Final Result from Last 3 Months or Most Recently Relevant to Health Maintenance Insurance [facility] [id number] [facility] [place] [address] Care Teams Integration Assistant Relationship Specialty Start Date End Date Catalino [place] [address] PCP - General Family Practice 12/31/22
--- OUTSIDE RECORDS SUMMARY | 2025-06-10 17:51 | XMS_ITS | Encounter Summary ---
Author Organization [facility] Address [address] [place] [address] Care Team Providers Care Disaster Recovery Specialist Name Role Phone Catalino Melgoza MD Primary Care Provider [phone] [phone] Encounter Details Date Type Department Care Team (Late st Contact Info) Description 12/29/2021 Digital Self COVID-1 9 Monitoring [facility] ABSTRACTION Provider, Abstract NO ADDRESS ON FILE Social History Tobacco Use Types Packs/Day Years Used Date Smoking Tobacco: Never Smokeless Tobacco: Never Sex and Gender Information Value Date Recorded Sex Assigned at Not on file Legal Sex Male 3:48 PM HEALTH CARE TECHNICIAN Gender Identity Not on file Sexual Orientation Not on file COVID-19 Exposure Response Date Recorded In the last month, have you been in contact with someone who was confirmed or suspected to have Coronavirus / COVID-19? No / Unsure 12/22/2021 4:00 PM HEALTH CARE TECHNICIAN documented as of this encounter Plan of Treatment Upcoming Encounters Date Type Department Care Team (Late st Contact Info) Description 11/07/2025 8:40 AM HEALTH CARE TECHNICIAN Office Visit [facility] Medicine [address] [phone] Catalino Melgoza MD [address] [phone] documented as of this encounter Visit Diagnoses Not on filedocumented in this encounter Care Teams Disaster Recovery Specialist Relationship Specialty Start Date End Date Catalino Melgoza MD [address] [place] [address] PCP - General Family Practice 12/31/22 documented as of this encounter
--- OUTSIDE RECORDS SUMMARY | 2025-06-10 17:51 | XMS_ITS | Encounter Summary ---
Author Organization [facility] Address [address] [place] [address] Care Team Providers Care Ob/Gyn Nurse Name Role Phone Catalino Melgoza MD Primary Care Provider [phone] [phone] Encounter Details Date Type Department Care Team (Late st Contact Info) Description 12/31/2021 Digital Self COVID-1 9 Monitoring [facility] ABSTRACTION Provider, Abstract NO ADDRESS ON FILE Social History Tobacco Use Types Packs/Day Years Used Date Smoking Tobacco: Never Smokeless Tobacco: Never Sex and Gender Information Value Date Recorded Sex Assigned at Not on file Legal Sex Male 3:48 PM STERILE PROC TECH Gender Identity Not on file Sexual Orientation Not on file COVID-19 Exposure Response Date Recorded In the last month, have you been in contact with someone who was confirmed or suspected to have Coronavirus / COVID-19? No / Unsure 12/22/2021 4:00 PM STERILE PROC TECH documented as of this encounter Plan of Treatment Upcoming Encounters Date Type Department Care Team (Late st Contact Info) Description 11/07/2025 8:40 AM STERILE PROC TECH Office Visit [facility] Medicine [address] [phone] Catalino Melgoza MD [address] [phone] documented as of this encounter Visit Diagnoses Not on filedocumented in this encounter Care Teams Ob/Gyn Nurse Relationship Specialty Start Date End Date Catalino Melgoza MD [address] [place] [address] PCP - General Family Practice 12/31/22 documented as of this encounter
--- OUTSIDE RECORDS SUMMARY | 2025-06-10 17:51 | XMS_ITS | Encounter Summary ---
Author Organization [facility] Address [address] [place] [address] Care Team Providers Care De Icer Installer Name Role Phone Catalino Melgoza MD Primary Care Provider +1 [phone] Encounter Details Date Type Department Care Team (Late st Contact Info) Description 12/31/2021 Digital Self COVID-1 9 Monitoring [facility] ABSTRACTION Provider, Abstract NO ADDRESS ON FILE Social History Tobacco Use Types Packs/Day Years Used Date Smoking Tobacco: Never Smokeless Tobacco: Never Sex and Gender Information Value Date Recorded Sex Assigned at Not on file Legal Sex Male 3:48 PM COMPUTERIZED MACHINE FABRIC CUTTER Gender Identity Not on file Sexual Orientation Not on file COVID-19 Exposure Response Date Recorded In the last month, have you been in contact with someone who was confirmed or suspected to have Coronavirus / COVID-19? No / Unsure 12/22/2021 4:00 PM COMPUTERIZED MACHINE FABRIC CUTTER documented as of this encounter Plan of Treatment Upcoming Encounters Date Type Department Care Team (Late st Contact Info) Description 11/07/2025 8:40 AM COMPUTERIZED MACHINE FABRIC CUTTER Office Visit [facility] Medicine [address] [phone] Catalino Melgoza MD [address] [phone] documented as of this encounter Visit Diagnoses Not on filedocumented in this encounter Care Teams De Icer Installer Relationship Specialty Start Date End Date Catalino Melgoza MD [address] [place] [address] PCP - General Family Practice 12/31/22 documented as of this encounter
--- OUTSIDE RECORDS SUMMARY | 2025-06-10 17:51 | XMS_ITS | Encounter Summary ---
Author Organization [facility] Address [address] [place] [address] Care Team Providers Care Roofer Apprentice Name Role Phone Catalino Melgoza MD Primary Care Provider [phone] [phone] Encounter Details Date Type Department Care Team (Late st Contact Info) Description 12/30/2021 Digital Self COVID-1 9 Monitoring [facility] ABSTRACTION Provider, Abstract NO ADDRESS ON FILE Social History Tobacco Use Types Packs/Day Years Used Date Smoking Tobacco: Never Smokeless Tobacco: Never Sex and Gender Information Value Date Recorded Sex Assigned at Not on file Legal Sex Male 3:48 PM PACS SPECIALIST Gender Identity Not on file Sexual Orientation Not on file COVID-19 Exposure Response Date Recorded In the last month, have you been in contact with someone who was confirmed or suspected to have Coronavirus / COVID-19? No / Unsure 12/22/2021 4:00 PM PACS SPECIALIST documented as of this encounter Plan of Treatment Upcoming Encounters Date Type Department Care Team (Late st Contact Info) Description 11/07/2025 8:40 AM PACS SPECIALIST Office Visit [facility] Medicine [address] [phone] Catalino Melgoza MD [address] [phone] documented as of this encounter Visit Diagnoses Not on filedocumented in this encounter Care Teams Roofer Apprentice Relationship Specialty Start Date End Date Catalino Melgoza MD [address] [place] [address] PCP - General Family Practice 12/31/22 documented as of this encounter
[2025-06-10 20:26] LABS: Troponin 5 6HR 9.31 ng/L (0-15)
[2025-06-10 20:28] LABS: Troponin 5 6HR Delta -1.69 ng/L (0-12)
[2025-06-11] VITALS (7 sets, daily range): BP systolic 119–143; BP diastolic 63–88; PULSE 65–93; RESP 16–26; TEMP 36.4–36.7; O2SAT 93–97
[2025-06-11 04:08] LABS: Hematocrit 41.7 % (37-53); Hemoglobin 14.10 g/dL (11.27-16.99); Mean Corpuscular HGB Conc 33.8 g/dL (30-55); Mean Corpuscular Hemoglobin 30.3 pg (27-33); Mean Corpuscular Volume 89.5 fl (82-101); Nucleated Red Blood Cells % 0 %; Platelet Count 236 10^3/cmm (157-399); Red Blood Count 4.66 10^6/uL (3.85-5.65); White Blood Count 8.07 10^3/uL (3.29-11.43)
[2025-06-11 04:29] LABS: Alanine Aminotransferase 24 U/L (0-41); Albumin Level 4.0 g/dL (3.5-5.2); Alkaline Phosphatase 89 U/L (40-130); Aspartate Amino Transferase 22 U/L (0-40); Blood Urea Nitrogen 9 mg/dL (8-23); Calcium 8.4 mg/dL (8.5-10.5); Carbon Dioxide 26 mmol/L (22-29); Chloride 101 mmol/L (98-107); Creatinine Clr Calc Pharmacy 89.7478; Globulin 2.8 g/dL (1.3-4.6); Glucose 97 mg/dL (65-115); Magnesium 2.2 mg/dL (1.7-2.3); Osmolality Calculated 285 mOsm/kg (285-295); Sodium 138 mmol/L (136-145); Total Protein 6.8 g/dL (6.6-8.7)
[2025-06-11 04:31] LABS: Anion Gap 14.9 (5-19); Potassium 3.9 mmol/L (3.5-5.1)
--- NOTE | 2025-06-11 06:34 | P.PN_ITS ---
Subjective 2 Subjective: Seen this morning. Patient still complains of chest pain. CTA chest was done yesterday however results are still pending. I will call radiology and look into that at this point. D-dimer was 0.64. Clinically have low suspicion of PE however we checked it. I informed the patient we do not have results yet. He states that when he got the morphine he felt better for a little bit however chest pain came back. He is still quite uncomfortable. He states that is radiating down his arm again. Delta troponin -1.69 at 6 hours Vitals/I&O/Wt Last Vital Signs Temp 97.8 F 06/10/25 16:00 Pulse 69 06/11/25 04:41 Resp 19 H 06/11/25 04:41 BP 129/83 06/11/25 04:41 Pulse Ox 97 06/10/25 23:23 O2 Del Method Room Air 06/10/25 16:35 06/10/25 06/10/25 06/11/25 14:59 22:59 06:59 Intake Total 80 / 80 1378.333 / 1458.333 Balance 80 / 80 1378.333 / 1458.333 Weight last 48 hrs Weight 96.388 kg Weight 96.57 kg Weight 90.718 kg Physical Exam 2 Narrative: General: Alert oriented x3, laying in bed at this time states his chest hurts. HEENT: Normocephalic, atraumatic, EOMI, breathing room air. Cardio: Regular rate rhythm, normal S1-S2, chest pain reproducible with palpation Respiratory: Clear to auscultation bilaterally no wheezes no rhonchi. GI: Abdomen soft, nontender, nondistended, bowel sounds + Extremities: No edema bilateral lower extremities Data 06/11/25 03:47 06/11/25 03:47 A&P Assessment and plan 1. Chest pain, unspecified type: 2. History of coronary artery disease: 3. Coronary artery disease with recent acute coronary syndrome and history of coronary revascularization: Plan: #Chest pain atypical #Coronary artery disease status post PCI June 04, 2025 #History of congenital heart disease? #History of pulmonary embolism in the past ? EKG shows no acute ischemic changes ? Patient's chest pain is somewhat atypical however he also has chest pain not upon exertion. Nothing makes it better or worse. ? He has been to cardiology, ER, his primary care doctor since he had the coronary angiogram and had his stent placed. He states the pain has been persistent since then. It comes and goes. His presentation is very nonspecific. D-dimer 0.6. My suspicion for PE is very low at this time. He is not tachycardic however also is on metoprolol at home. He is not hypoxic. We will still go ahead and check a CTA chest to rule out PE. Patient is allergic to Lovenox and heparin secondary to poor products. We will hold off on DVT prophylaxis at this time. I will wait for cardiology evaluation and input before making further decisions. ? We can continue Nitropaste for now however I do not believe that this is unstable angina. ? He may benefit from a repeat coronary angiogram however I will leave that up to cardiology to decide. ? We will place on cardiac telemetry continue aspirin Plavix atorvastatin Imdur metoprolol tartrate twice daily and admit to CSU for observation. - Discussed with Dr. Rodriguez at length. He will evaluate patient and we will decide next course of management. Full code DVT prophylaxis: SCDs. 06/11/2025 CTA chest is still pending Patient has been n.p.o. Still complaining of chest pain Continue morphine. Continue Imdur aspirin Plavix atorvastatin. Await for cardiology assessment today. Likely patient will need an angiogram prior to discharge. Note patient is allergic to pork products and cannot have Lovenox or heparin. Should patient have a PE we will have to have a discussion with him regarding Eliquis versus Coumadin. The patient's current chest pain we will check a another EKG. PDMP PDMP Reviewed: Not Reviewed Attestations 2 Medical Necessity Statement*: atypical chest pain Due to persistent chest pain patient requires another midnight stay tonight. PE needs to be ruled out. Would likely need an angiogram prior to discharge. He is unsafe for discharge at this point due to ongoing chest pain. Cardiology on board. Diagnoses Chest pain, unspecified type R07.9 Chest pain type: unspecified History of coronary artery disease Z86.79 Coronary artery disease with recent acute coronary syndrome and history of coronary revascularization I25.10; I24.9; Z98.61
--- NOTE | 2025-06-11 08:57 | PM.PN ---
Subjective Subjective: Patient continues to have chest pain intermittently which gets worse with the activities. So he is mostly staying in the bed. He had a CT of the chest which revealed a ascending aortic dilatation of 4.2 cm. No evidence of pulmonary embolism. Medications: Medication Review Details: Current Medications Albuterol Sulfate (Albuterol 2.5 Mg/3 Ml Neb) 2.5 mg INHALATION Q6H.RESP PRN PRN Reason: SHORTNESS OF BREATH Aspirin (Aspirin 81 Mg Ec Tablet) 81 mg PO DAILY [facility] Last Admin: 06/11/25 08:03 Dose: 81 mg Atorvastatin Calcium (Atorvastatin 40 Mg Tablet) 40 mg PO BEDTIME [facility] Last Admin: 06/10/25 21:24 Dose: 40 mg Clopidogrel Bisulfate (Clopidogrel 75 Mg Tablet) 75 mg PO DAILY [facility] Last Admin: 06/11/25 08:04 Dose: 75 mg Sodium Chloride (Sodium Chloride 0.9%) 1,000 mls @ 100 mls/hr IV .Q10H [facility] Last Admin: 06/10/25 23:33 Dose: 100 mls/hr Isosorbide Mononitrate (Isosorbide Mononitrate Er 30 Mg Tablet) 30 mg PO DAILY [facility] Last Admin: 06/11/25 08:04 Dose: 30 mg Metoprolol Tartrate (Metoprolol Tartrate 25 Mg Tablet) 12.5 mg PO BID@0900,2100 [facility] Last Admin: 06/11/25 08:02 Dose: 12.5 mg Morphine Sulfate (Morphine 4 Mg/Ml Sdv 1 Ml) 4 mg IVP Q4H PRN PRN Reason: SEVERE PAIN Last Admin: 06/10/25 23:23 Dose: 4 mg Nitroglycerin (Nitroglycerin 0.4 Mg Sublingual Tablet) 0.4 mg SUBLINGUAL Q5M PRN PRN Reason: CHEST PAIN Non-Formulary Medication (Triamcinolone Acetonide) 1 applic MUCOUS MEM BID [facility] Ondansetron HCl (Ondansetron 2 Mg/Ml Sdv 2 Ml) 4 mg IVP Q8H PRN PRN Reason: vomiting, or N/V if npo Pantoprazole Sodium (Pantoprazole Dr 40 Mg Tablet) 40 mg PO DAILY [facility] Last Admin: 06/11/25 08:03 Dose: 40 mg Vitals/I&O/Wt Last Vital Signs Temp 97.7 F 06/11/25 07:45 Pulse 75 06/11/25 08:35 Resp 16 06/11/25 08:35 BP 134/82 06/11/25 07:45 Pulse Ox 97 06/11/25 07:45 O2 Del Method Room Air 06/11/25 08:35 06/10/25 06/11/25 06/11/25 22:59 06:59 14:59 Intake Total 80 / 80 1378.333 / 1458.333 Balance 80 / 80 1378.333 / 1458.333 Weight last 48 hrs Weight 212 lb 8 oz Weight 212 lb 14.4 oz Weight 200 lb Physical Exam Narrative: GENERAL: The patient is alert and oriented times three. Not in any acute distress. HEENT: No significant pallor, icterus or lymphadenopathy.Oral cavity: There are no mucous membrane lesions. NECK: Trachea appears to be central. No masses noted. No JVD or thyromegaly appreciated. RESPIRATORY: Chest is symmetrical. Minimal tenderness in the left costochondral areas. No muscle retraction or any accessory muscle activation.Breath sounds are heard bilaterally. No rales or rhonchi heard. No evidence of any consolidation. BREASTS: Deferred. HEART: The heart sounds are normal. No S3 or S4. No significant murmurs. No pericardial rub ABDOMEN: No vessel pulsations or distention. No tenderness. No organomegaly appreciated. Bowel sounds are normally heard. : Deferred. RECTAL: Deferred. LYMPHATIC: No lymphadenopathy noted in the neck. EXTREMITIES: No edema or cyanosis. No clubbing. MUSCULOSKELETAL: No acute joint deformities or swelling SKIN: There are no significant rashes or ecchymosis NEUROPSYCHIATRIC: The patient is alert and oriented x3. Appears to be in a good mood. No tremors or rigidity noted. Data 06/11/25 03:47 06/11/25 03:47 Other Labs: Laboratory Last Values WBC 8.07 10^3/uL (3.29-11.43) 06/11/25 03:47 RBC 4.66 10^6/uL (3.85-5.65) 06/11/25 03:47 Hgb 14.10 g/dL (11.27-16.99) 06/11/25 03:47 Hct 41.7 % (37-53) 06/11/25 03:47 MCV 89.5 fl (82-101) 06/11/25 03:47 MCH 30.3 pg (27-33) 06/11/25 03:47 MCHC 33.8 g/dL (30-55) 06/11/25 03:47 RDW 12.9 % (12.1-15.1) 06/11/25 03:47 Plt Count 236 10^3/cmm (157-399) 06/11/25 03:47 MPV 9.8 fL (7.4-10.4) 06/11/25 03:47 Neut % (Auto) 61.9 % 06/11/25 03:47 Lymph % (Auto) 27.0 % 06/11/25 03:47 [place] % (Auto) 8.4 % 06/11/25 03:47 Eos % (Auto) 1.5 % 06/11/25 03:47 Baso % (Auto) 0.6 % 06/11/25 03:47 Neut # (Auto) 4.99 10^3/uL (1.8-7.7) 06/11/25 03:47 Lymph # (Auto) 2.2 10^3/uL (0.8-4.8) 06/11/25 03:47 [place] # (Auto) 0.7 10^3/uL (0.2-0.9) 06/11/25 03:47 Eos # (Auto) 0.1 10^3/uL (0.0-0.8) 06/11/25 03:47 Baso # (Auto) 0.1 10^3/uL (0.0-0.1) 06/11/25 03:47 Nucleated RBC % (auto) 0 % 06/11/25 03:47 Nucleated RBCs # 0.0 /100WBC 06/11/25 03:47 D-Dimer 0.61 ug/mLFEU (0-0.59) H 06/10/25 11:02 Sodium 138 mmol/L (136-145) 06/11/25 03:47 Potassium 3.9 mmol/L (3.5-5.1) 06/11/25 03:47 Chloride 101 mmol/L (98-107) 06/11/25 03:47 Carbon Dioxide 26 mmol/L (22-29) 06/11/25 03:47 Anion Gap 14.9 (5-19) 06/11/25 03:47 BUN 9 mg/dL (8-23) 06/11/25 03:47 Creatinine 0.9 mg/dL (0.7-1.2) 06/11/25 03:47 GFR Calculation 85.2 mL/min (90-130) L 06/11/25 03:47 Glucose 97 mg/dL (65-115) 06/11/25 03:47 Calculated Osmolality 285 mOsm/kg (285-295) 06/11/25 03:47 Calcium 8.4 mg/dL (8.5-10.5) L 06/11/25 03:47 Magnesium 2.2 mg/dL (1.7-2.3) 06/11/25 03:47 Total Bilirubin 0.5 mg/dL (0.15-1.2) 06/11/25 03:47 AST 22 U/L (0-40) 06/11/25 03:47 ALT 24 U/L (0-41) 06/11/25 03:47 Alkaline Phosphatase 89 U/L (40-130) 06/11/25 03:47 Troponin T Baseline 11 ng/L (0-15) 06/10/25 11:02 Troponin T 120 Minute 8.77 ng/L (0-15) 06/10/25 15:18 Delta Troponin T -2.23 ABS# (0-10) L 06/10/25 15:18 Troponin T Hi Sens 6Hr 9.31 ng/L (0-15) 06/10/25 19:56 Troponin T Hi Sens 6Hr Delta -1.69 ng/L (0-12) L 06/10/25 19:56 Total Protein 6.8 g/dL (6.6-8.7) 06/11/25 03:47 Albumin 4.0 g/dL (3.5-5.2) 06/11/25 03:47 Globulin 2.8 g/dL (1.3-4.6) 06/11/25 03:47 A&P Assessment and plan 1. Chest pain, unspecified type: Etiology of chest pain is not clear. His D-dimer was slightly elevated. Possibility of PE causing this cannot be excluded but my clinical suspicion may be low. Unstable angina causing this is a consideration. But the EKG is unremarkable. No evidence of medical injury. CTA shows no evidence of PE. At this point, because of the ongoing chest pains, in order to further evaluate her coronary status, a repeat cardiac catheterization would be appropriate. 2. Coronary artery disease with recent acute coronary syndrome and history of coronary revascularization: No signs of any myocardial injury at this time. Patient has allergy to heparin and Lovenox. I may hold off on any anticoagulant at this point. 3. Dyslipidemia: May continue on the current medications. 4. Electrocution and nonfatal effects of electric current, sequela: Whether this event has any effect on his symptoms is questionable. Plan: The echocardiogram revealed normal LV size with a borderline low ejection fraction 50%. Essentially unchanged from the previous echocardiogram. In order to further evaluate his symptoms, a cardiac catheterization would be appropriate. Risk and benefits were discussed. The risk of bleeding, hematoma, vascular injury, myocardial infarction, myocardial perforation, malignant cardiac arrhythmias ,CVA, renal failure and other concomitant complications were explained in detail. Patient understood this well and consented to proceed. Based on the results of the above tests and the patient's clinical progress, further recommendations will be made. PDMP PDMP Reviewed: Not Reviewed Attestations Medical Necessity Statement*: Patient requires continued hospital stay for close monitoring and further management Coding Level of Care Code 59475 Diagnoses Chest pain, unspecified type R07.9 Chest pain type: unspecified Coronary artery disease with recent acute coronary syndrome and history of coronary revascularization I25.10; I24.9; Z98.61 Dyslipidemia E78.5 Electrocution and nonfatal effects of electric current, sequela T75.4XXS Encounter type: sequela
--- NOTE | 2025-06-11 10:10 | ECG_ITS ---
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 Measurements Intervals [place] Rate: 63 P: 40 OK: 170 QRS: -8 QRSD: 82 T: -10 QT: 411 QTc: 422 Interpretive Statements SINUS RHYTHM Compared to ECG 06/10/2025 16:21:27 No significant changes Electronically Signed On 06-11-2025 14:05:04 CDT by Eve Rodriguez M.D. [email or web address]
--- NOTE | 2025-06-11 11:16 | XACV_ITS ---
Exam Room: 2 Ht: 165 cm Wt: 96 kg BSA: 2.14 m2 Gender: Male : 1960 Any Known Allergies: Other Exam Priority: Routine Procedure(s): Procedure Description: Diagnostic procedure Procedure Description: PCI procedure Procedure Description: Drug Eluting Coronary Stent Procedure Description: PTCA Procedure Description: Miscellaneous Procedure Description: Angio-Seal Procedure Description: Coronary Angiography Michael NG; Diagnostic Cath Status: Urgent Diagnostic Findings * The left main is a medium caliber vessel with no significant stenotic lesions. * The left anterior descending artery is a medium caliber vessel which appears to taper off towards the LV apex. It gives off a high diagonal branch proximally which bifurcates near to the ostium. The bifurcation branches are found to have mild diffuse intimal irregularities. * The left circumflex artery is a medium caliber vessel which was found to have mild diffuse intimal irregularities. No significant stenotic lesions were noted. * The right coronary artery is a medium to large caliber dominant vessel which was found to have around 30% eccentric lesion distally. The PDA branch was found to have patent stent at the ostium. Around 30 to 40% narrowing was noted near the ostium. The PLV branch was found to have around 70% eccentric lesion at the mid segment. Mild diffuse intimal irregularities are noted in the other vessels. PCI Status: Urgent PCI Indication: New Onset Angina <= 2 months Interventional Findings * 1st Right posterolateral: 80% stenosis treated with a AB TREK 2.50X12 RX BALLOON, EULALIA Tellez MAXIM 2.5X15 DIMA, and EULALIA AGUILAR EUPHORA RX [id number] BALLOON. 0% residual stenosis, CLARISSE: 3 flow. Conclusions 1. This 64-year-old white male with history of hypertension, dyslipidemia, recent PCI, presenting with increasing episodes of chest pains. For further evaluation of his coronary status, a repeat cardiac catheterization was recommended. Patient underwent left and right coronary angiogram today. The findings are as follows. 2. No significant left main disease. Mild diffuse diseae in the a left anterior descending artery and the circumflex artery. The right coronary artery has mild disease distally. The stent near to the ostium of the posterior descending artery was found to be patent. High-grade lesion at the mid segment of the PLV branch of the right coronary artery. 3. I reviewed and discussed the cardiac catheterization data with the . It was thought to be appropriate to consider PCI of the PLV branch. took over further might have this patient at this point. 4. 1st Right posterolateral was treated with a Balloon, Drug Eluting Stent, and Balloon. Recommendations * Transfer to CSU for Post PCI care. * Continue Dual antiplatelet therapy Plavix and Asprin for atleast one year. Diagnostic RX Recommendation: PCI w/o planned CABG Pressures Phase:Rest AO : 103 / 81 ( 91 ) @ 1:32:00 PM 116 / 69 ( 82 ) @ 1:50:00 PM Clinical Evaluation EBL: 5mL-10mL Procedural Details Procedure Consent Obtained. Pre-Procedure Time Out. Identified patient by full name and date of as verbalized by the patient/guarantor. Does the consent match the physician's order: Yes. Accurate & Complete Informed Consent: Yes. Inpatient/Outpatient History & Physical on Chart: Yes. If H&P is completed, is and addenduem needed: No; If yes, is the addendum complete: N/A. Visualize and Verify Site with Patient/Guarantor: N/A. Relevant Radiology Images available: Yes. The risks, benefits, and alternatives of sedation and/or procedure were discussed by physician. The patient agrees to continue. Procedure started. [facility] Clinical Fraility Score: 3: Managing Well. Financial Systems Director Indications: Worsening Angina. Chest Pain Symptom Assessment: Typical Angina Symptoms. Cardiovascular Instability: No. Correct patient, site and procedure confirmed by cath team. PERRLA. Strong, equal hand load manager bilaterally. Lungs clear x 5 lobes. IV Site on Arrival: 20 gauge in the left hand. IV Fluids: 0.9% NaCl at KVO. 200 mL infused prior to metallurgical laboratory assistant. Pre Procedural Pulses: bilateral dorsalis pedis was 2+. Pre Procedural Pulses: bilateral posterior tibial was 2+. Pre Procedural Pulses: bilateral radial was 2+. Oxygen started at 2liters/min via nasal canula. bilateral groins was prepped with chloroprep then draped in the usual sterile fashion. Physician notified. Baseline sample Acquired. HR: 47 BPM. Patient stated to call his or son at the completion of the procedure. Phone numbers are in the chart. Equipment: 6F - Femoral. Cardiac Cath Pack. ACIST Manifold Kit Model BT 2000. Heparinized Saline (2 units/mL), 1000 mL bag. Kit, Micropuncture. Hemodynamic formulas in Rest were re-calculated based on hemoglobin value from 06/11/2025 12:00:00 AM. Physician arrived. Physician scrubbed in. Immediate Pre-Procedure Time Out. Correct Patient: Yes; Correct Procedure: Yes; Correct Site: Yes; Correct Patient Position: Yes; Correct Supplies: Yes; Dried Flammable Prep: Yes; Blood Products Available: N/A;. Lidocaine 1% infiltrated to the left groin. Arterial access obtained with micropuncture set. A 5 grenadian JL4 catheter in over the exchange J wire. Multiple views taken of left coronary artery. Catheter removed over the standard J wire. A 5 grenadian JR4 catheter in over the standard J wire. Multiple views taken of right coronary artery. Dr. Moody here to view cineography. Catheter removed over the standard J wire. Physician scrubbed out. Side port of sheath attached to Normal Saline flush at KVO to maintain patency. PCI Indication: CAD (without ischemic symptoms). Dr. Rodriguez attempted to call the patient's family. No answer at two different phone numbers. Dr. Rodriguez left a message on both numbers. Dr. Moody scrubbed in to perform intervention. 6 grenadian AL 0.75 guide catheter was inserted over the wire. Inflation number : 1 A AB TREK 2.50X12 RX BALLOON was prepped and advanced across the 1st RPL , then inflated to 12 MEKA for 0:21 seconds. Inflation number: 2 The AB TREK 2.50X12 RX BALLOON was reinflated across the 1st RPL, to 14 MEKA for 0:20 seconds. Balloon out. Results checked. Inflation Number : 3 A MDT R MAXIM 2.5X15 DIMA -Lot Number# [id number] Exp. was prepped and advanced across the 1st RPL. The stent was deployed at 14 MEKA for 0:27 seconds. Stent balloon out over wire. Inflation number : 4 A MDT NC EUPHORA RX 3.14W08OP BALLOON was prepped and advanced across the 1st RPL , then inflated to 12 MEKA for 0:19 seconds. Inflation number: 5 The MDT NC EUPHORA RX [id number] BALLOON was reinflated across the 1st RPL, to 12 MEKA for 0:21 seconds. Inflation number: 6 The MDT NC EUPHORA RX [id number] BALLOON was reinflated across the 1st RPL, to 12 MEKA for 0:20 seconds. Balloon out. Results checked. Wire out. Results checked. Guide catheter out over the standard J wire. A Right femoral angiogram was performed to determine safe placement of closure device. ACT drawn. Results 390 seconds. Therapeutic limits - pre-heparin administration 90-150 seconds and monitoring heparin during a vascular procedure >250 seconds. Angiomax drip stopped per Dr. Moody's verbal order. A Angio-Seal VIP ([facility] [place]) was successful obtaining hemostatsis at the Left Femoral artery insertion site. Angioseal placed without complications. No signs or symptoms of hematoma noted. Sterile dressing applied per usual sterile fashion. Lot # [id number] Exp. . Post Procedure: Pulses reassessed and unchanged. PERRLA. Strong, equal hand load manager bilaterally. No VTE prophylaxis required. Medication's Wasted: Lidocaine 1% = 10 mL. Medication's Wasted: Other = Solumedrol 25 mg. Total IV fluids: 80 mL. Post-op diagnosis: DIMA x 1 to the 1st RPL. Complications: none. Estimated blood loss: 5mL-10mL. Responsiveness - Normal response to verbal stimuli; alert and oriented, PERRLA. Airway - Unaffected, no intervention required; spontaneous ventilation. Circulation: W/N/L, pulses unchanged. Nausea/Vomiting: No. Medication's Wasted: Verapamil = 5 mg. Medication's Wasted: Nitro = 50 mg. Procedure completed. Patient transferred by bed to 1st floor. Vital chart was stopped. Access Site Site: Left Femoral artery Sheath Size: 6 Fr Hemostasis Method: Angio-Seal VIP ([facility] [place]) Hemostasis Success: Successful Procedure Medications Start: 12:08 PM Stop: 12:08 PM Medication: Benadryl Amount: 25 mg Route: I.V. Start: 12:17 PM Stop: 12:17 PM Medication: Versed Amount: 1 mg Route: I.V. Start: 12:17 PM Stop: 12:17 PM Medication: Fentanyl Amount: 50 mcg Route: I.V. Start: 12:20 PM Stop: 12:20 PM Medication: Solu-Medrol (methylprednisolone) Amount: 100 mg Route: I.V. Start: 12:28 PM Stop: 12:28 PM Medication: Versed Amount: 1 mg Route: I.V. Start: 12:50 PM Stop: 12:50 PM Medication: Angiomax (5mg/mL) Amount: 14 ml Route: I.V. bolus Start: 12:50 PM Stop: 12:50 PM Medication: Angiomax (5mg/mL) Amount: 33 ml/hr Route: I.V. bolus Start: 12:53 PM Stop: 12:53 PM Medication: Fentanyl Amount: 25 mcg Route: I.V. Start: 1:09 PM Stop: 1:09 PM Medication: Fentanyl Amount: 25 mcg Route: I.V. I, the attending physician, have reviewed and verified all procedure medications. Yes, all medications given per verbal order History/Risk Factors Hypertension: No Dyslipidemia: Yes Peripheral Arterial Disease (PAD): No Myocardial Infarction (NC): No Obesity: Yes Renal Disease: No Tobacco Use: Never Prior Interventions PCI: No CABG: No Valve Surgery: No Report Signatures Interventional Workflow Finalized by Rohan Moody MD on 06/16/2025 12:05 AM Diagnostic Workflow Finalized by Dr Eve Rodriguez MD [facility] on 06/11/2025 04:45 PM
[2025-06-11 11:53] LABS: Troponin T (5th) Once < 6 ng/L (0-15)
--- NOTE | 2025-06-11 11:54 | PC.NURSE ---
to cardiac laborer fryer farm at this time
--- NOTE | 2025-06-11 11:55 | W.PM.OPSUD ---
Surgery/Procedure H&P Update DATE OF PROCEDURE: June 11, 2025 DATE H&P PERFORMED: 06/10/25 H&P UPDATE INFORMATION: I have reviewed H&P completed within last 30 days, I have examined patient prior to procedure and No changes to prior documentation PREOP DIAGNOSIS: ASHD PRIMARY INDICATION FOR PROCEDURE: Recent PCI, ongoing chest pains/unstable lunate PLANNED PROCEDURE: Left heart catheterization with a coronary angiogram and possible PCI PATIENT REASSESSED PRIOR TO SEDATION, WITH NO CHANGE NOTED: Yes PHYSICAL EXAM: alert, oriented x 3, clear to auscultation bilaterally and regular rate & rhythm AIRWAY EVAL/ANESTHESIA PLAN: normal airway, see other exam findings, ASA III, Monitored Anesthesia, Local Anesthesia, Risks, benefits & alternatives of sedation and/or procedure discussed and Patient agrees to continue as planned
--- NOTE | 2025-06-11 13:03 | PM.OP ---
Operative Report Date of procedure: June 11, 2025 Surgeon: Eve Rodriguez MD Procedure: Patient underwent left craterization with a coronary angiogram. He was found to have mild diffuse intimal irregularities in the Left anterior descending artery and the circumflex artery. The right coronary artery was found to have patent stented area of the ostium of the PDA. The PLV branch was found to have a 70% eccentric lesion at the midsegment. I discussed and reviewed the angiogram findings with Dr. oMody. The lesion in the PLV branch was thought to be the culprit causing the chest pain. So it was decided to go ahead with the PCI of the PLV lesion. to took over further management this patient at this point
--- NOTE | 2025-06-11 13:28 | PM.PROC ---
Procedure Note: Date of procedure: 06/11/25 Pre-procedure diagnosis: Unstable angina Post-procedure diagnosis: same Procedure: Left heart cath was performed by Dr. Rodriguez. Left main LAD left circumflex does not have significant obstructive disease. RCA patent previously placed ostial PDA stent however PLB is moderate-sized in caliber vessel which has eccentric mid torturous band stenosis thought to be around 80% and the culprit. It was treated with balloon angioplasty followed by single drug-eluting stent which was postdilated with noncompliant balloon. Excellent angiographic result with CLARISSE-3 flow was achieved. Angiomax was used patient left groin was sealed with Angio-Seal. Plan: Bedrest for 4 hours Continue dual antiplatelet therapy in the form of Plavix 75 mg and 81 mg of aspirin. Continue IV fluid 100 mL/h for next 5 hours Continue home medications Patient is followed by Dr. Rodriguez Coding Level of Care Code Acute Code for Chg Fwd
--- NOTE | 2025-06-11 14:59 | PC.NURSE ---
return from cardiac labor relations teacher at 1340 via bed.report received.pt is alert and awake and oriented x 4.denies pain at present.sr on monitor.left femoral cath site had been closed with angioseal in cath ab.site is dry and intact.right leg is warm to touch and with brisk capillary refill.palpable dp pulse noted.pt instructed in activity restrictions sp femoral artery procedure...and instructed to notify staff for any bleeding,pain,numbness,or for any concerns at all.pt verb understanding of instructions
[2025-06-12 03:04] LABS: Hematocrit 40.4 % (37-53); Hemoglobin 13.70 g/dL (11.27-16.99); Mean Corpuscular HGB Conc 33.9 g/dL (30-55); Mean Corpuscular Hemoglobin 29.8 pg (27-33); Mean Corpuscular Volume 87.8 fl (82-101); Nucleated Red Blood Cells % 0 %; Platelet Count 229 10^3/cmm (157-399); Red Blood Count 4.60 10^6/uL (3.85-5.65); White Blood Count 7.53 10^3/uL (3.29-11.43)
[2025-06-12 03:24] LABS: Anion Gap 18.1 (5-19); Blood Urea Nitrogen 11 mg/dL (8-23); Calcium 8.9 mg/dL (8.5-10.5); Carbon Dioxide 20 mmol/L (22-29); Chloride 102 mmol/L (98-107); Creatinine Clr Calc Pharmacy 80.6951; Glucose 263 mg/dL (65-115); Osmolality Calculated 291 mOsm/kg (285-295); Potassium 4.1 mmol/L (3.5-5.1); Sodium 136 mmol/L (136-145)
[2025-06-12 04:00] VITALS: BP 117/61; PULSE 81; RESP 23; TEMP 36.8; O2SAT 96
[2025-06-12 07:44] VITALS: BP 131/68; PULSE 88; RESP 16; TEMP 36.7; O2SAT 94
[2025-06-12 08:06] VITALS: PULSE 70; RESP 18; O2SAT 96
--- NOTE | 2025-06-12 09:35 | P.PN_ITS ---
Subjective 2 Medications: Medication Review Details: Current Medications Al Hydrox/Mg Hydrox/Simethicone (Nyiy-Aot-Jpvnecbho-Freddie 30 Ml Udc) 30 ml PO Q15M PRN PRN Reason: INDIGESTION Albuterol Sulfate (Albuterol 2.5 Mg/3 Ml Neb) 2.5 mg INHALATION Q6H.RESP PRN PRN Reason: SHORTNESS OF BREATH Aspirin (Aspirin 81 Mg Ec Tablet) 81 mg PO DAILY [facility] Last Admin: 06/12/25 09:29 Dose: 81 mg Atorvastatin Calcium (Atorvastatin 40 Mg Tablet) 40 mg PO BEDTIME [facility] Last Admin: 06/11/25 20:51 Dose: 40 mg Atropine Sulfate (Atropine 1 Mg/Ml Sdv 1 Ml) 0.5 mg IVP PRN PRN PRN Reason: Symptomatic bradycardia Clopidogrel Bisulfate (Clopidogrel 75 Mg Tablet) 75 mg PO DAILY [facility] Last Admin: 06/12/25 09:30 Dose: 75 mg Sodium Chloride (Sodium Chloride 0.9%) 1,000 mls @ 100 mls/hr IV .Q10H [facility] Last Admin: 06/12/25 04:45 Dose: Not Given Sodium Chloride (Sodium Chloride 0.9%) 1,000 mls @ 100 mls/hr IV .Q10H [facility] Last Admin: 06/11/25 23:15 Dose: Not Given Isosorbide Mononitrate (Isosorbide Mononitrate Er 30 Mg Tablet) 30 mg PO DAILY [facility] Last Admin: 06/12/25 09:29 Dose: 30 mg Magnesium Hydroxide (Magnesium Hydroxide 30 Ml Udc) 30 ml PO DAILY PRN PRN Reason: CONSTIPATION Metoprolol Tartrate (Metoprolol Tartrate 25 Mg Tablet) 12.5 mg PO BID@0900,2100 [facility] Last Admin: 06/12/25 09:29 Dose: 12.5 mg Morphine Sulfate (Morphine 4 Mg/Ml Sdv 1 Ml) 4 mg IVP Q4H PRN PRN Reason: SEVERE PAIN Last Admin: 06/10/25 23:23 Dose: 4 mg Naloxone HCl (Naloxone 0.4 Mg/Ml Sdv) 0.1 mg IVP Q2M PRN PRN Reason: RESPIRATORY RATE < 8/MIN Nitroglycerin (Nitroglycerin 0.4 Mg Sublingual Tablet) 0.4 mg SUBLINGUAL Q5M PRN PRN Reason: CHEST PAIN Non-Formulary Medication (Triamcinolone Acetonide) 1 applic MUCOUS MEM BID [facility]IO[facility] Ondansetron HCl (Ondansetron 2 Mg/Ml Sdv 2 Ml) 4 mg IVP Q8H PRN PRN Reason: vomiting, or N/V if npo Pantoprazole Sodium (Pantoprazole Dr 40 Mg Tablet) 40 mg PO DAILY [facility] Last Admin: 06/12/25 09:30 Dose: 40 mg Vitals/I&O/Wt Last Vital Signs Temp 98.0 F 06/12/25 07:44 Pulse 70 06/12/25 08:06 Resp 18 06/12/25 08:06 BP 131/68 06/12/25 07:44 Pulse Ox 96 06/12/25 08:06 O2 Del Method Room Air 06/12/25 08:06 06/11/25 06/12/25 06/12/25 22:59 06:59 14:59 Intake Total 1240 / 2240 240 / 240 Output Total 1300 / 1300 550 / 1850 Balance -60 / 940 -550 / 390 240 / 240 Weight last 48 hrs Weight 212 lb 11.2 oz Weight 212 lb 8 oz Weight 212 lb 14.4 oz Weight 200 lb Physical Exam 2 Narrative: GENERAL: The patient is alert and oriented times three. Not in any acute distress. HEENT: No significant pallor, icterus or lymphadenopathy.Oral cavity: There are no mucous membrane lesions. NECK: Trachea appears to be central. No masses noted. No JVD or thyromegaly appreciated. RESPIRATORY: Chest is symmetrical. Minimal tenderness in the left costochondral areas. No muscle retraction or any accessory muscle activation.Breath sounds are heard bilaterally. No rales or rhonchi heard. No evidence of any consolidation. BREASTS: Deferred. HEART: The heart sounds are normal. No S3 or S4. No significant murmurs. No pericardial rub ABDOMEN: No vessel pulsations or distention. No tenderness. No organomegaly appreciated. Bowel sounds are normally heard. : Deferred. RECTAL: Deferred. LYMPHATIC: No lymphadenopathy noted in the neck. EXTREMITIES: No edema or cyanosis. No clubbing. MUSCULOSKELETAL: No acute joint deformities or swelling SKIN: There are no significant rashes or ecchymosis NEUROPSYCHIATRIC: The patient is alert and oriented x3. Appears to be in a good mood. No tremors or rigidity noted. Data 06/12/25 02:05 06/12/25 02:05 Other Labs: Laboratory Last Values WBC 7.53 10^3/uL (3.29-11.43) 06/12/25 02:05 RBC 4.60 10^6/uL (3.85-5.65) 06/12/25 02:05 Hgb 13.70 g/dL (11.27-16.99) 06/12/25 02:05 Hct 40.4 % (37-53) 06/12/25 02:05 MCV 87.8 fl (82-101) 06/12/25 02:05 MCH 29.8 pg (27-33) 06/12/25 02:05 MCHC 33.9 g/dL (30-55) 06/12/25 02:05 RDW 12.4 % (12.1-15.1) 06/12/25 02:05 Plt Count 229 10^3/cmm (157-399) 06/12/25 02:05 MPV 9.9 fL (7.4-10.4) 06/12/25 02:05 Neut % (Auto) 81.4 % 06/12/25 02:05 Lymph % (Auto) 15.3 % 06/12/25 02:05 Harmon % (Auto) 2.5 % 06/12/25 02:05 Eos % (Auto) 0.0 % 06/12/25 02:05 Baso % (Auto) 0.1 % 06/12/25 02:05 Neut # (Auto) 6.13 10^3/uL (1.8-7.7) 06/12/25 02:05 Lymph # (Auto) 1.2 10^3/uL (0.8-4.8) 06/12/25 02:05 Harmon # (Auto) 0.2 10^3/uL (0.2-0.9) 06/12/25 02:05 Eos # (Auto) 0.0 10^3/uL (0.0-0.8) 06/12/25 02:05 Baso # (Auto) 0.0 10^3/uL (0.0-0.1) 06/12/25 02:05 Nucleated RBC % (auto) 0 % 06/12/25 02:05 Nucleated RBCs # 0.0 /100WBC 06/12/25 02:05 D-Dimer 0.61 ug/mLFEU (0-0.59) H 06/10/25 11:02 Sodium 136 mmol/L (136-145) 06/12/25 02:05 Potassium 4.1 mmol/L (3.5-5.1) 06/12/25 02:05 Chloride 102 mmol/L (98-107) 06/12/25 02:05 Carbon Dioxide 20 mmol/L (22-29) L 06/12/25 02:05 Anion Gap 18.1 (5-19) 06/12/25 02:05 BUN 11 mg/dL (8-23) 06/12/25 02:05 Creatinine 1.0 mg/dL (0.7-1.2) 06/12/25 02:05 GFR Calculation 75.5 mL/min (90-130) L 06/12/25 02:05 Glucose 263 mg/dL (65-115) H 06/12/25 02:05 Calculated Osmolality 291 mOsm/kg (285-295) 06/12/25 02:05 Calcium 8.9 mg/dL (8.5-10.5) 06/12/25 02:05 Magnesium 2.2 mg/dL (1.7-2.3) 06/11/25 03:47 Total Bilirubin 0.5 mg/dL (0.15-1.2) 06/11/25 03:47 AST 22 U/L (0-40) 06/11/25 03:47 ALT 24 U/L (0-41) 06/11/25 03:47 Alkaline Phosphatase 89 U/L (40-130) 06/11/25 03:47 Troponin T 5th Gen ng/L < 6 ng/L (0-15) 06/11/25 11:22 Troponin T Baseline 11 ng/L (0-15) 06/10/25 11:02 Troponin T 120 Minute 8.77 ng/L (0-15) 06/10/25 15:18 Delta Troponin T -2.23 ABS# (0-10) L 06/10/25 15:18 Troponin T Hi Sens 6Hr 9.31 ng/L (0-15) 06/10/25 19:56 Troponin T Hi Sens 6Hr Delta -1.69 ng/L (0-12) L 06/10/25 19:56 Total Protein 6.8 g/dL (6.6-8.7) 06/11/25 03:47 Albumin 4.0 g/dL (3.5-5.2) 06/11/25 03:47 Globulin 2.8 g/dL (1.3-4.6) 06/11/25 03:47 A&P Assessment and plan 1. Chest pain, unspecified type: Etiology of chest pain is not clear. His D-dimer was slightly elevated. Possibility of PE causing this cannot be excluded but my clinical suspicion may be low. Unstable angina causing this is a consideration. But the EKG is unremarkable. No evidence of medical injury. CTA shows no evidence of PE. At this point, because of the ongoing chest pains, in order to further evaluate her coronary status, a repeat cardiac catheterization would be appropriate. 2. Coronary artery disease with recent acute coronary syndrome and history of coronary revascularization: No signs of any myocardial injury at this time. Patient has allergy to heparin and Lovenox. I may hold off on any anticoagulant at this point. 3. Dyslipidemia: May continue on the current medications. 4. Electrocution and nonfatal effects of electric current, sequela: Whether this event has any effect on his symptoms is questionable. Plan: The echocardiogram revealed normal LV size with a borderline low ejection fraction 50%. Essentially unchanged from the previous echocardiogram. In order to further evaluate his symptoms, a cardiac catheterization would be appropriate. Risk and benefits were discussed. The risk of bleeding, hematoma, vascular injury, myocardial infarction, myocardial perforation, malignant cardiac arrhythmias ,CVA, renal failure and other concomitant complications were explained in detail. Patient understood this well and consented to proceed. Based on the results of the above tests and the patient's clinical progress, further recommendations will be made. PDMP PDMP Reviewed: Not Reviewed Coding Level of Care Code Acute Code for Chg Fwd Diagnoses Chest pain, unspecified type R07.9 Chest pain type: unspecified Coronary artery disease with recent acute coronary syndrome and history of coronary revascularization I25.10; I24.9; Z98.61 Dyslipidemia E78.5 Electrocution and nonfatal effects of electric current, sequela T75.4XXS Encounter type: sequela
--- NOTE | 2025-06-12 12:44 | PM.DCS ---
Discharge Providers Date of Admission: 06/10/25 11:22 Date of Discharge: June 12, 2025 Attending Provider at Admission: Iza Larson MD Attending Provider at Discharge: Sylvia Campoverde MD Consults: Cardiology with Dr. Moody Primary Care Provider: PCP Diagnoses at Discharge Discharge Diagnosis 1. Chest pain, unspecified type: 2. Coronary artery disease with recent acute coronary syndrome and history of coronary revascularization: 3. Dyslipidemia: 4. Electrocution and nonfatal effects of electric current, sequela: Reason for Visit Reason for Visit: CP Hospital Course Hospital Course Eliecer Ngo is a 64 year old male with past medical history of congenital heart/lung disease?, Obesity, hypertension, extensive family history of CAD, recent PCI and discharged on 06/05 presented to the hospital for complaint of chest pain. He states that he has seen his primary care doctor, had an ER visit, seen cardiology yesterday for chest pain. He states that he had a stent placed about 10 days ago and since then has been having chest pain radiating into his left arm and jaw. He states that this happened again today and therefore he called EMS. They told him to chew 4 aspirins. He also took 5 nitro tablets which finally relieved the pain. He said when he saw cardiology yesterday they had a suspicion of blood clot in his lung and asked him to go to the ER however he states he did not come yesterday. He states his chest hurts when he takes a deep breath and is reproduced with palpation however at times he is sitting comfortably and the pain is still there. He describes it almost as a spasm in the left arm and jaw area. At this moment he denies chest pain. He has a nitro patch in place. He also stated that on his previous hospitalization his troponins and EKG were not indicating heart disease however because he was having continued chest pain that ended up putting a stent in . Denies shortness of breath, nausea vomiting at this time. Patient had been seen by myself today and doing okay and no further chest pain. Patient is on Plavix 75 mg once daily and baby aspirin. Case had been fully discussed with Dr. Moody who said it is okay for patient to go home. Patient is also on Imdur 30 mg once daily. I have prescribed with 90 days supply of Plavix and patient is to follow-up with Dr. Lawton within 1 week. Patient also to follow-up with the PCP. Patient denies any further complaints at this time. Cardiology had been in yesterday and also today to speak with the patient and the family. Physical Exam Narrative: Patient is lying in bed in no apparent distress HEENT normocephalic atraumatic Neck neck is supple Cardiovascular heart rate is regular Lungs are clear Abdomen is soft nontender nondistended Extremities intact no edema has good pulses Neurology has no focality lab studies reviewed and noted Discharge Data Studies Completed and Pending Completed Studies During Hospitalization Category Date Time Status CTA chest [CT angio chest PE protcl [id number]] Stat Cat Scan 06/10/25 15:35 Completed XR chest 1V portable [id number] Stat Exams 06/10/25 10:25 Completed CV. echo limited [id number] Stat Ultrasound 06/10/25 13:09 Completed Pending at discharge Category Date Time Status UPPER CUTTER OUT request for service Routine Exams 06/11/25 11:16 Ordered Radiology Impressions Chest X-Ray 06/10/25 10:25 IMPRESSION: Stable chest without acute abnormality. Chest CTA 06/10/25 15:35 IMPRESSION: 1. Elevation of the right hemidiaphragm with linear scarring or atelectasis at the right lung base. 2. 2 cm hypodense lesion possibly lymph node within the anterior mediastinum unchanged. Laboratory Results WBC 7.53 10^3/uL (3.29-11.43) 06/12/25 02:05 RBC 4.60 10^6/uL (3.85-5.65) 06/12/25 02:05 Hgb 13.70 g/dL (11.27-16.99) 06/12/25 02:05 Hct 40.4 % (37-53) 06/12/25 02:05 MCV 87.8 fl (82-101) 06/12/25 02:05 MCH 29.8 pg (27-33) 06/12/25 02:05 MCHC 33.9 g/dL (30-55) 06/12/25 02:05 RDW 12.4 % (12.1-15.1) 06/12/25 02:05 Plt Count 229 10^3/cmm (157-399) 06/12/25 02:05 MPV 9.9 fL (7.4-10.4) 06/12/25 02:05 Neut % (Auto) 81.4 % 06/12/25 02:05 Lymph % (Auto) 15.3 % 06/12/25 02:05 Russell % (Auto) 2.5 % 06/12/25 02:05 Eos % (Auto) 0.0 % 06/12/25 02:05 Baso % (Auto) 0.1 % 06/12/25 02:05 Neut # (Auto) 6.13 10^3/uL (1.8-7.7) 06/12/25 02:05 Lymph # (Auto) 1.2 10^3/uL (0.8-4.8) 06/12/25 02:05 Russell # (Auto) 0.2 10^3/uL (0.2-0.9) 06/12/25 02:05 Eos # (Auto) 0.0 10^3/uL (0.0-0.8) 06/12/25 02:05 Baso # (Auto) 0.0 10^3/uL (0.0-0.1) 06/12/25 02:05 Nucleated RBC % (auto) 0 % 06/12/25 02:05 Nucleated RBCs # 0.0 /100WBC 06/12/25 02:05 D-Dimer 0.61 ug/mLFEU (0-0.59) H 06/10/25 11:02 Sodium 136 mmol/L (136-145) 06/12/25 02:05 Potassium 4.1 mmol/L (3.5-5.1) 06/12/25 02:05 Chloride 102 mmol/L (98-107) 06/12/25 02:05 Carbon Dioxide 20 mmol/L (22-29) L 06/12/25 02:05 Anion Gap 18.1 (5-19) 06/12/25 02:05 BUN 11 mg/dL (8-23) 06/12/25 02:05 Creatinine 1.0 mg/dL (0.7-1.2) 06/12/25 02:05 GFR Calculation 75.5 mL/min (90-130) L 06/12/25 02:05 Glucose 263 mg/dL (65-115) H 06/12/25 02:05 Calculated Osmolality 291 mOsm/kg (285-295) 06/12/25 02:05 Calcium 8.9 mg/dL (8.5-10.5) 06/12/25 02:05 Magnesium 2.2 mg/dL (1.7-2.3) 06/11/25 03:47 Total Bilirubin 0.5 mg/dL (0.15-1.2) 06/11/25 03:47 AST 22 U/L (0-40) 06/11/25 03:47 ALT 24 U/L (0-41) 06/11/25 03:47 Alkaline Phosphatase 89 U/L (40-130) 06/11/25 03:47 Troponin T 5th Gen ng/L < 6 ng/L (0-15) 06/11/25 11:22 Troponin T Baseline 11 ng/L (0-15) 06/10/25 11:02 Troponin T 120 Minute 8.77 ng/L (0-15) 06/10/25 15:18 Delta Troponin T -2.23 ABS# (0-10) L 06/10/25 15:18 Troponin T Hi Sens 6Hr 9.31 ng/L (0-15) 06/10/25 19:56 Troponin T Hi Sens 6Hr Delta -1.69 ng/L (0-12) L 06/10/25 19:56 Total Protein 6.8 g/dL (6.6-8.7) 06/11/25 03:47 Albumin 4.0 g/dL (3.5-5.2) 06/11/25 03:47 Globulin 2.8 g/dL (1.3-4.6) 06/11/25 03:47 Vitals Last Vital Signs Temp 98.0 F 06/12/25 07:44 Pulse 70 06/12/25 08:06 Resp 18 06/12/25 08:06 BP 131/68 06/12/25 07:44 Pulse Ox 96 06/12/25 08:06 O2 Del Method Room Air 06/12/25 08:06 Discharge Plan Discharge Patient Disposition: Home Condition: Stable Prescriptions: New clopidogrel 75 mg Tablet 75 mg PO DAILY Qty: 90 0RF Continued aspirin 81 mg tablet,delayed release (DR/EC) 81 mg PO DAILY Qty: 90 3RF atorvastatin 40 mg tablet 40 mg PO BEDTIME Qty: 90 0RF isosorbide mononitrate 30 mg tablet extended release 24 hr 30 mg PO DAILY Qty: 90 0RF metoprolol tartrate 25 mg tablet 12.5 mg PO BID@0900,2100 Qty: 90 0RF nitroglycerin 0.4 mg Tablet, Sublingual 0.4 mg sublingual Q5M PRN (Reason: Chest Pain) 30 Days Qty: 30 0RF triamcinolone acetonide 0.1 % paste 1 applic mucous membrane BID Discontinued clopidogrel 75 mg tablet 75 mg PO DAILY Qty: 90 3RF mupirocin 2 % ointment 1 applic TOPICAL DAILY PRN (Reason: Skin Irritation) Ag Service Manager OK for DC: Cardiology Discharge Order = DC NOW: Discharge Order (Routine); Ordered 06/12/25 Ordered By: Sylvia Campoverde Referrals: Eve Rodriguez MD [Physician, Cardiology] - 7-10 days Referral Note: We have notified your physician's clinic of the need for a follow-up appointment to be scheduled. If you have not heard from them within the next 2 business days, please call them directly. Problems: Chest pain, unspecified type; History of coronary artery disease; Coronary artery disease with recent acute coronary syndrome and history of coronary revascularization; Dyslipidemia; Electrocution and nonfatal effects of electric current, Annie Falcon FNP [Nurse Practitioner, Cardiology] - 4-7 days Referral Note: We have notified your physician's clinic of the need for a follow-up appointment to be scheduled. If you have not heard from them within the next 2 business days, please call them directly. Discharge Diet: Cardiac Discharge Activity: Resume usual activity Patient Instructions: Clopidogrel (By mouth) (Plavix), Heart Catheterization (DC), Chest Pain Stoplight, Opioid Safety, Post Angiogram Home Care Instructions, Patient Portal & Marilyn Instructions Discharge Attestations Time Spent in Discharge Care*: less than 30 min Time Spent in Smoking Cessation: 5 minutes Quality Metrics Clinical Quality Measures [ Acute Myocardial Infaction { Clinical Trial Participant: No; Contraindication to aspirin: None; Aspirin prescribed; Contraindication to statin: None; Statin prescribed;}] Coding Level of Care Code 07837 Diagnoses Chest pain, unspecified type R07.9 Chest pain type: unspecified Coronary artery disease with recent acute coronary syndrome and history of coronary revascularization I25.10; I24.9; Z98.61 Dyslipidemia E78.5 Electrocution and nonfatal effects of electric current, sequela T75.4XXS Encounter type: sequela Time Spent (min) 30
[2025-06-12 13:15] VITALS: BP 131/68; PULSE 72; RESP 20; O2SAT 95
--- NOTE | 2025-06-12 13:43 | PC.NURSE ---
discharge instructions given and explained.pt verb understanding of instructions.discharged via w/c to exit at this time.
== END 2025-06-12 13:44 | disposition home or self-care (01) ==
LOC: ER 11:19 → CSU 12:23
PROVIDERS: Internal Medicine Cardiovascular Disease; Admitting Provider Internal Medicine; Emergency Provider Family Medicine; Visit Provider Internal Medicine
DX: I25.10 Atherosclerotic heart disease of native coronary artery without angina pectoris (principal); I24.9 Acute ischemic heart disease, unspecified; Z95.5 Presence of coronary angioplasty implant and graft; E78.5 Hyperlipidemia, unspecified; E66.9 Obesity, unspecified; Z68.35 Body mass index [BMI] 35.0-35.9, adult; Z82.49 Family history of ischemic heart disease and other diseases of the circulatory system; Z79.82 Long term (current) use of aspirin; K21.9 Gastro-esophageal reflux disease without esophagitis; T75.4XXS Electrocution, sequela; W86.8XXS Exposure to other electric current, sequela; I10 Essential (primary) hypertension
CPT/HCPCS: 36415; 71045; 71275; 80048; 80053; 83735; 84484; 85025; 85347; 85378; 93005; 93308; 93454; 94664; 96361; 96374; 96375; 96376; 99152; 99153; 99285; C1725; C1760; C1769; C1874; C1887; C1894; C9600; G0269; G0378; J0583; J1200; J1644; J2250; J2270; J2405; J2919; J3010; J3490; J7030; J9999; Q9967

== ENCOUNTER 2025-06-14 00:47 | Observation (INO) | payer MEDICARE, SELFPAY ==
--- OUTSIDE RECORDS SUMMARY | 2025-06-07 11:00 | XMS_ITS | Encounter Summary ---
Author Organization [facility] Address [address] [place] [address] Care Team Providers Care Scrap Preparer Name Role Phone Catalino Melgoza MD Primary Care Provider [phone] [phone] Reason for Visit * Reason Comments Hospital Follow Up Chest PainOZH D/C Encounter Details Date Type Department Care Team (Late st Contact Info) Description 06/07/2025 11:00 AM CDT Office Visit [facility] Medicine [address] [phone] Ana Alcantar NP [address] [place] [address] Hospital discharge follow-up (Primary Dx); [...] on file Legal Sex Male 3:48 PM TEST TUBE MAKER Gender Identity Not on file Sexual [...] from the original note were not included. [facility] 06/07/2025 Subjective: Eliecer Ngo is a 64 y.o. male who comes today for evaluation of Hospital Follow Up (Chest Pain/OZH D/C 06/06/25) . History of Present Illness The patient is a 64-year-old male here for [facility] discharge, chest pain, stent placement,and blisters on his left arm. He was recently admitted to [facility] for 4 to 5 days due [...] his primary care physician before seeing his ui application developer. He reports no issues with his blood [...] need adjustment. - Advised to consult with ui application developer promptly for further evaluation and potential adjustment [...] author of this note, patient (or authorized sales representative education courses), and all other persons present consent to the audio recording of this visit for charting documentation purposes. This note was automatically generated by a Generative AI technology ([employer]), reviewed, edited, and finalized by Ana Alcantar NP. Depression Screen Positive: PHQ-2 score >= 3 or PHQ-9 score >= 9 PHQ-2 Total: 0 (06/07/2025 11:02 AM) DEPRESSION PLAN OF CARE His depression screen was negative. (PHQ2 <3, PHQ9 <10, [place] <11) documented in this encounter Plan of Treatment Upcoming Encounters Date Type Department Care Team (Late st Contact Info) Description 11/07/2025 8:40 AM TEST TUBE MAKER Office Visit [facility] [address] [phone] Catalino Melgoza MD [address] [phone] documented as of this encounter Procedures Procedure Name Priority Date/Time Associated Diagnosis Comments CT ECG ROUTINE ECG W/LEAST 12 LDS W/I&R Routine 06/07/2025 11:00 AM CDT Chest pain, unspecified type documented in this encounter Results * CT ECG ROUTINE ECG W/LEAST 12 LDS W/I&R (06/07/2025 11:00 AM CDT) Narrative [facility] - 06/07/2025 11:00 AM CDT Catalino Melgoza [...] NP ECG ORDERABLES Edited Result - Final [facility] CLIA# [id number] [address] [place] [address] documented in this encounter Visit Diagnoses Diagnosis Hospital discharge follow-up- Primary Other follow-up examination Oral lesion Other and unspecified diseases of the oral soft tissues Blisters of multiple sites Other, multiple, and unspecified sites, blister, without mention of infection Chest pain, unspecified type Morbid obesity (CMS/HCC) Morbid obesity documented in this encounter Care Teams Scrap Preparer Relationship Specialty Start Date End Date Catalino Melgoza MD [address] [place] [address] PCP - General Family Practice 12/31/22 documented as of this encounter
[2025-06-14] VITALS (13 sets, daily range): BP systolic 108–153; BP diastolic 55–99; PULSE 67–92; RESP 14–20; TEMP 36.3–37; O2SAT 90–96; BMI 34.9; BMI 34.7
--- NOTE | 2025-06-14 00:48 | ECG_ITS ---
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 Measurements Intervals [place] Rate: 91 P: 33 NM: 147 QRS: -4 QRSD: 88 T: 10 QT: 360 QTc: 445 Interpretive Statements SINUS RHYTHM Compared to ECG 06/11/2025 10:10:15 No significant changes Electronically Signed On 06-16-2025 09:05:35 CDT by Fab Petersen M.D. [email or web address]
--- NOTE | 2025-06-14 00:52 | XRR_ITS ---
PROCEDURE INFORMATION: Exam: XR Chest Exam date and time: 06/14/2025 1:05 AM Age: 64 years old Clinical indication: Pain; Chest pressure; Prior surgery; Surgery date: 3-7 days post-operative; Surgery type: Coronary stents <1 week, previous HX of c-spine SX; Additional info: Cp TECHNIQUE: Imaging protocol: Radiologic exam of the chest. Views: 1 view. COMPARISON: CT angio chest PE prot [id number] 06/10/2025 3:54 PM FINDINGS: Lungs: Mild right basilar subsegmental atelectasis or scar again noted. No new airspace consolidation. No overt pulmonary edema. Pleural spaces: No appreciable pleural effusion. No pneumothorax. Heart/Mediastinum: Stable cardiomediastinal contours. Bones/joints: No acute findings. XR/XR chest 1V portable [id number] IMPRESSION: No acute findings.
--- OUTSIDE RECORDS SUMMARY | 2025-06-14 00:57 | XMS_ITS | Encounter Summary ---
Author Organization [facility] Address 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 No / Unsure 12/22/2021 4:00 PM CERTIFIED LACTATION COUNSELOR documented as of this encounter Plan of Treatment Upcoming Encounters Date Type Department Care Team (Late st Contact Info) Description 11/07/2025 8:40 AM CERTIFIED LACTATION COUNSELOR Office Visit [facility] [address] [phone] Catalino Melgoza MD [address] [address] documented as of this encounter Visit Diagnoses Not on filedocumented in this encounter Care Teams General Internal Medicine Doctor Relationship Specialty Start Date End Date Catalino Melgoza MD [address] [place] [address] PCP - General Family Practice 12/31/22 documented as of this encounter
--- OUTSIDE RECORDS SUMMARY | 2025-06-14 00:57 | XMS_ITS | Clinical Summary ---
Author Organization [facility] Address [address] [address] Phone Care Team Providers Care Demand Planning Manager Name Role Phone Catalino Melgoza MD Primary Care Provider [phone] Allergies Active Allergy Reactions Criticality Noted Date [...] Description 06/07/2025 11:00 AM CDT Office Visit [address] [address] Ana Alcantar NP Hospital discharge follow-up (Primary Dx); Oral lesion; Blisters of multiple sites; Chest pain, unspecified type; Morbid obesity ([facility]/HCC) 06/07/[address] [address] Provider, Abstract 06/07/[address] [address] Provider, Abstract 06/07/[address] [address] Ana Alcantar NP Hospital Follow Up 05/17/2025 External Device Data [facility] Provider, Abstract 05/11/2025 External Device Data [facility] Provider, Abstract 05/10/2025 External Device Data [facility] Provider, Abstract 04/15/2025 3:45 PM CDT - 04/15/2025 11:59 PM CDT Hospital Encounter [facility] [place] [address] [address] [facility] Discharge Disposition: [...] on file 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 Gender Identity Not on file Sexual Orientation [...] st Contact Info) Description 11/07/2025 8:40 AM CURATOR HORTICULTURAL 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 Office Visit [facility] [place] [address] [address] Catalino Melgoza MD [address] [address] Health Maintenance Due Date Last [...] Procedure Name Priority Date/Time Associated Diagnosis Comments LA ECG ROUTINE ECG W/LEAST 12 LDS W/I&R Routine 06/07/2025 11:00 AM CDT Chest pain, unspecified type HEMOGLOBIN A1C Routine 07/02/2024 9:58 AM CDT Wellness examination ENDOSCOPY, COLON, DIAGNOSTIC Stat 12/17/2022 Bleeding per rectum History of colon polyps from Last 3 Months or Most Recently Relevant to Health Maintenance Results * LA ECG ROUTINE ECG W/LEAST 12 LDS W/I&R (06/07/2025 11:00 AM CDT) [facility] - 06/07/2025 11:00 AM CDT Catalino Melgoza [...] findings Clinical impression: normal ECG Ana Alcantar POSTAL SORTING OFFICER ECG ORDERABLES Edited Result - Final [facility]# [id number] [address] [place] [address] * (ABNORMAL) HEMOGLOBIN A1C (07/02/2024 9:58 AM CDT) HEMOGLOBIN A1C 6.3(H) <5.7 % of total Hgb [facility] Comment: For someone without known diabetes, [...] children. ESTIMATED AVERAGE GLUCOSE (MG/DL) 134 mg/dL [employer] [facility] ESTIMATED AVERAGE GLUCOSE (MMOL/L) 7.4 mmol/L [employer] Comment: This test was performed on the Jennifer jessica c503 platform. Effective 02/09/24, a change in test platforms from the [employer] Facility Designer to the Jennifer jessica c503 may have shifted HbA1c results compared to historical results. Based on laboratory validation testing conducted at [facility], the Jennifer platform relative to the Rosales [...] platforms is not recommended. Test Performed at: [facility] [address] [facility] [place] [address] Clarissa Joseph MD Blood 07/02/2024 9:58 AM CDT 07/03/2024 4:54 AM CDT Ana Alcantar POSTAL SORTING OFFICER CHEMISTRY ORDERABLES Final Res ult [facility] [phone] [facility] [address] [address] [address] * ENDOSCOPY, COLON, DIAGNOSTIC (12/17/2022) Loreto Pearson Sheridan BROKE BEATER MACHINE OPERATOR GI PROCEDURE ORDERABLES Final Result from Last 3 Months or Most Recently Relevant to Health Maintenance Insurance [facility] [id number] [facility] Care Teams Demand Planning Manager Relationship Specialty Start Date End Date Catalino [place] [address] PCP - General Family Practice 12/31/22
--- OUTSIDE RECORDS SUMMARY | 2025-06-14 00:57 | XMS_ITS | Encounter Summary ---
Author Organization [facility] Address [address] [place] [address] Care Team Providers Care Drop Pit Worker Name Role Phone Catalino Melgoza MD Primary Care Provider [phone] [phone] Encounter Details Date Type Department Care Team (Late st Contact Info) Description 06/07/[address] [phone] Provider, Abstract NO ADDRESS ON FILE Social History Tobacco Use Types Packs/Day Years Used Date Smoking Tobacco: Never Smokeless Tobacco: Never Alcohol Use Standard Drinks/Week Comments Never 0 (1 standard drink = 0.6 oz pur e alcohol) Sex and Gender Information Value Date Recorded Sex Assigned at Not on file Legal Sex Male 3:48 PM TICKER WIRER Gender Identity Not on file Sexual Orientation Not on file documented as of this encounter Plan of Treatment Upcoming Encounters Date Type Department Care Team (Late st Contact Info) Description 11/07/2025 8:40 AM TICKER WIRER Office Visit [address] [phone] Catalino Melgoza MD [facility] [address] [phone] documented as of this encounter Visit Diagnoses Not on filedocumented in this encounter Care Teams Drop Pit Worker Relationship Specialty Start Date End Date Catalino Melgoza MD [address] [place] [address] PCP - General Family Practice 12/31/22 documented as of this encounter
--- OUTSIDE RECORDS SUMMARY | 2025-06-14 00:57 | XMS_ITS | Encounter Summary ---
Author Organization [facility] Address [address] [place] [address] Care Team Providers Care Grocery Deliverer Name Role Phone Catalino Melgoza MD Primary Care Provider [phone] Reason for Visit * Reason Comments Hospital Follow Up Encounter Details Date Type Department Care Team (Late st Contact Info) Description 06/07/2025 Telephone [facility] Medicine [address] [phone] Ana Alcantar NP [address] [place] [phone] Hospital Follow Up Social History Tobacco Use Types Packs/Day Years Used Date Smoking Tobacco: Never Smokeless Tobacco: Never Alcohol Use Standard Drinks/Week Comments Never 0 (1 standard drink = 0.6 oz pur e alcohol) Sex and Gender Information Value Date Recorded Sex Assigned at Not on file Legal Sex Male 3:48 PM SERVICE CENTER REPRESENTATIVE Gender Identity Not on file Sexual Orientation Not on file documented as of this encounter Miscellaneous Notes * Telephone Encounter - Ale Lindo - 06/07/2025 3:40 PM CDT Patient was seen 06/07/2025 for his hospital follow up. Ale Lindo, 06/07/2025 3:41 PM * Telephone Encounter - Ariana Spencer - 06/07/2025 9:51 AM CDT Copied from [facility] #[id number]. Topic: Established Patient Care >> Jun 07, 2025 9:45 AM Ariana Traore wrote: Is the patient established with a [facility] provider? Yes, select appropriate option in Discharge Facility SmartList Caller Name: Eliecer Ngo Callback Number: No relevant phone numbers on file. Call Notes: chest pain, stent placed. Scheduled for hospital f/u from [facility] on 06.07.20. Discharged - 06.06.25 Dx: Chest pain Patient is Low Risk Where was the patient discharged from? Hospital Is there availability to schedule the patient within 5 calendar days of discharge? Yes, in person appointment available Patient Access Instructions 1. Enter Appointment Notes as followed based on where patient was discharged from. If discharged from a [facility] - [facility] discharge If discharged from another hospital - Hospital name, date of discharge, informed patient to sign DINA 2. Link appointment in attachment section below. 3. Select Appointment Scheduled Resolve Reason and Click Close CRM. documented in this encounter Plan of Treatment Upcoming Encounters Date Type Department Care Team (Late st Contact Info) Description 11/07/2025 8:40 AM SERVICE CENTER REPRESENTATIVE Office Visit [facility] Family Medicine [address] [phone] Catalino Melgoza MD [address] [phone] documented as of this encounter Visit Diagnoses Not on filedocumented in this encounter Care Teams Grocery Deliverer Relationship Specialty Start Date End Date Catalino Melgoza MD [address] [place] [address] PCP - General Family Practice 12/31/22 documented as of this encounter
--- OUTSIDE RECORDS SUMMARY | 2025-06-14 00:57 | XMS_ITS | Encounter Summary ---
Author Organization [facility] Address [address] [place] [address] Care Team Providers Care Shipping And Receiving Operator Name Role Phone Catalino Melgoza MD Primary Care Provider [phone] [phone] Encounter Details Date Type Department Care Team (Late st Contact Info) Description 12/29/2021 Digital Self COVID-1 9 Monitoring ST[facility] ABSTRACTION Provider, Abstract NO ADDRESS ON FILE Social History Tobacco Use Types Packs/Day Years Used Date Smoking Tobacco: Never Smokeless Tobacco: Never Sex and Gender Information Value Date Recorded Sex Assigned at Not on file Legal Sex Male 3:48 PM LITHOGRAPHIC PROOFER Gender Identity Not on file Sexual Orientation Not on file COVID-19 Exposure Response Date Recorded In the last month, have you been in contact with someone who was confirmed or suspected to have Coronavirus / COVID-19? No / Unsure 12/22/2021 4:00 PM LITHOGRAPHIC PROOFER documented as of this encounter Plan of Treatment Upcoming Encounters Date Type Department Care Team (Late st Contact Info) Description 11/07/2025 8:40 AM LITHOGRAPHIC PROOFER Office Visit [facility] Medicine [address] [phone] Catalino Melgoza MD [address] [phone] documented as of this encounter Visit Diagnoses Not on filedocumented in this encounter Care Teams Shipping And Receiving Operator Relationship Specialty Start Date End Date Catalino Melgoza MD [address] [place] [address] PCP - General Family Practice 12/31/22 documented as of this encounter
--- OUTSIDE RECORDS SUMMARY | 2025-06-14 00:57 | XMS_ITS | Encounter Summary ---
Author Organization [facility] Address [address] [place] [address] Care Team Providers Care Product Scientist Name Role Phone Catalino Melgoza MD Primary Care Provider [phone] [phone] Encounter Details Date Type Department Care Team (Late st Contact Info) Description 12/30/2021 Digital Self COVID-1 9 Monitoring STL ABSTRACTION Provider, Abstract NO ADDRESS ON FILE Social History Tobacco Use Types Packs/Day Years Used Date Smoking Tobacco: Never Smokeless Tobacco: Never Sex and Gender Information Value Date Recorded Sex Assigned at Not on file Legal Sex Male 3:48 PM TRAIN DRIVER Gender Identity Not on file Sexual Orientation Not on file COVID-19 Exposure Response Date Recorded In the last month, have you been in contact with someone who was confirmed or suspected to have Coronavirus / COVID-19? No / Unsure 12/22/2021 4:00 PM TRAIN DRIVER documented as of this encounter Plan of Treatment Upcoming Encounters Date Type Department Care Team (Late st Contact Info) Description 11/07/2025 8:40 AM TRAIN DRIVER Office Visit [facility] Medicine [address] [phone] Catalino Melgoza MD [address] [phone] documented as of this encounter Visit Diagnoses Not on filedocumented in this encounter Care Teams Product Scientist Relationship Specialty Start Date End Date Catalino Melgoza MD [address] [place] [address] PCP - General Family Practice 12/31/22 documented as of this encounter
--- OUTSIDE RECORDS SUMMARY | 2025-06-14 00:57 | XMS_ITS | Encounter Summary ---
Author Organization [facility] Address [address] [place] [address] Care Team Providers Care Project Controls Scheduler Name Role Phone Catalino Melgoza MD Primary Care Provider [phone] [phone] Encounter Details Date Type Department Care Team (Late st Contact Info) Description 12/31/2021 Digital Self COVID-1 9 Monitoring STL ABSTRACTION Provider, Abstract NO ADDRESS ON FILE Social History Tobacco Use Types Packs/Day Years Used Date Smoking Tobacco: Never Smokeless Tobacco: Never Sex and Gender Information Value Date Recorded Sex Assigned at Not on file Legal Sex Male 3:48 PM CHINESE INSTRUCTOR Gender Identity Not on file Sexual Orientation Not on file COVID-19 Exposure Response Date Recorded In the last month, have you been in contact with someone who was confirmed or suspected to have Coronavirus / COVID-19? No / Unsure 12/22/2021 4:00 PM CHINESE INSTRUCTOR documented as of this encounter Plan of Treatment Upcoming Encounters Date Type Department Care Team (Late st Contact Info) Description 11/07/2025 8:40 AM CHINESE INSTRUCTOR Office Visit [facility] Medicine [address] [phone] Catalino Melgoza MD [address] [phone] documented as of this encounter Visit Diagnoses Not on filedocumented in this encounter Care Teams Project Controls Scheduler Relationship Specialty Start Date End Date Catalino Melgoza MD [address] [place] [address] PCP - General Family Practice 12/31/22 documented as of this encounter
--- OUTSIDE RECORDS SUMMARY | 2025-06-14 00:57 | XMS_ITS | Encounter Summary ---
Author Organization [facility] Address [address] [place] [address] Care Team Providers Care Glassblower Name Role Phone Catalino Melgoza MD Primary Care Provider [phone] [phone] Encounter Details Date Type Department Care Team (Late st Contact Info) Description 12/31/2021 Digital Self COVID-1 9 Monitoring STL ABSTRACTION Provider, Abstract NO ADDRESS ON FILE Social History Tobacco Use Types Packs/Day Years Used Date Smoking Tobacco: Never Smokeless Tobacco: Never Sex and Gender Information Value Date Recorded Sex Assigned at Not on file Legal Sex Male 3:48 PM EDUCATION SPECIALIST Gender Identity Not on file Sexual Orientation Not on file COVID-19 Exposure Response Date Recorded In the last month, have you been in contact with someone who was confirmed or suspected to have Coronavirus / COVID-19? No / Unsure 12/22/2021 4:00 PM EDUCATION SPECIALIST documented as of this encounter Plan of Treatment Upcoming Encounters Date Type Department Care Team (Late st Contact Info) Description 11/07/2025 8:40 AM EDUCATION SPECIALIST Office Visit [facility] Medicine [address] [phone] Catalino Melgoza MD [address] [phone] documented as of this encounter Visit Diagnoses Not on filedocumented in this encounter Care Teams Glassblower Relationship Specialty Start Date End Date Catalino Melgoza MD [address] [place] [address] PCP - General Family Practice 12/31/22 documented as of this encounter
--- OUTSIDE RECORDS SUMMARY | 2025-06-14 00:57 | XMS_ITS | Encounter Summary ---
Author Organization [facility] Address [address] [place] [address] Care Team Providers Care Forklift Wheel Loader Name Role Phone Catalino Melgoza MD Primary Care Provider [phone] [phone] Encounter Details Date Type Department Care Team (Late st Contact Info) Description 12/29/2021 Digital Self COVID-1 9 Monitoring STL ABSTRACTION Provider, Abstract NO ADDRESS ON FILE Social History Tobacco Use Types Packs/Day Years Used Date Smoking Tobacco: Never Smokeless Tobacco: Never Sex and Gender Information Value Date Recorded Sex Assigned at Not on file Legal Sex Male 3:48 PM FLAT DRIER Gender Identity Not on file Sexual Orientation Not on file COVID-19 Exposure Response Date Recorded In the last month, have you been in contact with someone who was confirmed or suspected to have Coronavirus / COVID-19? No / Unsure 12/22/2021 4:00 PM FLAT DRIER documented as of this encounter Plan of Treatment Upcoming Encounters Date Type Department Care Team (Late st Contact Info) Description 11/07/2025 8:40 AM FLAT DRIER Office Visit [facility] Medicine [address] [phone] Catalino Melgoza MD [address] [phone] documented as of this encounter Visit Diagnoses Not on filedocumented in this encounter Care Teams Forklift Wheel Loader Relationship Specialty Start Date End Date Catalino Melgoza MD [address] [place] [address] PCP - General Family Practice 12/31/22 documented as of this encounter
--- OUTSIDE RECORDS SUMMARY | 2025-06-14 00:57 | XMS_ITS | Encounter Summary ---
Author Organization [facility] Address [address] [place] [address] Care Team Providers Care Supervisor Area Name Role Phone Catalino Melgoza MD Primary Care Provider [phone] [phone] Encounter Details Date Type Department Care Team (Late st Contact Info) Description 06/07/[address] [phone] Provider, Abstract NO ADDRESS ON FILE Social History Tobacco Use Types Packs/Day Years Used Date Smoking Tobacco: Never Smokeless Tobacco: Never Alcohol Use Standard Drinks/Week Comments Never 0 (1 standard drink = 0.6 oz pur e alcohol) Sex and Gender Information Value Date Recorded Sex Assigned at Not on file Legal Sex Male 3:48 PM FABRICATOR FOAM RUBBER Gender Identity Not on file Sexual Orientation Not on file documented as of this encounter Plan of Treatment Upcoming Encounters Date Type Department Care Team (Late st Contact Info) Description 11/07/2025 8:40 AM FABRICATOR FOAM RUBBER Office Visit [address] [phone] Catalino Melgoza MD [facility] [address] [phone] documented as of this encounter Visit Diagnoses Not on filedocumented in this encounter Care Teams Supervisor Area Relationship Specialty Start Date End Date Catalino Melgoza MD [address] [place] [address] PCP - General Family Practice 12/31/22 documented as of this encounter
[2025-06-14 01:05] LABS: Hematocrit 43.0 % (37-53); Hemoglobin 14.40 g/dL (11.27-16.99); Mean Corpuscular HGB Conc 33.5 g/dL (30-55); Mean Corpuscular Hemoglobin 29.4 pg (27-33); Mean Corpuscular Volume 87.8 fl (82-101); Nucleated Red Blood Cells % 0 %; Platelet Count 248 10^3/cmm (157-399); Red Blood Count 4.90 10^6/uL (3.85-5.65); White Blood Count 9.26 10^3/uL (3.29-11.43)
--- NOTE | 2025-06-14 01:05 | W.ED.CHESTPA ---
HPI - Chest Pain General: Chief Complaint: ER Hold Stated Complaint: cp Time Seen by Provider: 06/14/25 00:51 History of Present Illness: 64-year-old male with a history of coronary disease. He has been stented twice in the last 2 weeks. He presents with chest pain since last evening at 5 PM. In the ambulance, he received aspirin, fentanyl, 3 sublingual nitroglycerin and has nitroglycerin paste on his chest. Related Data Home Medications ?Medication ?Instructions ?Recorded ?Confirmed triamcinolone acetonide 0.1 % 1 applic mucous membrane BID 06/10/25 06/10/25 dental paste Previous Rx's ?Medication ?Instructions ?Recorded nitroglycerin 0.4 mg sublingual 0.4 mg sublingual Q5M PRN Chest 06/05/25 tablet Pain 30 days #30 tabs aspirin 81 mg tablet,delayed 81 mg PO DAILY #90 tabs 06/09/25 release atorvastatin 40 mg tablet 40 mg PO BEDTIME #90 tabs 06/09/25 isosorbide mononitrate 30 mg 30 mg PO DAILY #90 tabs 06/09/25 tablet,extended release 24 hr metoprolol tartrate 25 mg tablet 12.5 mg (1/2 x 25 mg) PO 06/09/25 BID@0900,2100 #90 tabs clopidogrel 75 mg tablet 75 mg PO DAILY #90 tabs 06/12/25 Allergies Allergy/AdvReac Type Severity Reaction Status Date / Time Pork/Porcine Containing Allergy ALGY-Hives Verified 06/09/25 08:00 Products [facility] ED [facility]: Medical History (Updated 06/14/25 @ 03:49 by Clyde Tate DO) No pertinent past medical history Family History Father CAD (coronary artery disease) Brother CAD (coronary artery disease) Social History Smoking and tobacco/nicotine status: never used tobacco/nicotine Alcohol intake: never Substance/Drug Use: never Physical Exam Const: COMMON NORMALS: no acute distress GENERAL APPEARANCE: cooperative; not ill appearing and not frail appearing HENMT: COMMON NORMALS: normocephalic, atraumatic and Normal external nose present HEAD & SCALP: normocephalic and atraumatic FACE & SINUS: normal facial exam and face symmetric NOSE: Normal external nose present Eye: COMMON NORMALS: Equal, round and reactive pupils present and EOMs intact bilaterally PUPIL: Yes Equal, round and reactive pupils present Neck/C-Spine: GENERAL: Yes trachea midline Chest: CHEST: Yes Symmetrical chest wall rise Resp: COMMON NORMALS: normal respiratory effort, No retractions, No use of accessory muscles and clear to auscultation bilaterally AUSCULTATION: clear to auscultation bilaterally Cardio: COMMON NORMALS: regular rate and regular rhythm RATE: regular rate RHYTHM: regular rhythm GI: COMMON NORMALS: Normal to inspection, nondistended, normoactive bowel sounds present Extremity: COMMON NORMALS: no pedal edema Neuro: LILIANA COMA SCALE: document GCS findings Liliana coma scale eye opening: Spontaneous Liliana coma scale verbal response: Orientated Liliana coma scale motor response: Obey commands [place] coma scale total score: 15 SENSORY EXAM: Yes extremities (intact) Psych: COMMON NORMALS: speech normal SPEECH: Yes normal speech Skin: COMMON NORMALS: no rashes or lesions noted GENERAL SKIN EXAM: no rashes or lesions noted Course Vital Signs: Vital signs: Vital Signs Temperature 98.1 F 06/14/25 00:56 Pulse Rate 83 06/14/25 00:56 Respiratory Rate 18 06/14/25 01:59 Blood Pressure 141/99 06/14/25 00:56 Pulse Oximetry 95 06/14/25 01:59 Oxygen Delivery Me thod Nasal Cannula 06/14/25 00:56 Oxygen Flow Rate 1 06/14/25 00:56 MDM - Chest Pain Medical Decision Making Chest discomfort consistent with the patient is an equivalent in a patient who has had 2 stents on 2 separate occasions in the last 2 weeks. He is EKG is normal. His CBC and BMP are normal. His chest x-ray shows no acute findings. His lipase is 74. His BNP is 223. His delta troponin is 1.3 at 2 hours. Given his history, especially recently, he will be observed. Hospitalist agrees to see the patient. Lab Data 06/14/25 00:59 06/14/25 00:59 Radiology Impressions Chest X-Ray 06/14/25 00:52 IMPRESSION: No acute findings. Laboratory Results WBC 9.26 10^3/uL (3.29-11.43) 06/14/25 00:59 RBC 4.90 10^6/uL (3.85-5.65) 06/14/25 00:59 Hgb 14.40 g/dL (11.27-16.99) 06/14/25 00:59 Hct 43.0 % (37-53) 06/14/25 00:59 MCV 87.8 fl (82-101) 06/14/25 00:59 MCH 29.4 pg (27-33) 06/14/25 00: MCHC 33.5 g/dL (30-55) 06/14/25 00:59 RDW 12.9 % (12.1-15.1) 06/14/25 00:59 Plt Count 248 10^3/cmm (157-399) 06/14/25 00:59 MPV 9.6 fL (7.4-10.4) 06/14/25 00:59 Neut % (Auto) 61.2 % 06/14/25 00:59 Lymph % (Auto) 29.3 % 06/14/25 00:59 Tyrrell % (Auto) 7.9 % 06/14/25 00:59 Eos % (Auto) 0.8 % 06/14/25 00:59 Baso % (Auto) 0.4 % 06/14/25 00:59 Neut # (Auto) 5.67 10^3/uL (1.8-7.7) 06/14/25 00:59 Lymph # (Auto) 2.7 10^3/uL (0.8-4.8) 06/14/25 00:59 Tyrrell # (Auto) 0.7 10^3/uL (0.2-0.9) 06/14/25 00:59 Eos # (Auto) 0.1 10^3/uL (0.0-0.8) 06/14/25 00:59 Baso # (Auto) 0.0 10^3/uL (0.0-0.1) 06/14/25 00:59 Nucleated RBC % (auto) 0 % 06/14/25 00:59 Nucleated RBCs # 0.0 /100WBC 06/14/25 00:59 PT 13.70 SECONDS (12.1-14.9) 06/14/25 00:59 INR 0.98 (0.8-1.2) 06/14/25 00:59 APTT 27.4 SECONDS (23.9-36.7) 06/14/25 00:59 Sodium 137 mmol/L (136-145) 06/14/25 00:59 Potassium 3.5 mmol/L (3.5-5.1) 06/14/25 00:59 Chloride 101 mmol/L (98-107) 06/14/25 00:59 Carbon Dioxide 22 mmol/L (22-29) 06/14/25 00:59 Anion Gap 17.5 (5-19) 06/14/25 00:59 BUN 16 mg/dL (8-23) 06/14/25 00:59 Creatinine 1.1 mg/dL (0.7-1.2) 06/14/25 00:59 GFR Calculation 67.6 mL/min (90-130) L 06/14/25 00:59 Glucose 105 mg/dL (65-115) 06/14/25 00:59 Calculated Osmolality 286 mOsm/kg (285-295) 06/14/25 00:59 Calcium 8.9 mg/dL (8.5-10.5) 06/14/25 00:59 Total Bilirubin 0.4 mg/dL (0.15-1.2) 06/14/25 00:59 AST 16 U/L (0-40) 06/14/25 00:59 ALT 23 U/L (0-41) 06/14/25 00:59 Alkaline Phosphatase 105 U/L (40-130) 06/14/25 00:59 Troponin T Baseline 63 ng/L (0-15) H 06/14/25 00:59 Troponin T 120 Minute 64.28 ng/L (0-15) H 06/14/25 02:47 Delta Troponin T 1.28 ABS# (0-10) 06/14/25 02:47 NT-Pro-B Natriuret Pep 223 pg/mL (0-125) H 06/14/25 00:59 Total Protein 7.0 g/dL (6.6-8.7) 06/14/25 00:59 Albumin 4.4 g/dL (3.5-5.2) 06/14/25 00:59 Globulin 2.6 g/dL (1.3-4.6) 06/14/25 00:59 Lipase 74 U/L (13-60) H 06/14/25 00:59 All radiology interpretation(s) finalized by discharge Discharge Plan Discharge Patient Disposition: Placed in Observation Admit Provider: Tamra Fisher Clinical Impression: History of coronary artery disease, Chest pain Coding Level of Care Code ED Tool Liaison for margo Saez
[2025-06-14 01:17] LABS: INR 0.98 (0.8-1.2); Partial Thromboplastin Time 27.4 SECONDS (23.9-36.7); Prothrombin Time 13.70 SECONDS (12.1-14.9)
[2025-06-14 01:25] LABS: Troponin(5th) Baseline 63 ng/L (0-15)
[2025-06-14 01:33] LABS: Alanine Aminotransferase 23 U/L (0-41); Albumin Level 4.4 g/dL (3.5-5.2); Alkaline Phosphatase 105 U/L (40-130); Anion Gap 17.5 (5-19); Aspartate Amino Transferase 16 U/L (0-40); Blood Urea Nitrogen 16 mg/dL (8-23); Calcium 8.9 mg/dL (8.5-10.5); Carbon Dioxide 22 mmol/L (22-29); Chloride 101 mmol/L (98-107); Creatinine Clr Calc Pharmacy 72.8653; Globulin 2.6 g/dL (1.3-4.6); Glucose 105 mg/dL (65-115); NT Pro B Type Natriuretic Pept 223 pg/mL (0-125); Osmolality Calculated 286 mOsm/kg (285-295); Potassium 3.5 mmol/L (3.5-5.1); Sodium 137 mmol/L (136-145); Total Protein 7.0 g/dL (6.6-8.7)
[2025-06-14 01:38] LABS: Lipase 74 U/L (13-60)
[2025-06-14] MEDS: morphine 4 mg/mL SDV 1 mL IVP ×2 (01:59→05:35)
[2025-06-14] MEDS: ondansetron 2 mg/ML SDV 2 mL 4 MG IVP (01:59)
[2025-06-14] MEDS: lidocaine 2% viscous 15 ML, aluminum-mag hydrox-simethicon 30 ML, sucralfate oral liq 1 GM PO (02:00)
[2025-06-14 03:18] LABS: Troponin 5 2HR 64.28 ng/L (0-15); Troponin 5 2HR Delta 1.28 ABS# (0-10)
--- NOTE | 2025-06-14 05:25 | PM.HP ---
Providers/Chief Complaint Admitting Physician: Tamra Fisher MD Chief Complaint: cp History of Present Illness Eliecer Ngo is a 64 year old male who was recently admitted to the hospital on June 02, 2025 with angina. He underwent cardiac catheterization which revealed high-grade lesion in the proximal PDA branch of the right coronary artery. He underwent PCI of this lesion. He was discharged from the hospital on June 05 but then returned on June 10, 2025 when he continued to have chest pain. His D-dimer was mildly elevated and proceeded with a CTA of the chest which was negative for any PE. Did not show any signs of pericardial effusion and PCI which showed mild diffuse intimal irregularities in the Left anterior descending artery and the circumflex artery. The right coronary artery was found to have patent stented area of the ostium of the PDA. The PLV branch was found to have a 70% eccentric lesion at the midsegment. He underwent stent placement into this segment on June 11, 2025 and discharged on June 12. He returns today with ongoing chest pain which was improved but not completely relieved after having received aspirin fentanyl and sublingual nitro Via the EMS. EKG today does not show any acute ST-T wave changes. Baseline troponin is at 63, 2 hours at 64. When compared to previous, on June 10 this was at 8.7 preintervention. Patient states that he felt asymptomatic on the day of his discharge, however upon returning home and resuming his activities his chest pain started again. Review of Systems General: Reports: 10 or more systems reviewed and unremarkable except in HPI and below Const: Denies: fever(s), chills or body aches Eyes: Denies: change in vision, blurry vision or photophobia ENMT: Reports: hoarseness; Denies: throat pain, enlarged tonsils, odynophagia or nasal congestion Card: Denies: chest pain, palpitations, irregular heart rhythm, edema, swelling of feet/ankles, lightheadedness, pre-syncope, dyspnea on exertion or orthopnea Resp: Denies: dyspnea, productive cough, non-productive cough, wheezing, stridor, pain on inspiration, change in phlegm color, hemoptysis or chest congestion GI: Denies: abdominal pain, nausea, vomiting, hematemesis, coffee ground emesis, dysphagia, heartburn, diarrhea, constipation, GI cramping, change in stool character, hematochezia or melena : Denies: flank pain, dysuria, urinary frequency, urinary urgency, urinary hesitancy or hematuria Musc: Denies: neck pain, back pain, extremity pain, joint swelling, joint warmth or deformity Neuro: Denies: headache(s), numbness in extremities, weakness in extremities, sensory changes, difficulty walking, frequent falls, dizziness, vertigo, behavioral changes, Slurred speech present or seizure-like activity Psych: Denies: anxiety, depression, suicidal ideation or homicidal ideation Endo: Denies: polyuria, polydipsia, tired all the time, cold intolerance or hot flashes Mike/Lymph: Denies: easy bruising or easy bleeding Medications/Allergies Home Medications ?Medication ?Instructions ?Recorded ?Confirmed ?Last Taken ?Type nitroglycerin 0.4 mg sublingual 0.4 mg sublingual Q5M PRN Chest 06/05/25 06/10/25 06/10/25 Rx tablet Pain 30 days #30 tabs aspirin 81 mg tablet,delayed 81 mg PO DAILY #90 tabs 06/09/25 06/10/25 06/10/25 Rx release atorvastatin 40 mg tablet 40 mg PO BEDTIME #90 tabs 06/09/25 06/10/25 06/09/25 Rx isosorbide mononitrate 30 mg 30 mg PO DAILY #90 tabs 06/09/25 06/10/25 06/09/25 Rx tablet,extended release 24 hr metoprolol tartrate 25 mg tablet 12.5 mg (1/2 x 25 mg) PO 06/09/25 06/10/25 06/09/25 Rx BID@0900,2100 #90 tabs triamcinolone acetonide 0.1 % 1 applic mucous membrane BID 06/10/25 06/10/25 06/09/25 History dental paste clopidogrel 75 mg tablet 75 mg PO DAILY #90 tabs 06/12/25 Unknown Rx Allergies Allergy/AdvReac Type Severity Reaction Status Date / Time Pork/Porcine Containing Allergy ALGY-Hives Verified 06/09/25 08:00 Products PFSH Acute PFSH: Medical History No pertinent past medical history Family History Father CAD (coronary artery disease) Brother CAD (coronary artery disease) Social History Smoking and tobacco/nicotine status: never used tobacco/nicotine Alcohol intake: never Substance/Drug Use: never Vitals/I&O/Wt Last Vital Signs Temp 98.1 F 06/14/25 00:56 Pulse 83 06/14/25 00:56 Resp 18 06/14/25 01:59 BP 141/99 06/14/25 00:56 Pulse Ox 95 06/14/25 01:59 O2 Del Method Nasal Cannula 06/14/25 00:56 O2 Flow Rate 1 06/14/25 00:56 Weight last 48 hrs Weight 95.118 kg Physical Exam Narrative: General: No acute distress, AO x3 HEENT: PERRLA, pupils bilaterally equal and reactive, pallors not present Chest: Normal vesicular breath sounds, no added sounds, equal good air entry bilaterally CVS: S1-S2 regular, no murmurs, no tachycardia, no gallops, no rubs Abdomen: Soft, nontender, no organomegaly, bowel sounds present Neuro: No focal deficits, no facial deformity, AO x3, power 5/5 in all limbs Data 06/14/25 00:59 06/14/25 00:59 Other Labs: Radiology Impressions Chest X-Ray 06/14/25 00:52 IMPRESSION: No acute findings. Laboratory Results WBC 9.26 10^3/uL (3.29-11.43) 06/14/25 00:59 RBC 4.90 10^6/uL (3.85-5.65) 06/14/25 00:59 Hgb 14.40 g/dL (11.27-16.99) 06/14/25 00:59 Hct 43.0 % (37-53) 06/14/25 00:59 MCV 87.8 fl (82-101) 06/14/25 00:59 MCH 29.4 pg (27-33) 06/14/25 00:59 MCHC 33.5 g/dL (30-55) 06/14/25 00:59 RDW 12.9 % (12.1-15.1) 06/14/25 00:59 Plt Count 248 10^3/cmm (157-399) 06/14/25 00:59 MPV 9.6 fL (7.4-10.4) 06/14/25 00:59 Neut % (Auto) 61.2 % 06/14/25 00:59 Lymph % (Auto) 29.3 % 06/14/25 00:59 Ceiba % (Auto) 7.9 % 06/14/25 00:59 Eos % (Auto) 0.8 % 06/14/25 00:59 Baso % (Auto) 0.4 % 06/14/25 00:59 Neut # (Auto) 5.67 10^3/uL (1.8-7.7) 06/14/25 00:59 Lymph # (Auto) 2.7 10^3/uL (0.8-4.8) 06/14/25 00:59 Ceiba # (Auto) 0.7 10^3/uL (0.2-0.9) 06/14/25 00:59 Eos # (Auto) 0.1 10^3/uL (0.0-0.8) 06/14/25 00:59 Baso # (Auto) 0.0 10^3/uL (0.0-0.1) 06/14/25 00:59 Nucleated RBC % (auto) 0 % 06/14/25 00:59 Nucleated RBCs # 0.0 /100WBC 06/14/25 00:59 PT 13.70 SECONDS (12.1-14.9) 06/14/25 00:59 INR 0.98 (0.8-1.2) 06/14/25 00:59 APTT 27.4 SECONDS (23.9-36.7) 06/14/25 00:59 Sodium 137 mmol/L (136-145) 06/14/25 00:59 Potassium 3.5 mmol/L (3.5-5.1) 06/14/25 00:59 Chloride 101 mmol/L (98-107) 06/14/25 00:59 Carbon Dioxide 22 mmol/L (22-29) 06/14/25 00:59 Anion Gap 17.5 (5-19) 06/14/25 00:59 BUN 16 mg/dL (8-23) 06/14/25 00:59 Creatinine 1.1 mg/dL (0.7-1.2) 06/14/25 00:59 GFR Calculation 67.6 mL/min (90-130) L 06/14/25 00:59 Glucose 105 mg/dL (65-115) 06/14/25 00:59 Calculated Osmolality 286 mOsm/kg (285-295) 06/14/25 00:59 Calcium 8.9 mg/dL (8.5-10.5) 06/14/25 00:59 Total Bilirubin 0.4 mg/dL (0.15-1.2) 06/14/25 00:59 AST 16 U/L (0-40) 06/14/25 00:59 ALT 23 U/L (0-41) 06/14/25 00:59 Alkaline Phosphatase 105 U/L (40-130) 06/14/25 00:59 Troponin T Baseline 63 ng/L (0-15) H 06/14/25 00:59 Troponin T 120 Minute 64.28 ng/L (0-15) H 06/14/25 02:47 Delta Troponin T 1.28 ABS# (0-10) 06/14/25 02:47 NT-Pro-B Natriuret Pep 223 pg/mL (0-125) H 06/14/25 00:59 Total Protein 7.0 g/dL (6.6-8.7) 06/14/25 00:59 Albumin 4.4 g/dL (3.5-5.2) 06/14/25 00:59 Globulin 2.6 g/dL (1.3-4.6) 06/14/25 00:59 Lipase 74 U/L (13-60) H 06/14/25 00:59 A&P Assessment and plan 1. Chest pain, unspecified type: Patient with past medical history as above presenting today with chest pain. His EKG does not show any acute ST-T wave changes. Baseline troponin is today at 64, remaining stable at 2 hours. 6-hour trend is currently awaited. This may be digital sales representative of recent coronary intervention. CTA of the chest taken on June 10, 2025 and June 02, 2025 were both negative for PE. Chest x-ray today without any infiltrates. Patient continues to have ongoing chest pain in spite of having a Nitropatch on at this time. Recent echocardiogram from June 10, 2025 had shown EF of 50 to 55% with relative hypokinesia of the septum and inferior wall segments. There was no pericardial effusion. We will go ahead and switch him to a nitroglycerin infusion Added as needed morphine for pain management. Case was discussed with cardiology and discussed initiating anticoagulation. Given no concerning changes on EKG, 2-hour troponin without an upward trend, recent coronary intervention with placement of stents, overall suspicion of stent stenosis is low. Initiation of anticoagulation has therefore been deferred after discussion with cardiology. Possibly coronary vasospasm may be a cause of his chest pain. Add ranolazine 500 mg p.o. twice daily and monitor for improvement. Plan: DVT prophylaxis: Fondaparinux 2.5 mg subcutaneously daily. Patient reports allergy to pork products. States that last time he had heparin he developed a blistering rash over the arm. Full code PDMP PDMP Reviewed: Not Reviewed Attestations Medical Necessity Statement*: Greater than 2 midnight stay is currently anticipated, currently on nitroglycerin infusion, awaiting 6-hour troponin trend, cardiology assessment Coding Level of Care Code Acute Code for Chg Fwd High MDM includes number and complexity of problems actively addressed during encounter, amount and/or complexity of data reviewed/ordered and described risk of complication, morbidity or mortality of management as documented Diagnoses Chest pain, unspecified type R07.9 Chest pain type: unspecified
--- NOTE | 2025-06-14 05:30 | ECG_ITS ---
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
[2025-06-14] MEDS: nitroglycerin drip 50 MG/250 ML PREMIX IV (06:22)
--- NOTE | 2025-06-14 06:52 | ECG_ITS ---
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
[2025-06-14 07:01] LABS: Troponin 5 6HR 61.65 ng/L (0-15)
[2025-06-14 07:02] LABS: Troponin 5 6HR Delta -1.35 ng/L (0-12)
--- NOTE | 2025-06-14 07:56 | PC.NURSE ---
Addendum entered by Mellisa Bingham RN 06/14/25 11:39: ORIGINAL NURSING NOTE WRITTEN BY MELLISA BINGHAM RN NOT GABRIELLA BLUE RN. Original Note: PER VERBAL ORDER FROM TO STOP ATORVASTATIN. PER TO GIVE 15MG IV TORODOL FOR CHEST PAIN.
[2025-06-14] MEDS: ranolazine (12HR) 500 mg Tablet PO ×2 (08:31→18:36)
--- NOTE | 2025-06-14 08:36 | PM.CONSULT ---
Providers/Reason For Consult Consulting Physician/Specialty*: Dr Ree Moody, cardiology Reason for Consult*: chest pain Requesting Physician: Tamra Fisher MD Attending Physician: Tamra Fisher MD History of Present Illness History of Present Illness Eliecer Ngo is a 64 year old male with past medical history of hypertension, dyslipidemia, CAD with previous admissions 06/02/2025, 06/10/2025 for chest pain. During the first admission he was found to have significant stenosis of the proximal PDA of the RCA treated with PCI. He continued to have chest pain and returned to the hospital on 06/10/2025, underwent coronary angiogram again finding no significant disease of the left main, LAD, left circumflex, RCA patent previously placed ostial PDA stent patent PLV was a moderate caliber vessel with approximately 80% stenosis which was treated with balloon angioplasty and DIMA x 1. He returned to the emergency room during the night last night with chest pain. Troponin series: 63-> 64-> 61. During his previous admission on the , troponin series was 11 -> 8-> 9. Echocardiogram on 06/10/2025 revealed LVEF 50 to 55%. No ischemic EKG changes noted. At the time of my exam he is on a nitroglycerin infusion. He notes heaviness in his chest with exertion, experienced when walking from the hospital to his car at discharge a few days ago and has been persistent. Review of Systems Const: Denies: fever(s), chills, change in weight, fatigue or diaphoresis Eyes: Denies: change in vision ENMT: Denies: epistaxis Card: Reports: chest pain; Denies: palpitations, irregular heart rhythm, edema, syncope, pre-syncope, dyspnea on exertion, orthopnea or leg pain with exertion Resp: Denies: dyspnea, productive cough or wheezing GI: Denies: nausea, vomiting, hematemesis, hematochezia or melena : Denies: hematuria Musc: Denies: extremity swelling Mike/Lymph: Denies: easy bruising or easy bleeding Medications/Allergies Home Medications ?Medication ?Instructions ?Recorded ?Confirmed ?Last Taken ?Type nitroglycerin 0.4 mg sublingual 0.4 mg sublingual Q5M PRN Chest 06/05/25 06/14/25 06/10/25 Rx tablet Pain 30 days #30 tabs aspirin 81 mg tablet,delayed 81 mg PO DAILY #90 tabs 06/09/25 06/14/25 06/13/25 Rx release atorvastatin 40 mg tablet 40 mg PO BEDTIME #90 tabs 06/09/25 06/14/25 06/13/25 Rx isosorbide mononitrate 30 mg 30 mg PO DAILY #90 tabs 06/09/25 06/14/25 06/13/25 Rx tablet,extended release 24 hr metoprolol tartrate 25 mg tablet 12.5 mg (1/2 x 25 mg) PO 06/09/25 06/14/25 06/13/25 Rx BID@0900,2100 #90 tabs triamcinolone acetonide 0.1 % 1 applic mucous membrane BID PRN 06/10/25 06/14/25 06/09/25 History dental paste dental clopidogrel 75 mg tablet 75 mg PO DAILY #90 tabs 06/12/25 06/14/25 06/13/25 Rx mupirocin 2 % topical ointment 1 applic topical DAILY PRN Skin 06/14/25 06/14/25 Unknown History Irritation Allergies Allergy/AdvReac Type Severity Reaction Status Date / Time Pork/Porcine Containing Allergy ALGY-Hives Verified 06/09/25 08:00 Products Current Medications Generic Name Dose Route Start Last Admin Trade Name Victor M PRN Reason Stop Dose Admin Aspirin 81 mg 06/14/25 09:00 06/14/25 08:30 Aspirin 81 Mg Ec Tablet PO 81 mg DAILY DIOGO Administration Clopidogrel Bisulfate 75 mg 06/14/25 09:00 06/14/25 08:30 Clopidogrel 75 Mg Tablet PO 75 mg DAILY DIOGO Administration Fondaparinux 2.5 mg 06/14/25 09:00 06/14/25 08:30 Fondaparinux 2.5 Mg/0.5 Ml Syringe SUBCUT 2.5 mg DAILY DIOGO Administration Nitroglycerin/Dextrose 50 mg in 250 mls @ 0 mls/hr 06/14/25 06:00 06/14/25 06:22 Nitroglycerin Drip IV 10 mcg/min .Q0M DIOGO 3 mls/hr Protocol Administration Per Protocol Pantoprazole Sodium 40 mg 06/14/25 09:00 06/14/25 08:[address] 40 Mg Tablet PO 40 mg DAILY DIOGO Administration Ranolazine 500 mg 06/14/25 09:00 06/14/25 08:31 Ranolazine (12hr) 500 Mg Tablet PO 500 mg BID DIOGO Administration PFSH Acute PFSH: Medical History No pertinent past medical history Family History Father CAD (coronary artery disease) Brother CAD (coronary artery disease) Social History Smoking and tobacco/nicotine status: never used tobacco/nicotine Alcohol intake: never Substance/Drug Use: never Vitals/I&O/Wt Last Vital Signs Temp 98.1 F 06/14/25 00:56 Pulse 91 06/14/25 06:00 Resp 19 H 06/14/25 06:00 BP 139/83 06/14/25 06:00 Pulse Ox 96 06/14/25 06:00 O2 Del Method Nasal Cannula 06/14/25 06:00 O2 Flow Rate 1.5 06/14/25 06:00 Weight last 48 hrs Weight 209 lb 11.2 oz Physical Exam Const: COMMON NORMALS: no acute distress and patient oriented x3 GENERAL APPEARANCE: cooperative and comfortable ORIENTATION/CONSCIOUSNESS: Yes awake, Yes oriented to person, Yes oriented to place and Yes oriented to time Chest: COMMONS NORMALS: normal inspection of the chest and normal palpation of entire chest wall CHEST: Yes Symmetrical chest wall rise Resp: COMMON NORMALS: normal respiratory effort, No retractions, No use of accessory muscles and clear to auscultation bilaterally EFFORT & INSPECTION: Yes symmetric chest movement AUSCULTATION: clear to auscultation bilaterally Cardio: COMMON NORMALS: regular rate, regular rhythm, S1 normal heart sound present, S2 normal heart sound present, No gallops present (Cardio), No clicks present (Cardio), No murmurs present (Cardio) and No rub (Cardio) RATE: regular rate RHYTHM: regular rhythm HEART SOUNDS: S1 normal heart sound present and S2 normal heart sound present PERIPHERAL PULSES: radial pulses present Extremity: COMMON NORMALS: no pedal edema Neuro: COMMON NORMALS: patient oriented x3 and moves all extremities SENSORIUM/ORIENTATION: Yes oriented to person, Yes oriented to place and Yes oriented to time Data 06/14/25 00:59 06/14/25 00:59 A&P Assessment and plan 1. Coronary artery disease with recent acute coronary syndrome and history of coronary revascularization: 2. Dyslipidemia: Plan: Chest pain differentials included pericarditis, anxiety, costochondritis, ACS. Troponin trend did not increase. EKGs did not show any acute ST or T wave changes. A CK was checked to rule out rhabdomyolysis from statin medication, it is normal at 41. Will suggest to stop nitroglycerin infusion, give one-time dose of Xanax, and observe this afternoon. Continue aspirin, Plavix, metoprolol, Ranexa. PDMP PDMP Reviewed: Not Reviewed Coding Level of Care Code Acute Code for [facility] Fwd Diagnoses Coronary artery disease with recent acute coronary syndrome and history of coronary revascularization I25.10; I24.9; Z98.61 Dyslipidemia E78.5
--- NOTE | 2025-06-14 11:42 | PC.NURSE ---
ALL DOCUMENTATION AFTER 0700 DOCUMENTED BY THIS NURSE(BENSON ROJAS) NOT GABRIELLA BLUE.
[2025-06-14] MEDS: morphine 4 mg/mL SDV 1 mL 2 MG IVP (21:05)
[2025-06-15] VITALS: BP 109/61; PULSE 64; RESP 16; TEMP 36.7; O2SAT 96
[2025-06-15 03:31] LABS: Hematocrit 43.1 % (37-53); Hemoglobin 14.40 g/dL (11.27-16.99); Mean Corpuscular HGB Conc 33.4 g/dL (30-55); Mean Corpuscular Hemoglobin 29.6 pg (27-33); Mean Corpuscular Volume 88.7 fl (82-101); Nucleated Red Blood Cells % 0 %; Platelet Count 226 10^3/cmm (157-399); Red Blood Count 4.86 10^6/uL (3.85-5.65); White Blood Count 7.72 10^3/uL (3.29-11.43)
[2025-06-15 03:56] LABS: Alanine Aminotransferase 19 U/L (0-41); Albumin Level 3.9 g/dL (3.5-5.2); Alkaline Phosphatase 102 U/L (40-130); Anion Gap 17.2 (5-19); Aspartate Amino Transferase 14 U/L (0-40); Blood Urea Nitrogen 20 mg/dL (8-23); Calcium 8.7 mg/dL (8.5-10.5); Carbon Dioxide 25 mmol/L (22-29); Chloride 101 mmol/L (98-107); Creatinine Clr Calc Pharmacy 72.7421; Globulin 2.8 g/dL (1.3-4.6); Glucose 105 mg/dL (65-115); Osmolality Calculated 291 mOsm/kg (285-295); Potassium 4.2 mmol/L (3.5-5.1); Sodium 139 mmol/L (136-145); Total Protein 6.7 g/dL (6.6-8.7)
[2025-06-15 04:00] VITALS: BP 124/81; PULSE 65; RESP 16; O2SAT 96
[2025-06-15 06:00] VITALS: PULSE 64
[2025-06-15 07:22] VITALS: BP 131/84; PULSE 77; RESP 14; TEMP 36.7; O2SAT 94
--- NOTE | 2025-06-15 08:06 | PC.NURSE ---
nurse asked patient what his pain level was and patient stated 5/6 but he sated he didn't want any morphine, he just wanted the doctor to come in and try to get to the bottom of things .
[2025-06-15] MEDS: ranolazine (12HR) 500 mg Tablet PO (08:10)
--- NOTE | 2025-06-15 08:15 | P.PN_ITS ---
<Statement entered by Fab Petersen M.D - 06/18/25 10:58> Patient was cared for in conjunction with an advanced practice practitioner.? I reviewed the chart and all pertinent data including imaging, telemetry, and laboratory results.? I discussed the patient in detail with the advanced practice practitioner.? Please see?their note for progress note, testing results and agreed upon plan of care for the patient. Had a detailed discussion with patient. With recent 2 cardiac catheterizations and PCIs along with recent CT scan, chest pain does not appear to be secondary to epicardial CAD. Likely microvascular dysfunction. Can be discharged home on Ranexa and Imdur. Outpatient cardiology follow-up Subjective 2 Subjective: No events noted overnight. He continues to have the same sharp reproducible chest pain, as well as a subjective feeling of heaviness. Blood pressure has been controlled, he is euvolemic. Vitals/I&O/Wt Last Vital Signs Temp 98.3 F 06/15/25 11:34 Pulse 75 06/15/25 11:34 Resp 22 H 06/15/25 11:34 BP 126/92 06/15/25 11:34 Pulse Ox 96 06/15/25 11:34 O2 Del Method Nasal Cannula 06/15/25 07:22 O2 Flow Rate 1.5 06/15/25 04:00 06/14/25 06/15/25 06/15/25 22:59 06:59 14:59 Intake Total 120 / 126 360 / 360 Output Total 250 / 250 Balance -130 / -124 360 / 360 Weight last 48 hrs Weight 210 lb 9.6 oz Weight 209 lb Weight 209 lb 11.2 oz Physical Exam 2 Const: COMMON NORMALS: no acute distress and patient oriented x3 GENERAL APPEARANCE: cooperative and comfortable ORIENTATION/CONSCIOUSNESS: Yes awake, Yes oriented to person, Yes oriented to place and Yes oriented to time Chest: COMMONS NORMALS: normal inspection of the chest and normal palpation of entire chest wall CHEST: Yes Symmetrical chest wall rise Resp: COMMON NORMALS: normal respiratory effort, No retractions, No use of accessory muscles and clear to auscultation bilaterally EFFORT & INSPECTION: Yes symmetric chest movement AUSCULTATION: clear to auscultation bilaterally Cardio: COMMON NORMALS: regular rate, regular rhythm, S1 normal heart sound present, S2 normal heart sound present, No gallops present (Cardio), No clicks present (Cardio), No murmurs present (Cardio) and No rub (Cardio) RATE: r egular rate RHYTHM: regular rhythm HEART SOUNDS: S1 normal heart sound present and S2 normal heart sound present PERIPHERAL PULSES: radial pulses present Extremity: COMMON NORMALS: no pedal edema Neuro: COMMON NORMALS: patient oriented x3 and moves all extremities S ENSORIUM/ORIENTATION: Yes oriented to person, Yes oriented to place and Yes oriented to time Data 06/15/25 03:14 06/15/25 03:14 A&P Assessment and plan 1. Non-cardiac chest pain: 2. Coronary artery disease with recent acute coronary syndrome and history of coronary revascularization: 3. Dyslipidemia: Plan: He has been monitored closely and no EKG changes or troponin elevation noted. This chest pain is felt to be noncardiac. He can be discharged home with Ranexa, discussed with hospitalist service regarding possible anxiety medication. PDMP PDMP Reviewed: Not Reviewed Attestations 2 Medical Necessity Statement*: Planned discharge Coding Level of Care Code Acute Code for [facility] Fwd Diagnoses Non-cardiac chest pain R07.89 Coronary artery disease with recent acute coronary syndrome and history of coronary revascularization I25.10; I24.9; Z98.61 Dyslipidemia E78.5
--- NOTE | 2025-06-15 11:25 | P.DS_ITS ---
Discharge Providers Date of Admission: 06/14/25 03:10 Date of Discharge: June 15, 2025 Attending Provider at Admission: Tamra Fisher MD Attending Provider at Discharge: Sylvia Campoverde MD Consults: DR MOODY Primary Care Provider: PCP Diagnoses at Discharge Discharge Diagnosis 1. Coronary artery disease with recent acute coronary syndrome and history of co ronary revascularization: Details from hospital stay: S/P PCI ON 06/11/2025 2. Dyslipidemia: Reason for Visit 2 Reason for Visit: cp Hospital Course Hospital Course Eliecer Ngo is a 64 year old male who was recently admitted to the hospital on June 02, 2025 with angina. He underwent cardiac catheterization which revealed high-grade lesion in the proximal PDA branch of the right coronary artery. He underwent PCI of this lesion. He was discharged from the hospital on June 05 but then returned on June 10, 2025 when he continued to have chest pain. His D-dimer was mildly elevated and proceeded with a CTA of the chest which was negative for any PE. Did not show any signs of pericardial effusion and PCI which showed mild diffuse intimal irregularities in the Left anterior descending artery and the circumflex artery. The right coronary artery was found to have patent stented area of the ostium of the PDA. The PLV branch was found to have a 70% eccentric lesion at the midsegment. He underwent stent placement into this segment on June 11, 2025 and discharged on June 12. He returns today with ongoing chest pain which was improved but not completely relieved after having received aspirin fentanyl and sublingual nitro Via the EMS. EKG today does not show any acute ST-T wave changes. Baseline troponin is at 63, 2 hours at 64. When compared to previous, on June 10 this was at 8.7 preintervention. Patient states that he felt asymptomatic on the day of his discharge, however upon returning home and resuming his activities his chest pain started again. Patient has been seen and evaluated and cardiology Dr. Moody was consulted and had evaluated records and also saw the patient. EKG did not show any ischemia. Differentials that have been given was anxiety disorder pericarditis and other source of noncardiac chest pain. Patient correct of the chest pain is very atypical with sharp pain upon movement. And reproducible chest pain upon touching the chest wall. With this doctor can was comfortable to have the patient discharge and talk to the patient that he needed to be discharged today and to follow-up with them within the next 2 weeks. And also would like the patient to be on antianxiety and I had given patient one-time dose per the instruction of the cardiology with Xanax that did not help him much yesterday. I have now initiated to have patient have both Spiriva 10 mg twice daily to begin with. Patient will have a dose prior to leaving the hospital. Physical Exam Narrative: General The patient is in no apparent distress HEENT normocephalic atraumatic neck neck is supple cardiovascular heart rate is regular lungs are pretty much clear abdomen soft nontender nondistended unremarkable extremities intact no edema has good pulses neurology has no focality lab studies lab studies reviewed and noted. Discharge Data Studies Completed and Pending Completed Studies During Hospitalization Category Date Time Status XR chest 1V portable [id number] Stat Exams 06/14/25 00:52 Completed Radiology Impressions Chest X-Ray 06/14/25 00:52 IMPRESSION: No acute findings. Laboratory Results WBC 7.72 10^3/uL (3.29-11.43) 06/15/25 03:14 RBC 4.86 10^6/uL (3.85-5.65) 06/15/25 03:14 Hgb 14.40 g/dL (11.27-16.99) 06/15/25 03:14 Hct 43.1 % (37-53) 06/15/25 03:14 MCV 88.7 fl (82-101) 06/15/25 03:14 MCH 29.6 pg (27-33) 06/15/25 03:14 MCHC 33.4 g/dL (30-55) 06/15/25 03:14 RDW 12.9 % (12.1-15.1) 06/15/25 03:14 Plt Count 226 10^3/cmm (157-399) 06/15/25 03:14 MPV 9.6 fL (7.4-10.4) 06/15/25 03:14 Neut % (Auto) 60.2 % 06/15/25 03:14 Lymph % (Auto) 29.0 % 06/15/25 03:14 Burt % (Auto) 8.4 % 06/15/25 03:14 Eos % (Auto) 1.3 % 06/15/25 03:14 Baso % (Auto) 0.5 % 06/15/25 03:14 Neut # (Auto) 4.64 10^3/uL (1.8-7.7) 06/15/25 03:14 Lymph # (Auto) 2.2 10^3/uL (0.8-4.8) 06/15/25 03:14 Burt # (Auto) 0.7 10^3/uL (0.2-0.9) 06/15/25 03:14 Eos # (Auto) 0.1 10^3/uL (0.0-0.8) 06/15/25 03:14 Baso # (Auto) 0.0 10^3/uL (0.0-0.1) 06/15/25 03:14 Nucleated RBC % (auto) 0 % 06/15/25 03:14 Nucleated RBCs # 0.0 /100WBC 06/15/25 03:14 PT 13.70 SECONDS (12.1-14.9) 06/14/25 00:59 INR 0.98 (0.8-1.2) 06/14/25 00:59 APTT 27.4 SECONDS (23.9-36.7) 06/14/25 00:59 Sodium 139 mmol/L (136-145) 06/15/25 03:14 Potassium 4.2 mmol/L (3.5-5.1) 06/15/25 03:14 Chloride 101 mmol/L (98-107) 06/15/25 03:14 Carbon Dioxide 25 mmol/L (22-29) 06/15/25 03:14 Anion Gap 17.2 (5-19) 06/15/25 03:14 BUN 20 mg/dL (8-23) 06/15/25 03:14 Creatinine 1.1 mg/dL (0.7-1.2) 06/15/25 03:14 GFR Calculation 67.6 mL/min (90-130) L 06/15/25 03:14 Glucose 105 mg/dL (65-115) 06/15/25 03:14 Calculated Osmolality 291 mOsm/kg (285-295) 06/15/25 03:14 Calcium 8.7 mg/dL (8.5-10.5) 06/15/25 03:14 Total Bilirubin 0.4 mg/dL (0.15-1.2) 06/15/25 03:14 AST 14 U/L (0-40) 06/15/25 03:14 ALT 19 U/L (0-41) 06/15/25 03:14 Alkaline Phosphatase 102 U/L (40-130) 06/15/25 03:14 Creatine Kinase 41 U/L (39-308) 06/14/25 06:30 Creatine Kinase Cancelled 06/14/25 06:30 Troponin T Baseline 63 ng/L (0-15) H 06/14/25 00:59 Troponin T 120 Minute 64.28 ng/L (0-15) H 06/14/25 02:47 Delta Troponin T 1.28 ABS# (0-10) 06/14/25 02:47 Troponin T Hi Sens 6Hr 61.65 ng/L (0-15) H 06/14/25 06:30 Troponin T Hi Sens 6Hr Delta -1.35 ng/L (0-12) L 06/14/25 06:30 NT-Pro-B Natriuret Pep 223 pg/mL (0-125) H 06/14/25 00:59 Total Protein 6.7 g/dL (6.6-8.7) 06/15/25 03:14 Albumin 3.9 g/dL (3.5-5.2) 06/15/25 03:14 Globulin 2.8 g/dL (1.3-4.6) 06/15/25 03:14 Lipase 74 U/L (13-60) H 06/14/25 00:59 Vitals Last Vital Signs Temp 98.0 F 06/15/25 07:22 Pulse 77 06/15/25 07:22 Resp 14 06/15/25 07:22 BP 131/84 06/15/25 07:22 Pulse Ox 94 06/15/25 07:22 O2 Del Method Nasal Cannula 06/15/25 07:22 O2 Flow Rate 1.5 06/15/25 04:00 Discharge Plan Discharge Patient Disposition: Home Condition: Stable Prescriptions: New ranolazine 500 mg Tablet Extended Release 12 Hr 500 mg PO BID Qty: 60 0RF buspirone 10 mg tablet 10 mg PO BID Qty: 60 0RF Continued aspirin 81 mg tablet,delayed release (DR/EC) 81 mg PO DAILY Qty: 90 3RF atorvastatin 40 mg tablet 40 mg PO BEDTIME Qty: 90 0RF isosorbide mononitrate 30 mg tablet extended release 24 hr 30 mg PO DAILY Qty: 90 0RF metoprolol tartrate 25 mg tablet 12.5 mg PO BID@0900,2100 Qty: 90 0RF nitroglycerin 0.4 mg Tablet, Sublingual 0.4 mg sublingual Q5M PRN (Reason: Chest Pain) 30 Days Qty: 30 0RF clopidogrel 75 mg Tablet 75 mg PO DAILY Qty: 90 0RF triamcinolone acetonide 0.1 % paste 1 applic mucous membrane BID PRN (Reason: dental ) Qty: 1 0RF Discontinued mupirocin 2 % ointment 1 applic TOPICAL DAILY PRN (Reason: Skin Irritation) Natural Sciences Department Chair OK for DC: Cardiology and Family Medicine Discharge Order = DC NOW: Discharge Order (Routine); Ordered 06/15/25 Ordered By: Sylvia Campoverde Referrals: Catalino Melgoza [Referring, Family Practice] - 06/20/25 3:00 pm Referral Note: Please arrive at 2:45 with insurance card and discharge papers Discharge Diet: Advance as tolerated and Cardiac Discharge Activity: Resume usual activity Patient Instructions: Ranolazine (By mouth) (Ranexa, Aspruzyo), Coronary Artery Disease (DC), Chest Pain (DC), Opioid Safety, Patient Portal & Marilyn Instructions Activity Restrictions/Additional Instructions: follow UP with DR Moody IN 2WEEKS AND YOUR PRIMARY IN 1 WEEK Discharge Attestations Time Spent in Discharge Care*: less than 30 min Specific Discharge Activities: Other discharge activites (optional): Activities as tolerated. Time Spent in Smoking Cessation: 3 to 10 minutes Quality Metrics Clinical Quality Measures [ No reported AMI, CVA or VTE this stay] Coding Level of Care Code 10338 Diagnoses Coronary artery disease with recent acute coronary syndrome and history of coronary revascularization I25.10; I24.9; Z98.61 Dyslipidemia E78.5 Time Spent (min) 30
[2025-06-15 11:33] VITALS: BP 131/84; PULSE 89; RESP 20; TEMP 37.1; O2SAT 92
[2025-06-15 11:34] VITALS: BP 126/92; PULSE 75; RESP 22; TEMP 36.8; O2SAT 96
--- OUTSIDE RECORDS SUMMARY | 2025-06-15 14:10 | XMS_ITS | Encounter Summary ---
Author Organization [facility] Address [address] [place] [address] Care Team Providers Care Yield Engineer Name Role Phone Catalino Melgoza MD Primary Care Provider [phone] Reason for Visit * Reason Comments Chest Pain Pt reports to the ed with co CP. Pt reports that he has had 2 cardiac stent placed over the last 2 weeks Encounter Details Date Type Department Care Team (Late st Contact Info) Description 06/15/2025 2:10 PM CDT - 06/15/2025 5:51 PM CDT Emergency [facility] Emergency Medicine [address] [phone] Marina Chen MD [address] [address] Musculoskeletal chest pain (Primary Dx) Discharge Disposition: Home or Self Care Social History Tobacco Use Types Packs/Day Years Used Date Smoking Tobacco: Never Smokeless Tobacco: Never Alcohol Use Standard Drinks/Week Comments Never 0 (1 standard drink = 0.6 oz pur e alcohol) Sex and Gender Information Value Date Recorded Sex Assigned at Not on file Legal Sex Male 3:48 PM DATA BASE ADMINISTRATOR Gender Identity Not on file Sexual Orientation Not on file documented as of this encounter Last Filed Vital Signs Vital Sign Reading Time Taken Comments Blood Pressure 143/94 06/15/2025 5:45 PM CDT Pulse 93 06/15/2025 5:45 PM CDT Temperature 37.6 C (99.7 F) 06/15/2025 2:04 PM CDT Respiratory Rate 18 06/15/2025 2:04 PM CDT Oxygen Saturation 95% 06/15/2025 5:45 PM CDT Inhaled Oxygen Concentration - - Weight 93 kg (205 lb 1.6 oz) 06/15/2025 2:04 PM CDT Height 165.1 cm (5' 5 ) 06/15/2025 2:04 PM CDT Body Mass Index 34.13 06/15/2025 2:04 PM CDT documented in this encounter Discharge Instructions * Discharge Instructions* Marina Chen MD - 06/15/2025 5:42 PM CDT Please continue taking your regular medications including clopidogrel and aspirin for your heart. Please monitor yourself for any worsening symptoms and if you notice that there is any shortness ofbreath, chest pain or any other concerning symptoms, return to the ER for further evaluation. * Attachments The following attachments cannot be sent through Care Everywhere. * Chest Pain: Musculoskeletal (Ukrainian) * Prednisone (Ukrainian) documented in this encounter Medications at Time of Discharge predniSONE (DELTASONE) 20 mg tablet Take 1 Tablet (20 mg) by mouth daily with breakfast for 4 days. 4 Tablet 06/16/2025 atorvastatin (LIPITOR) 40 mg tablet Take 40 mg by mouth daily. nitroglycerin (NITROSTAT) 0.4 mg Tablet, Sublingual Place 0.4 mg under tongue every 5 minutes as needed for Chest Pain. aspirin (SARA CHEWABLE) 81 mg Tablet, Chewable Take 81 mg by mouth daily. metoprolol tartrate (LOPRESSOR) 25 mg tablet Take 25 mg by mouth 2 times daily. isosorbide mononitrate (IMDUR) 30 mg Extended Release 24 hour tablet Take 30 mg by mouth daily in the morning. clopidogreL (PLAVIX) 75 mg Tablet Take 75 mg by mouth. mupirocin (BACTROBAN) 2 % OintmentIndications: Blisters of multiple sites Apply to affected area daily. 30 Gram 1 06/07/2025 triamcinolone acetonide (KENALOG) 0.1 % PasteIndications:Ora l lesion Apply to affected area 2 times daily. 5 Gram 1 06/07/2025 hydrocortisone (PROCTOZONE-HC) 2.5 % cream with perineal applicatorIndication s:Ulcerative colitis with complication, unspecified location (CMS/HCC) Insert by rectum 3 times daily as needed for Hemorrhoids. 28 Gram 3 11/22/2024 simvastatin (ZOCOR) 20 mg tabletIndications:Hy perlipidemia, unspecified hyperlipidemia type Take 1 Tablet (20 mg) by mouth daily at bedtime. 90 Tablet 3 11/15/2024 amLODIPine (NORVASC) 5 mg tabletIndications:Be nign hypertension Take 1 Tablet (5 mg) by mouth daily. 90 Tablet 2 07/02/2024 cyclobenzaprine (FLEXERIL) 5 mg TabletIndications:Ne ck pain,Strain of neck muscle, initial encounter Take 1 Tablet (5 mg) by mouth 3 times daily as needed for Spasm. 30 Tablet 1 12/31/2022 documented as of this encounter Progress Notes * Tay Hassan RCP - 06/15/2025 2:29 PM CDT EKG completed. Results given to Dr. CHEN and scanned into [employer]. documented in this encounter ED Notes * Saúl Sutton RN - 06/15/2025 2:09 PM CDT Pt reports to the ed with co CP with radiation going into left arm. Pt reports that he has had painsince 06/02/25 and has been admitted into [facility] where they did 2 separate cardiac stents. Pt reports at the time [facility] he told them the CP had not resolved and they continued with dc. Pt reports that the did the cath through both femoral arteries. Pt is a/o X4 with even and unlabored breathing an d denies any SOB or ABD pain at this time documented in this encounter Miscellaneous Notes * Gen AI CALLUM - GENERATIVE AI HANDOFF NOTE - 06/15/2025 6:39 PM CDT ## ER_course: ## # DIAGNOSIS: Musculoskeletal chest pain. # The patient presented with chest pain radiating to the left arm, accompanied by numbness. He has a recent history of two stent placements due to elevated troponin levels, which were noted during his first hospital visit. The troponin levels increased significantly after the second stent placement. The patient is allergic to heparin, which caused blistering, and is not currently on any blood thinners. He is on aspirin, Plavix, nitroglycerin, and blood pressure medication. # During the ER visit, an EKG was performed, showing no abnormalities. Blood work was ordered to repeat troponin levels. The possibility of a blood clot was suggested by a casino cashier, but no immediate intervention was planned. The patient was administered dexamethasone (Decadron) 10 mg IV during the ED stay. # Abnormal findings included elevated troponin levels (baseline 48, 2-hour 45), elevated glucose (136), elevated calcium (10.4), elevated PROBNP (133), and elevated magnesium (2.7). The patient's blood pressure was 139/96, temperature 99.7 ??F, and SpO2 94%. ## Follow_up_orders: ## # The patient is to continue taking medications including atorvastatin, nitroglycerin, aspirin, metoprolol, isosorbide mononitrate, clopidogrel, mupirocin, triamcinolone acetonide, hydrocortisone, simvastatin, prednisone, amlodipine, and cyclobenzaprine. Gabapentin was discontinued. # Repeat blood tests to monitor troponin levels were ordered (PENDING AT DISCHARGE). # The patient should follow up with his casino cashier regarding the possibility of a blood clot and any further interventions needed. ## Home_Situation: ## # The patient is accompanied by his [id number], indicating some level of caregiver support. No specific transportation, financial, or language barriers were noted in the ER notes. documented in this encounter Plan of Treatment Upcoming Encounters Date Type Department Care Team (Late st Contact Info) Description 06/20/2025 3:00 PM CDT Office Visit [facility] [address] [phone] Ana Alcantar, ARIADNA [address] [place] [phone] 11/07/2025 8:40 AM DATA BASE ADMINISTRATOR Office Visit [facility] [address] [phone] Catalino Melgoza MD [address] [phone] documented as of this encounter Procedures Procedure Name Priority Date/Time Associated Diagnosis Comments TROPONIN 2 HR, 5TH GEN Timed Study 06/15/2025 4:10 PM CDT TROPONIN BASELINE, 5TH GEN Stat 06/15/2025 2:32 PM CDT CBC WITH DIFFERENTIAL Stat 06/15/2025 2:32 PM CDT PTT Stat 06/15/2025 2:32 PM CDT SEDIMENTATION RATE Stat 06/15/2025 2: 32 PM CDT PROTIME-INR Stat 06/15/2025 2:32 PM CDT D-DIMER Stat 06/15/2025 2:32 PM CDT C-REACTIVE PROTEIN Stat 06/15/2025 2: 32 PM CDT BRAIN NATRIURETIC PEPTIDE, BNP OR PROBNP Stat 06/15/2025 2:32 PM CDT MAGNESIUM LEVEL Stat 06/15/2025 2:32 PM CDT LIPASE Stat 06/15/2025 2:32 PM CDT COMPREHENSIVE METABOLIC PANEL Stat 06/15/2025 2:32 PM CDT documented in this encounter Results * (ABNORMAL) TROPONIN 2 HR, 5TH GEN (06/15/2025 4:10 PM CDT) TROPONIN T, 2 HR 5TH GEN 45(H) <=15 ng/L 06/15/2025 4:40 PM CDT [facility] DELTA 2HR TROPONIN T -3 See Interp. 06/15/2025 4:40 PM CDT [facility] Blood BLOOD SPECIMEN / Unknown Collection / Unknown 06/15/2025 4:10 PM CDT 06/15/2025 4:26 PM CDT [facility] - 06/15/2025 4:40 PM CDT Troponin elevated. Delta not changing. Delay in collection of timed specimen beyond recommended collection interval. Results must be interpreted in clinical context. us Marina Chen MD CHEMISTRY ORDERABLES Final Resu Performing Organization Address [facility]/ZIP Co de Phone Number [facility] CLIA # [id number] [address] [place] [address] * (ABNORMAL) TROPONIN BASELINE, 5TH GEN (06/15/2025 2:32 PM CDT) TROPONIN T, BASELINE 5TH GEN 48(H) <=15 ng/L 06/15/2025 3:16 PM CDT [facility] Blood BLOOD SPECIMEN / Unknown Collection / Unknown 06/15/2025 2:32 PM CDT 06/15/2025 2:48 PM CDT [facility] - 06/15/2025 3:16 PM CDT Troponin elevated. us Marina Chen MD CHEMISTRY ORDERABLES Final Resu Performing Organization Address City/[facility]/ZIP Co de Phone Number [facility] CLIA # [id number] [address] [place] [address] * (ABNORMAL) MAGNESIUM LEVEL (06/15/2025 2:32 PM CDT) MAGNESIUM 2.7(H) 1.6 - 2.4 mg/dL 06/15/2025 3:06 PM CDT [facility] Blood BLOOD SPECIMEN / Unknown Collection / Unknown 06/15/2025 2:32 PM CDT 06/15/2025 2:48 PM CDT us Marina Chen MD CHEMISTRY ORDERABLES Final Resu lt Performing Organization Address City/[facility] Co de Phone Number [facility] CLIA # [id number] [address] [place] [address] * C-REACTIVE PROTEIN (06/15/2025 2:32 PM CDT) [facility] CRP <3.0 <5.0 mg/L 06/15/2025 3:0 6 PM CDT [facility] Blood BLOOD SPECIMEN / Unknown Collection / Unknown 06/15/2025 2:32 PM CDT 06/15/2025 2:48 PM CDT us Marina Chen MD CHEMISTRY ORDERABLES Final Resu lt Performing Organization Address [facility] de Phone Number [facility] CLIA # [id number] [address] [place] [address] * (ABNORMAL) BRAIN NATRIURETIC PEPTIDE, BNP OR PROBNP (06/15/2025 2:32 PM CDT) Pathologist [facility] PROBNP, N TERMINAL 133(H) 0 - 125 pg/mL 06/15/2025 3:06 PM CDT [facility] Comment: INTERPRETIVE COMMENT based on diagnosis: Diagnostic NT pro-BNP cutoffs for Heart Failure in the absence of renal failure is suggested for the following ranges <75 years: <125 pg/mL >=75 years: <450 pg/mL Exclusionary rule out cut-point for Acute Decompensated Heart Failure(ADHF) All ages: <300 pg/mL Diagnostic NT pro-BNP cutoffs for Acute Decompensated Heart Failure(ADHF) in the absence of renal failure is suggested for the following ages <50 years: > 450 pg/mL 50-75 years: > 900 pg/mL >75 years: >1800 pg/mL Blood BLOOD SPECIMEN / Unknown Collection / Unknown 06/15/2025 2:32 PM CDT 06/15/2025 2:48 PM CDT us Marina Chen MD CHEMISTRY ORDERABLES Final Resu lt Performing Organization Address [facility]/ZIP Co de Phone Number [facility] CLIA # [id number] [address] [place] [address] * LIPASE (06/15/2025 2:32 PM CDT) LIPASE 43 13 - 60 U/L 06/15/2025 3:06 PM CDT [facility] Blood BLOOD SPECIMEN / Unknown Collection / Unknown 06/15/2025 2:32 PM CDT 06/15/2025 2:48 PM CDT us Marina Chen MD CHEMISTRY ORDERABLES Final Resu lt Performing Organization Address [facility] Co wv Phone Number [facility] CLIA # [id number] [address] [place] [address] * (ABNORMAL) COMPREHENSIVE METABOLIC PANEL (06/15/2025 2:32 PM CDT) SODIUM 138 136 - 145 mmol/L 06/15/2025 3:06 PM CDT [facility] POTASSIUM 4.4 3.5 - 5.1 mmol/L 06/15/2025 3:06 PM CDT [facility] CHLORIDE 100 98 - 107 mmol/L 06/15/2025 3:06 PM CDT [facility] CO2 27 22 - 29 mmol/L 06/15/2025 3:06 PM CDT [facility] CALCIUM 10.4(H) 8.8 - 10.2 mg/dL 06/15/2025 3:06 PM CDT [facility] BUN 18 8 - 23 mg/dL 06/15/2025 3:06 PM [facility] CREATININE 1.15 0.67 - 1.17 mg/dL 06/15/2025 3:06 PM [facility] GLUCOSE 136(H) 74 - 99 mg/dL 06/15/2025 3:06 PM [facility] TOTAL PROTEIN 7.6 6.6 - 8.7 g/dL 06/15/2025 3:06 PM [facility] ALBUMIN 4.6 3.5 - 5.2 g/dL 06/15/2025 3:06 PM [facility] BILIRUBIN TOTAL 0.5 0.0 - 1.2 mg/dL 06/15/2025 3:06 PM [facility] ALKALINE PHOSPHATASE 101 40 - 129 U/L 06/15/2025 3:06 PM [facility] AST 27 0 - 50 U/L 06/15/2025 3:06 PM [facility] Comment:Hemolysis present. R esult may be falsely elevated. ALT 29 0 - 50 U/L 06/15/2025 3:06 PM [facility] GFR >60 >=60 mL/min/1.7 3 sq meter 06/15/2025 3:06 PM [facility] Comment:eGFR calculated with 2020 CKD-EPI equation. Vegetarian diet, extremely high or low muscle mass, and may affect results. Cystatin C with Glomerular Filtration Rate is a suitable alternative for these patients. ANION GAP 11 5 - 20 mmol/L 06/15/2025 3:06 PM [facility] Blood BLOOD SPECIMEN / Unknown Collection / Unknown 06/15/2025 2:32 PM CDT 06/15/2025 2:48 PM CDT us Marina Chen MD CHEMISTRY ORDERABLES Final Resu lt [facility] CLIA # [id number] [address] [place] [address] * SEDIMENTATION RATE (06/15/2025 2:32 PM CDT) ESR (SEDIMENTATION RATE) 9 0 - 20 mm/Hr 06/15/2025 3:00 PM CDT [facility] Blood BLOOD SPECIMEN / Unknown Collection / Unknown 06/15/2025 2:32 PM CDT 06/15/2025 2:48 PM CDT [facility] - 06/15/2025 3:00 PM CDT Tube Lot: #[id number] Exp Date: 11/23/2026 QC1 LOT [id number] EXP.11/28/2025 QC2 LOT [id number] EXP.11/28/2025 Marina Chen MD HEMATOLOGY ORDERABLES Final Res ult [id number] [address] [place] [address] * D-DIMER (06/15/2025 2:32 PM CDT) Pathologist [facility] D-DIMER QUANT 0.35 <0.50 ug/mL FEU 06/15/2025 3:06 PM CDT [facility] Blood BLOOD SPECIMEN / Unknown Collection / Unknown 06/15/2025 2:32 PM CDT 06/15/2025 2:48 PM CDT [facility] - 06/15/2025 3:06 PM CDT D-Dimer assay cutoff value for exclusion of DVT and/or PE is <0.50 ug/mL FEU. As D-Dimer levels increase naturally with age, age stratification for patients over 50 is potentially more appropriate in determining whether a patient should undergo further evaluation for DVT and/or PE than a general cutoff of 0.50 ug/mL FEU. Clinical consideration is recommended. Age Stratified Cutoff Values: 50-60 years: 0.50-0.60 ug/mL FEU 61-70 years: 0.61-0.70 ug/mL FEU 71-80 years: 0.71-0.80 ug/mL FEU us Marina Chen MD HEMATOLOGY ORDERABLES Final Res ult Performing Organization Address City/[facility]/ZIP Co de Phone Number [facility] CLIA # [id number] [address] [place] [address] * PTT (06/15/2025 2:32 PM CDT) PTT 30.8 25.1 - 35.4 seconds 06/15/2025 2:59 PM CDT [facility] Blood BLOOD SPECIMEN / Unknown Collection / Unknown 06/15/2025 2:32 PM CDT 06/15/2025 2:48 PM CDT us Marina Chen MD HEMATOLOGY ORDERABLES Final Res ult Performing Organization Address [facility] de Phone Number [facility] CLIA # [id number] [address] [place] [address] * PROTIME-INR (06/15/2025 2:32 PM CDT) PROTIME 12.9 12.1 - 14.3 Seconds 06/15/2025 2:59 PM CDT [facility] INR 1.0 0.9 - 1.1 06/15/2025 2:59 PM CDT [facility] Blood BLOOD SPECIMEN / Unknown Collection / Unknown 06/15/2025 2:32 PM CDT 06/15/2025 2:48 PM CDT us Marina Chen MD HEMATOLOGY ORDERABLES Final Res ult Performing Organization Address [facility] Co de Phone Number [id number] [address] [place] [address] * (ABNORMAL) CBC WITH DIFFERENTIAL (06/15/2025 2:32 PM CDT) WBC 6.7 4.2 - 9.1 K/uL 06/15/2025 2:51 PM [facility] RBC 5.00 4.63 - 6.08 M/uL 06/15/2025 2:51 PM [facility] HEMOGLOBIN 14.8 13.7 - 17.5 g/dL 06/15/2025 2:51 PM [facility] HEMATOCRIT 43.8 40.1 - 51.0 % 06/15/2025 2:51 PM [facility] MCV 87.6 79.0 - 92.2 fL 06/15/2025 2:51 PM [facility] MCH 29.6 25.7 - 32.2 pg 06/15/2025 2:51 PM [facility] MCHC 33.8 32.3 - 36.5 g/dL 06/15/2025 2:51 PM [facility] RDW 13.0 11.0 - 14.5 % 06/15/2025 2:51 PM [facility] RDW-STDEV 40.8 36.9 - 56.9 fL 06/15/2025 2:51 PM [facility] PLATELETS 251 130 - 400 K/uL 06/15/2025 2:51 PM [facility] MPV 9.6(L) 10.0 - 14.8 fL 06/15/2025 2:51 PM [facility] NEUTROPHILS 64 34 - 68 % 06/15/2025 2:51 PM [facility] LYMPHOCYTES 25 22 - 53 % 06/15/2025 2:51 PM [facility] MONOCYTES 8 5 - 12 % 06/15/2025 2:51 PM [facility] EOSINOPHILS 2 1 - 7 % 06/15/2025 2:51 PM [facility] BASOPHILS 0 0 - 1 % 06/15/2025 2:51 PM [facility] IMMATURE GRANULOCYTES 1 % 06/15/2025 2:51 PM [facility] NEUTROPHIL ABSOLUTE 4.32 1.78 - 5.38 K/uL 06/15/2025 2:51 PM [facility] LYMPHOCYTE ABSOLUTE 1.67 1.20 - 3.40 K/uL 06/15/2025 2:51 PM CDT [facility] MONOCYTE ABSOLUTE 0.56 0.30 - 0.82 K/uL 06/15/2025 2:51 PM CDT [facility] EOSINOPHIL ABSOLUTE 0.10 0.04 - 0.54 K/uL 06/15/2025 2:51 PM CDT [facility] BASOPHILS ABSOLUTE 0.03 0.01 - 0.08 K/uL 06/15/2025 2:51 PM CDT [facility] IMMATURE GRANULOCYTES ABSOLUTE 0.04 K/uL 06/15/2025 2:51 PM CDT [facility] Blood BLOOD SPECIMEN / Unknown Collection / Unknown 06/15/2025 2:32 PM CDT 06/15/2025 2:48 PM CDT us Marina Chen MD HEMATOLOGY ORDERABLES Final Res ult [facility] [id number] [address] [place] [address] documented in this encounter Visit Diagnoses Diagnosis Musculoskeletal chest pain- Primary Other chest pain Musculoskeletal chest pain Other chest pain documented in this encounter Administered Medications Inactive Administered Medications - up to 3 most recent administrations Medication Order MAR Action Action Date Dose Rate Site dexAMETHasone (DECADRON) injection 10 mg 10 mg, IV, ONE TIME ONLY, 1 dose, On Fri06/15/25 at 1715, Routine Given 06/15/2025 5:29 PM CDT 10 mg sodium chloride flush injection 10 mL 10 mL, IV, EVERY 12 HOURS (BlD), First dose on Fri06/15/25 at 1415, Until Discontinued, Routine sodium chloride flush injection 10 mL 10 mL, IV, SEE ADMIN INSTRUCTIONS, Starting on Fri06/15/25 at 1412, Until Fri06/15/25 at 1951, Routine documented in this encounter Active and Recently Administered Medications Times are shown in CDT. Scheduled Medication Order 06/13/2025 06/14/2025 06/15/2025 dexAMETHasone (DECADRON) injection 10 mg (COMPLETED) 10 mg, IV, ONE TIME ONLY, 1 dose, On Fri06/15/25 at 1715, Routine 1729 (Given - Provid er: Saúl Sutton RN) sodium chloride flush injection 10 mL 10 mL, IV, EVERY 12 HOURS (BlD), First dose on Fri06/15/25 at 1415, Until Discontinued, Routine 1415 (Due) sodium chloride flush injection 10 mL 10 mL, IV, SEE ADMIN INSTRUCTIONS, Starting on Fri06/15/25 at 1412, Until Fri06/15/25 at 1951, Routine documented in this encounter Care Teams Yield Engineer Relationship Specialty Start Date End Date Catalino Melgoza MD [address] [place] [address] PCP - General Family Practice 12/31/22 documented as of this encounter
--- OUTSIDE RECORDS SUMMARY | 2025-06-17 11:29 | XMS_ITS | Encounter Summary ---
Author Organization [facility] Address [address] [place] [address] Care Team Providers Care Dance Master Name Role Phone Catalino Melgoza MD Primary Care Provider [phone] Encounter Details Date Type Department Care Team (Late st Contact Info) Description 12/31/2021 Digital Self COVID-1 9 Monitoring [facility] ABSTRACTION Provider, Abstract NO ADDRESS ON FILE Social History Tobacco Use Types Packs/Day Years Used Date Smoking Tobacco: Never Smokeless Tobacco: Never Sex and Gender Information Value Date Recorded Sex Assigned at Not on file Legal Sex Male 3:48 PM MEAT TRIMMER Gender Identity Not on file Sexual Orientation Not on file COVID-19 Exposure Response Date Recorded In the last month, have you been in contact with someone who was confirmed or suspected to have Coronavirus / COVID-19? No / Unsure 12/22/2021 4:00 PM MEAT TRIMMER documented as of this encounter Plan of Treatment Upcoming Encounters Date Type Department Care Team (Late st Contact Info) Description 06/20/2025 3:00 PM CDT Office Visit [address] [address] Ana Alcantar NP [address] [place] [phone] 11/07/2025 8:40 AM MEAT TRIMMER Office Visit [address] [address] Catalino Melgoza MD [address] [address] documented as of this encounter Visit Diagnoses Not on filedocumented in this encounter Care Teams Dance Master Relationship Specialty Start Date End Date Catalino Melgoza MD [address] [place] [address] PCP - General Family Practice 12/31/22 documented as of this encounter
--- OUTSIDE RECORDS SUMMARY | 2025-06-17 11:29 | XMS_ITS | Clinical Summary ---
Author Organization [facility] Address [address] [address] Phone Care Team Providers Care Pantry Cook Name Role Phone Catalino Melgoza MD Primary Care Provider [phone] Allergies Active Allergy Reactions Criticality Noted Date [...] daily. 90 Tablet 2 07/02/20 24 Active simvastatin (ZOCOR) 20 mg tabletIndications: [...] daily. 5 Gram 1 06/07/20 25 Active predniSONE (DELTASONE) 20 mg tablet Take 1 Tablet (20 mg) by mouth daily with breakfast for 4 days. 4 Tablet 06/16/20 25 025 Active Active Problems Problem Noted Date Diagnosed Date Musculoskeletal chest pain 06/15/2025 Hyperlipemia 07/02/2024 Benign hypertension 07/02/2024 Encounters Date Type Department Care Team Description 06/15/2025 2:10 PM CDT - 06/15/2025 5:51 PM CDT Emergency [facility] Emergency Medicine [address] [address] Marina Bar MD Musculoskeletal chest pain (Primary Dx) Discharge Disposition: Home or Self Care 06/15/2025 Travel 06/15/[address] [address] Catalino Melgoza MD Patient Communication (/) 06/15/[address] [address] Catalino Melgoza MD Chest Pain 06/07/2025 11:00 AM CDT Office Visit [address] [phone] nAa Alcantar NP Hospital discharge follow-up (Primary Dx); Oral lesion; Blisters of multiple sites; Chest pain, unspecified type; Morbid obesity (CMS/HCC) 06/07/[address] [address] Provider, Abstract 06/07/2025 Abstract [facility] [address] [place] [address] Provider, Abstract 06/07/2025 Telephone [facility] [address] [place] [address] Ana Alcantar NP Hospital Follow Up 05/17/2025 External Device Data [facility] ABSTRACTION Provider, Abstract 05/11/2025 External Device Data [facility] Provider, Abstract 05/10/2025 External Device Data [facility] Provider, Abstract 04/15/2025 3:45 PM CDT - 04/15/2025 11:59 PM CDT Hospital Encounter [facility] [place] [address] [place] [address] Amb[facility], [place] Discharge Disposition: Home or Self Care [...] on file Legal 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 Gender Identity Not on file Sexual Orientation [...] Mass Index 34.13 06/15/2025 2:04 PM CDT Plan of Treatment Upcoming Encounters Date Type Department Care Team (Late st Contact Info) Description 06/20/2025 3:00 PM CDT Office Visit [facility] [address] [address] Ana Alcantar NP [address] [place] [address] 11/07/2025 8:40 AM KOSHER DIETARY SERVICE SUPERVISOR Office Visit [address] [address] Catalino Melgoza MD [address] [address] Health Maintenance Due Date Last [...] YEAR (AUTO ORDER) 10/09/2024 10/09/2023 Medicare Advantage (ND) Prev entative Visit/Annual Wellness Visit 11/24/2024 11/13/2022 [...] 5TH GEN Stat 06/15/2025 2:32 PM CDT MAGNESIUM LEVEL Stat 06/15/2025 2:32 PM CDT C-REACTIVE PROTEIN Stat 06/15/2025 2: 32 PM CDT BRAIN NATRIURETIC PEPTIDE, BNP OR PROBNP Stat 06/15/2025 2:32 PM CDT LIPASE Stat 06/15/2025 2:32 PM CDT COMPREHENSIVE METABOLIC PANEL Stat 06/15/2025 2:32 PM CDT SEDIMENTATION RATE Stat 06/15/2025 2: 32 PM CDT D-DIMER Stat 06/15/2025 2:32 PM CDT PTT Stat 06/15/2025 2:32 PM CDT PROTIME-INR Stat 06/15/2025 2:32 PM CDT CBC WITH DIFFERENTIAL Stat 06/15/2025 2:32 PM CDT SD ECG ROUTINE ECG W/LEAST 12 LDS W/I&R Routine 06/07/2025 11:00 AM CDT Chest pain, unspecified type HEMOGLOBIN A1C Routine 07/02/2024 9:58 AM CDT Wellness examination ENDOSCOPY, COLON, DIAGNOSTIC Stat 12/17/2022 Bleeding per rectum History of colon polyps from Last 3 Months or Most Recently Relevant to Health Maintenance Results * (ABNORMAL) TROPONIN 2 HR, 5TH GEN (06/15/2025 4:10 PM CDT) TROPONIN T, 2 HR 5TH GEN 45(H) <=15 ng/L 06/15/2025 4:40 PM CDT [facility] DELTA 2HR TROPONIN T -3 See Interp. 06/15/2025 4:40 PM CDT [facility] Blood BLOOD SPECIMEN / Unknown Collection / Unknown 06/15/2025 4:10 PM CDT 06/15/2025 4:26 PM CDT [facility] - 06/15/2025 4:40 PM CDT Troponin elevated. Delta not changing. Delay in collection of timed specimen beyond recommended collection interval. Results must be interpreted in clinical context. Marina Bar MD CHEMISTRY ORDERABLES Final Resu lt [facility] CLIA # [id number] [address] [place] [id number] * (ABNORMAL) TROPONIN BASELINE, 5TH GEN (06/15/2025 2:32 PM CDT) TROPONIN T, BASELINE 5TH GEN 48(H) <=15 ng/L 06/15/2025 3:16 PM CDT [facility] Blood BLOOD SPECIMEN / Unknown Collection / Unknown 06/15/2025 2:32 PM CDT 06/15/2025 2:48 PM CDT [facility] - 06/15/2025 3:16 PM CDT Troponin elevated. Marina Bar MD CHEMISTRY ORDERABLES Final Resu lt [facility] CLIA # [id number] [address] [place] [address] * (ABNORMAL) CBC WITH DIFFERENTIAL (06/15/2025 2:32 PM CDT) WBC 6.7 4.2 - 9.1 K/uL 06/15/2025 2:51 PM CDT [facility] RBC 5.00 4.63 - 6.08 M/uL 06/15/2025 2:51 PM CDT [facility] HEMOGLOBIN 14.8 13.7 - 17.5 g/dL 06/15/2025 2:51 PM [facility] HEMATOCRIT 43.8 40.1 - 51.0 % 06/15/2025 2:51 PM [facility] MCV 87.6 79.0 - 92.2 fL 06/15/2025 2:51 PM [facility] MCH 29.6 25.7 - 32.2 pg 06/15/2025 2:51 PM [facility] MCHC 33.8 32.3 - 36.5 g/dL 06/15/2025 2:51 PM [facility] RDW 13.0 11.0 - 14.5 % 06/15/2025 2:51 PM [facility] RDW-STDEV 40.8 36.9 - 56.9 fL 06/15/2025 2:51 PM [facility] PLATELETS 251 130 - 400 K/uL 06/15/2025 2:51 PM [facility] MPV 9.6(L) 10.0 - 14.8 fL 06/15/2025 2:51 PM [facility] NEUTROPHILS 64 34 - 68 % 06/15/2025 2:51 PM [facility] LYMPHOCYTES 25 22 - 53 % 06/15/2025 2:51 PM [facility] MONOCYTES 8 5 - 12 % 06/15/2025 2:51 PM [facility] EOSINOPHILS 2 1 - 7 % 06/15/2025 2:51 PM [facility] BASOPHILS 0 0 - 1 % 06/15/2025 2:51 PM [facility] IMMATURE GRANULOCYTES 1 % 06/15/2025 2:51 PM [facility] NEUTROPHIL ABSOLUTE 4.32 1.78 - 5.38 K/uL 06/15/2025 2:51 PM [facility] LYMPHOCYTE ABSOLUTE 1.67 1.20 - 3.40 K/uL 06/15/2025 2:51 PM [facility] MONOCYTE ABSOLUTE 0.56 0.30 - 0.82 K/uL 06/15/2025 2:51 PM CDT [facility] EOSINOPHIL ABSOLUTE 0.10 0.04 - 0.54 K/uL 06/15/2025 2:51 PM CDT [facility] BASOPHILS ABSOLUTE 0.03 0.01 - 0.08 K/uL 06/15/2025 2:51 PM CDT [facility] IMMATURE GRANULOCYTES ABSOLUTE 0.04 K/uL 06/15/2025 2:51 PM CDT [facility] Blood BLOOD SPECIMEN / Unknown Collection / Unknown 06/15/2025 2:32 PM CDT 06/15/2025 2:48 PM CDT us Marina Bar MD HEMATOLOGY ORDERABLES Final Res ult Performing Organization Address City/[facility] [address]/ZIP Co de Phone Number [facility] CLIA # [id number] [address] [place] [address] * PTT (06/15/2025 2:32 PM CDT) PTT 30.8 25.1 - 35.4 seconds 06/15/2025 2:59 PM CDT [facility] Blood BLOOD SPECIMEN / Unknown Collection / Unknown 06/15/2025 2:32 PM CDT 06/15/2025 2:48 PM CDT us Marina Bar MD HEMATOLOGY ORDERABLES Final Res ult [facility] CLIA # [id number] [address] [place] [address] [phone] * SEDIMENTATION RATE (06/15/2025 2:32 PM CDT) ESR (SEDIMENTATION RATE) 9 0 - 20 mm/Hr 06/15/2025 3:00 PM CDT [facility] Blood BLOOD SPECIMEN / Unknown Collection / Unknown 06/15/2025 2:32 PM CDT 06/15/2025 2:48 PM CDT [facility] - 06/15/2025 3:00 PM CDT Tube Lot: #[id number] Exp Date: 11/23/2026 QC1 LOT [id number] EXP.11/28/2025 QC2 LOT [id number] EXP.11/28/2025 Marina Bar MD HEMATOLOGY ORDERABLES Final Res ult Performing Organization Address [facility] [address]/[facility] Co de Phone Number [facility] # [id number] [address] [place] [address] * PROTIME-INR (06/15/2025 2:32 PM CDT) Pathologist [facility] PROTIME 12.9 12.1 - 14.3 Seconds 06/15/2025 2:59 PM CDT [facility] INR 1.0 0.9 - 1.1 06/15/2025 2:59 PM CDT [facility] Blood BLOOD SPECIMEN / Unknown Collection / Unknown 06/15/2025 2:32 PM CDT 06/15/2025 2:48 PM CDT Marina Bar MD HEMATOLOGY ORDERABLES Final Res ult Performing Organization Address [facility] [address]/[facility] Co de Phone Number [facility] # [id number] [address] [place] [address] * D-DIMER (06/15/2025 2:32 PM CDT) Pathologist [facility] D-DIMER QUANT 0.35 <0.50 ug/mL FEU 06/15/2025 3:06 PM CDT [facility] Blood BLOOD SPECIMEN / Unknown Collection / Unknown 06/15/2025 2:32 PM CDT 06/15/2025 2:48 PM CDT [facility] - 06/15/2025 3:06 PM CDT D-Dimer assay [...] ug/mL FEU 71-80 years: 0.71-0.80 ug/mL FEU Marina Bar MD HEMATOLOGY ORDERABLES Final Res ult Performing Organization Address City/[facility] [address]/ZIP Co de Phone Number [facility] CLIA # [id number] [address] [place] [address] * C-REACTIVE PROTEIN (06/15/2025 2:32 PM CDT) CRP <3.0 <5.0 mg/L 06/15/2025 3:0 6 PM CDT [facility] Blood BLOOD SPECIMEN / Unknown Collection / Unknown 06/15/2025 2:32 PM CDT 06/15/2025 2:48 PM CDT Marina Bar MD CHEMISTRY ORDERABLES Final Resu lt Performing Organization Address [facility] [address] [facility] Co de Phone Number [facility] CLIA # [id number] [address] [place] [address] * (ABNORMAL) BRAIN NATRIURETIC PEPTIDE, BNP OR PROBNP (06/15/2025 2:32 PM CDT) PROBNP, N TERMINAL 133(H) 0 - 125 pg/mL 06/15/2025 3:06 PM CDT [facility] Comment: INTERPRETIVE COMMENT based on diagnosis: Diagnostic [...] CDT 06/15/2025 2:48 PM CDT us Marina Bar MD CHEMISTRY ORDERABLES Final Resu lt Performing Organization Address City/[facility] [address]/ZIP Co de Phone Number [facility] CLIA # [id number] [address] [place] [address] * (ABNORMAL) MAGNESIUM LEVEL (06/15/2025 2:32 PM CDT) MAGNESIUM 2.7(H) 1.6 - 2.4 mg/dL 06/15/2025 3:06 PM CDT [facility] Blood BLOOD SPECIMEN / Unknown Collection / Unknown 06/15/2025 2:32 PM CDT 06/15/2025 2:48 PM CDT us Marina Bar MD CHEMISTRY ORDERABLES Final Resu lt Performing Organization Address [facility] [address] [facility] Co de Phone Number [facility] CLIA # [id number] [address] [place] [address] * LIPASE (06/15/2025 2:32 PM CDT) LIPASE 43 13 - 60 U/L 06/15/2025 3:06 PM CDT [facility] Blood BLOOD SPECIMEN / Unknown Collection / Unknown 06/15/2025 2:32 PM CDT 06/15/2025 2:48 PM CDT us Marina Bar MD CHEMISTRY ORDERABLES Final Resu lt Performing Organization Address City/[facility] [address]/ZIP Co de Phone Number [facility] CLIA # [id number] [address] [place] [address] * (ABNORMAL) COMPREHENSIVE METABOLIC PANEL (06/15/2025 2:32 PM CDT) SODIUM 138 136 - 145 mmol/L 06/15/2025 3:06 PM [facility] POTASSIUM 4.4 3.5 - 5.1 mmol/L 06/15/2025 3:06 PM [facility] CHLORIDE 100 98 - 107 mmol/L 06/15/2025 3:06 PM [facility] CO2 27 22 - 29 mmol/L 06/15/2025 3:06 PM [facility] CALCIUM 10.4(H) 8.8 - 10.2 mg/dL 06/15/2025 3:06 PM [facility] BUN 18 8 - 23 mg/dL 06/15/2025 3:06 PM [facility] CREATININE 1.15 0.67 - 1.17 mg/dL 06/15/2025 3:06 PM [facility] GLUCOSE 136(H) 74 - 99 mg/dL 06/15/2025 3:06 PM [facility] TOTAL PROTEIN 7.6 6.6 - 8.7 g/dL 06/15/2025 3:06 PM [facility] ALBUMIN 4.6 3.5 - 5.2 g/dL 06/15/2025 3:06 PM [facility] BILIRUBIN TOTAL 0.5 0.0 - 1.2 mg/dL 06/15/2025 3:06 PM [facility] ALKALINE PHOSPHATASE 101 40 - 129 U/L 06/15/2025 3:06 PM [facility] AST 27 0 - 50 U/L 06/15/2025 3:06 PM [facility] Comment:Hemolysis present. R esult may be falsely elevated. ALT 29 0 - 50 U/L 06/15/2025 3:06 PM [facility] GFR >60 >=60 mL/min/1.7 3 sq meter 06/15/2025 3:06 PM [facility] Comment:eGFR calculated with 2020 CKD-EPI equation. Vegetarian diet, extremely high or low muscle mass, and may affect results. Cystatin C with Glomerular Filtration Rate is a suitable alternative for these patients. ANION GAP 11 5 - 20 mmol/L 06/15/2025 3:06 PM CDT [facility] Blood BLOOD SPECIMEN / Unknown Collection / Unknown 06/15/2025 2:32 PM CDT 06/15/2025 2:48 PM CDT us Marina Bar MD CHEMISTRY ORDERABLES Final Resu lt Performing Organization Address [facility]/ZIP Co de Phone Number [facility] CLIA # [id number] [address] [facility] [address] [place], [place] [address] * SD ECG ROUTINE ECG W/LEAST 12 LDS W/I&R (06/07/2025 11:00 AM CDT) Narrative [facility] - 06/07/2025 11:00 AM CDT Catalino Melgoza [...] findings Clinical impression: normal ECG Ana Alcantar NP ECG ORDERABLES Edited Result - Final Performing Organization Address [facility] Co de Phone Number [facility] CLIA# [id number] [address] [facility] [address] [facility] [address] [place] [address] * (ABNORMAL) HEMOGLOBIN A1C (07/02/2024 9:58 AM [...] children. ESTIMATED AVERAGE GLUCOSE (MG/DL) 134 mg/dL [facility] ESTIMATED AVERAGE GLUCOSE (MMOL/L) 7.4 mmol/L [facility] Comment: This test was performed on the Compar[employer] jessica c503 platform. Effective 02/09/24, a change in test platforms from the Rosales Psychiatric Aide Instructor to the Jennifer jessica c503 may have shifted HbA1c results compared to historical results. Based on laboratory validation testing conducted at [facility], the Jennifer platform relative to the Rosales [...] platforms is not recommended. Test Performed at: [facility] [id number] [facility] [place] [address] Clarissa Joseph MD Blood 07/02/2024 9:58 AM CDT 07/03/2024 4:54 AM CDT Ana Alcantar NP CHEMISTRY ORDERABLES Final Res ult [facility] [phone] [facility] [address] [place] [address] * ENDOSCOPY, COLON, DIAGNOSTIC (12/17/2022) us Loreto Swartz TELEGRAPH PLANT MAINTAINER GI PROCEDURE ORDERABLES Final Result from Last 3 Months or Most Recently Relevant to Health Maintenance Insurance [facility] [id number] [facility] Care Teams Pantry Cook Relationship Specialty Start Date End Date Catalino Melgoza MD [address] [place] [address] PCP - General Family Practice 12/31/22
--- OUTSIDE RECORDS SUMMARY | 2025-06-17 11:29 | XMS_ITS | Encounter Summary ---
Author Organization [facility] Address [address] [place] [address] Care Team Providers Care Design Coordinator Name Role Phone Catalino Melgoza MD Primary Care Provider [phone] Reason for Visit * Reason Comments Chest Pain Encounter Details Date Type Department Care Team (Late st Contact Info) Description 06/15/2025 Telephone [facility] Medicine [address] [address] Catalino Melgoza MD [address] [place] [address] Chest Pain Social History Tobacco Use Types Packs/Day Years Used Date Smoking Tobacco: Never Smokeless Tobacco: Never Alcohol Use Standard Drinks/Week Comments Never 0 (1 standard drink = 0.6 oz pur e alcohol) Sex and Gender Information Value Date Recorded Sex Assigned at Not on file 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 Discussed that he is currently at [facility] and he wants to be sentto [facility]. Nurse explained that Dr. Melgoza doesn't have admitting or transferring privileges, if he is wanting to be seen at a [facility] ER he could do that, and if transferring was needed he could request where he wanted to be transferred to. He states that he will think about it and if he needs anything additional will call us back. Voiced understanding. Maria Dolores RN * Telephone Encounter - RonakKiana prater - 06/15/2025 10:39 AM CDT Copied from [facility] #[id number]. Topic: CPA Information Request - Appointment/Location Information >> Jun 15, 2025 10:37 AM Kiana Yeboah wrote: Caller is requesting the following information: Other Patient has been in and out of the hospital the last few days with chest pains. He is in the hospital again today. They are telling him there is nothing wrong with him. He is asking if Dr. Melgoza can get him transferred to [facility]? Would like a call back. Caller Notes (Not Required): Ask if caller would like to also receive a link in [employer] to view the details for the upcoming appointments. Would caller like [employer] message with link to appointment details? No Patient Access Instructions 1. Link appointment in attachment section below. 2. Select [employer] and [employer]. documented in this encounter Plan of Treatment Upcoming Encounters Date Type Department Care Team (Late st Contact Info) Description 06/20/2025 3:00 PM CDT Office Visit [address] [address] Ana Alcantar NP [address] [place] [address] 11/07/2025 8:40 AM SHOWER SCREEN INSTALLER Office Visit [address] [address] Catalino Melgoza MD [address] [phone] documented as of this encounter Visit Diagnoses Not on filedocumented in this encounter Care Teams Design Coordinator Relationship Specialty Start Date End Date Catalino Melgoza MD [address] [place] [address] PCP - General Family Practice 12/31/22 documented as of this encounter
--- OUTSIDE RECORDS SUMMARY | 2025-06-17 11:29 | XMS_ITS | Encounter Summary ---
Author Organization [facility] Address [address] 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 Gender Identity Not on file Sexual Orientation Not on file documented as of this encounter Plan of Treatment Upcoming Encounters Date Type Department Care Team (Late st Contact Info) Description 06/20/2025 3:00 PM CDT Office Visit [address] [phone] Ana Alcantar NP [address] [place] [address] 11/07/2025 8:40 AM EDGING MACHINE CATCHER Office Visit [address] [address] Catalino Melgoza MD [employer] [address] [address] documented as of this encounter Visit Diagnoses Not on filedocumented in this encounter Care Teams Supervisory Examiner Relationship Specialty Start Date End Date Catalino Melgoza MD [address] [place] [address] PCP - General Family Practice 12/31/22 documented as of this encounter
--- OUTSIDE RECORDS SUMMARY | 2025-06-17 11:29 | XMS_ITS | Encounter Summary ---
Author Organization [facility] Address 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 No / Unsure 12/22/2021 4:00 PM JACQUARD LOOM FIXER documented as of this encounter Plan of Treatment Upcoming Encounters Date Type Department Care Team (Late st Contact Info) Description 06/20/2025 3:00 PM CDT Office Visit [address] [address] Ana Alcantar NP [address] [place] [address] 11/07/2025 8:40 AM JACQUARD LOOM FIXER Office Visit [address] [phone] Catalino Melgoza MD [address] [address] documented as of this encounter Visit Diagnoses Not on filedocumented in this encounter Care Teams Audio Video Mechanic Relationship Specialty Start Date End Date Catalino Melgoza MD [address] [place] [address] PCP - General Family Practice 12/31/22 documented as of this encounter
--- OUTSIDE RECORDS SUMMARY | 2025-06-17 11:29 | XMS_ITS | Encounter Summary ---
Author Organization [facility] Address [address] [place] [address] Care Team Providers Care Telegraph Plant Maintainer Name Role Phone Catalino Melgoza MD Primary Care Provider [phone] Reason for Visit * Reason Onset Date Comments Patient Communication 06/15/2025 Encounter Details Date Type Department Care Team (Late st Contact Info) Description 06/15/2025 Telephone [facility] [address] [address] Catalino Melgoza MD [facility] [address] [address] Patient Communication (/) Social History Tobacco Use Types Packs/Day Years Used Date Smoking Tobacco: Never Smokeless Tobacco: Never Alcohol Use Standard Drinks/Week Comments Never 0 (1 standard drink = 0.6 oz pur e alcohol) Sex and Gender Information Value Date Recorded Sex Assigned at Not on file Legal Sex Male 3:48 PM INTERVENTIONAL RADIOLOGY RN Gender Identity Not on file Sexual Orientation Not on file documented as of this encounter Miscellaneous Notes * Telephone Encounter - Maricel Florian - 06/15/2025 2:48 PM CDT Advised patient to tell the Dr at the ER he was in if he wanted to transfer to another hospital also that Dr. Melgoza is unable to transfer him or direct admit. * Telephone Encounter - Ale Lindo - 06/15/2025 1:55 PM CDT Lea stopped by asking to speak with Chelsea in regards to patient. Advised Lea that Chelsea is in [place] today, but will be here tomorrow. Lea stated she called and the call place told her to take patient to the ER. But she wanted totalk to Chelsea, Chelsea knows the patient. Lea stated that patient is having chest pain out of the roof. I advised patient that she could bring bring patient in to the clinic and we could do a EKG.Lea stated that EKG's are normal, but soon as he gets home that's when the pain starts. Lea advised us that they will skip the clinic and just go to the ER. Ale Lindo, 06/15/2025 2:00 PM documented in this encounter Plan of Treatment Upcoming Encounters Date Type Department Care Team (Late st Contact Info) Description 06/20/2025 3:00 PM CDT Office Visit [address] [phone] Ana Alcantar NP [address] [place] [address] 11/07/2025 8:40 AM INTERVENTIONAL RADIOLOGY RN Office Visit [address] [phone] Catalino Melgoza MD [address] [phone] documented as of this encounter Visit Diagnoses Not on filedocumented in this encounter Care Teams Telegraph Plant Maintainer Relationship Specialty Start Date End Date Catalino Melgoza MD [address] [place] [address] PCP - General Family Practice 12/31/22 documented as of this encounter
--- OUTSIDE RECORDS SUMMARY | 2025-06-17 11:29 | XMS_ITS | Encounter Summary ---
Author Organization [facility] Address 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 No / Unsure 12/22/2021 4:00 PM SENIOR PRODUCT MANAGER documented as of this encounter Plan of Treatment Upcoming Encounters Date Type Department Care Team (Late st Contact Info) Description 06/20/2025 3:00 PM CDT Office Visit [address] [phone] Ana Alcantar NP [address] [place] [phone] 11/07/2025 8:40 AM SENIOR PRODUCT MANAGER Office Visit [address] [phone] Catalino Melgoza MD [address] [phone] documented as of this encounter Visit Diagnoses Not on filedocumented in this encounter Care Teams Mason Tender Relationship Specialty Start Date End Date Catalino Melgoza MD [address] [place] [address] PCP - General Family Practice 12/31/22 documented as of this encounter
--- OUTSIDE RECORDS SUMMARY | 2025-06-17 11:29 | XMS_ITS | Encounter Summary ---
Author Organization [facility] Address 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 No / Unsure 12/22/2021 4:00 PM SOUND ART INSTRUCTOR documented as of this encounter Plan of Treatment Upcoming Encounters Date Type Department Care Team (Late st Contact Info) Description 06/20/2025 3:00 PM CDT Office Visit [address] [phone] Ana Alcantar NP [address] [place] [phone] 11/07/2025 8:40 AM SOUND ART INSTRUCTOR Office Visit [address] [phone] Catalino Melgoza MD [address] [phone] documented as of this encounter Visit Diagnoses Not on filedocumented in this encounter Care Teams Analytical Research Chemist Relationship Specialty Start Date End Date Catalino Melgoza MD [address] [place] [address] PCP - General Family Practice 12/31/22 documented as of this encounter
--- OUTSIDE RECORDS SUMMARY | 2025-06-17 11:29 | XMS_ITS | Encounter Summary ---
Author Organization [facility] Address 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 documented as of this encounter Plan of Treatment Upcoming Encounters Date Type Department Care Team (Late st Contact Info) Description 06/20/2025 3:00 PM CDT Office Visit [address] [phone] Ana Alcantar NP [address] [place] [phone] 11/07/2025 8:40 AM OTHER WOOD PROCESSING MACHINE OPERATOR Office Visit [address] [phone] Catalino Melgoza MD [address] [phone] documented as of this encounter Visit Diagnoses Not on filedocumented in this encounter Care Teams Classification Inspector Relationship Specialty Start Date End Date Catalino Melgoza MD [address] [place] [address] PCP - General Family Practice 12/31/22 documented as of this encounter
--- OUTSIDE RECORDS SUMMARY | 2025-06-17 11:29 | XMS_ITS | Encounter Summary ---
Author Organization [facility] Address 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 No / Unsure 12/22/2021 4:00 PM CORROSION CONTROL TECHNICIAN documented as of this encounter Plan of Treatment Upcoming Encounters Date Type Department Care Team (Late st Contact Info) Description 06/20/2025 3:00 PM CDT Office Visit [address] [phone] Ana Alcantar NP [address] [place] [phone] 11/07/2025 8:40 AM CORROSION CONTROL TECHNICIAN Office Visit [address] [phone] Catalino Melgoza MD [address] [phone] documented as of this encounter Visit Diagnoses Not on filedocumented in this encounter Care Teams Electronic Intelligence Officer Relationship Specialty Start Date End Date Catalino Melgoza MD [address] [place] [address] PCP - General Family Practice 12/31/22 documented as of this encounter
== END 2025-06-15 13:00 | disposition home or self-care (01) ==
LOC: ER 03:13 → ER IP 03:49 → CSU 18:45 → ER IP 06-17 11:25
PROVIDERS: Internal Medicine Cardiovascular Disease; Admitting Provider Student in an Organized Health Care Education/Training Program; Emergency Provider Emergency Medicine; Visit Provider Internal Medicine
DX: I25.10 Atherosclerotic heart disease of native coronary artery without angina pectoris (principal); I24.9 Acute ischemic heart disease, unspecified; Z95.5 Presence of coronary angioplasty implant and graft; E78.5 Hyperlipidemia, unspecified; Z79.82 Long term (current) use of aspirin; I10 Essential (primary) hypertension
CPT/HCPCS: 36415; 71045; 80053; 82550; 83690; 83880; 84484; 85025; 85610; 85730; 93005; 96365; 96372; 96375; 96376; 99285; G0378; J1652; J1885; J2270; J2405; J3490; J9999